=== PATIENT | male | born 1955 | race Caucasian/White ===

== ENCOUNTER 2016-02-25 14:46 | Emergency (ER) | payer OTHER ==
[~2016-02-25] VITALS: Ht 185.4 cm; Wt 138.6 kg
[~2016-02-25 14:46] MED LIST: ALLERGY RELIEF10 M1 PO; ALLOPURINOL300 MG PO; AMLACTIN TP; ARTIFICIAL TEAR15 M7 OP; ASPART; ASPI325T6 PO; ASPIRIN 81M81 MG/TA2 PO; ASPIRIN E.C. 8181 MG PO; BACTROBAN15 GM TOP; BENADRYL25 M2 PO; BENADRYL50 MG; BENADRYL50 MG PO; BENTYL 10MG10 MG/CAP PO; BISACODYL5 MG PO; BUDEPRION SR100 MG PO; CARAFATE 1GM1 G PO; CARDENE 30MG CA30 M1 PO; CARDIZEM120 MG; CINNAMON500 MG PO; CLARITIN 1010 MG/TAB PO; CLARITIN LIQUI-10 MG; COLACE-T100 MG PO; CROMOLYN; CYCLOBENZAPRINE10 MG PO; DETEMIR SQ; DIPHENHYDRAMINE25 MG PO; DUO-KAPS1 CAP PO; FERROUS SU325 MG/TAB PO; FIBRO-XL1 CAP PO; FLOMAX 0.40.4 MG/CAP PO; FLONASE NASAL S16 GM NS; GLUCOPHAGE500 MG/TAB PO; HCTZ12.5TAB PO; HEMORRHOIDAL RC; HYDROCHLOR50 MG PO; HYDRODIURIL50 MG PO; INSULIN N (N100 U/ML SC; K-DUR 2020 MEQ PO; KLOR-CON M2020 MEQ PO; LAMISIL AT1% TOP; LASIX 20MG TABL20 MG PO; LEVEMIR100 U/ML SQ; LEVITRA20 MG PO; LIORESAL20 MG PO; LIPITOR 10MG10 MG PO; LIPITOR20 MG PO; LISINOPRIL40 MG PO; LOPRESSOR 550 MG/TAB PO; LOTRIMIN15 GM TOP; MORPHINE 1515 MG/TAB PO; MORPHINE SULFAT30 M5 PO; MOTRIN800 MG PO; MS CONTIN 115 MG/TAB PO; MS CONTIN 330 MG/TAB PO; MULTI VITAMINS1 TAB PO; MULTI-VITAMIN W1 TA1 PO; NATURAL C500 MG PO; NEURONTIN600 MG/TAB PO; NOVOLIN N100 U/ML SC; NOVOLOG FLEX100 U/ML SC; NOVOLOG FLEX100 U/ML SQ; OMEPRAZOLE20 MG PO; ONGLYZA5 MG PO; ORAMORPH SR15 MG PO; PERCOCET 325 MG1 TA2 PO; PERIDEX (CHLOR480 ML MM; PHENERGAN 25 TA25 MG PO; PHENTERMINE15 MG; POTASSIUM CHLO10 ME2 PO; PRILOSEC 20MG20 MG; PRILOSEC 20MG20 MG PO; PROAIR HFA0.09 MG/AC IH; SEN-O-TABS8.6 MG PO; SENNO8.6 MG PO; SIMVASTATIN80 MG PO; STOOL SOFTENER100 M2 PO; TIAZAC240 MG PO; TOPROL XL 25MG25 MG PO; TRIAMCINOLONE0.025% TOP; TRIAMCINOLONE0.1% TP; ULTRAM 50MG TAB50 MG; VIAGRA100 MG PO; VITAMIN D 1001000 IU PO; VITAMIN D31000 I1; VITAMIN D31000 IU PO; XIFAXAN200 MG PO; ZESTRIL40 MG PO; ZITHROMAX 250M250 MG PO; ZOCOR 40MG40 MG PO; ZOFRAN 4MG T4 MG/TAB PO; ZYLOPRIM 300MG300 MG PO; [UNRECOGNIZED DRUG - CODE] PO; [UNRECOGNIZED DRUG - OTHER]; [UNRECOGNIZED DRUG - OTHER] TP
[2016-02-25 14:48] VITALS: BP 164/93; TEMP 96.8
[2016-02-25 15:24] LABS: BASO # 0.1 (0.0-0.2); BASO % 0.5 % (0.0-2.0); EOS # 0.4 (0.0-0.7); EOS % 3.7 % (0-4.0); GRAN # 6.4 (1.4-6.5); GRAN % 68.2 % (42.2-75.2); HEMOGLOBIN 12.2 g/dl (13.5-18.0); LYMPH # 1.8 (1.2-3.4); LYMPH % 18.5 % (20.0-51.0); MEAN CELL VOLUME 86 fl (80.0-100.0); MEAN CORPUSCULAR HEMOGLOBIN 27 pg (27.0-31.0); MEAN CORPUSCULAR HGB CONC 31 g/dl (33.0-37.0); MEAN PLATELET VOLUME 10.2 fl (7.4-10.4); MONO # 0.8 (0.1-0.6); MONO % 8.5 % (1.7-9.3); PLATELET COUNT 315 K/mm3 (130-400); RED BLOOD COUNT 4.53 M/mm3 (4.20-5.60); WHITE BLOOD COUNT 9.4 K/mm3 (4.8-10.8)
[2016-02-25 15:34] LABS: ADJUSTED CALCIUM 9.3 mg/dL (8.4-10.2); ALANINE AMINOTRANSFERASE 36 U/L (21-72); ALBUMIN 4.2 gm/dL (3.5-5.0); ALKALINE PHOSPHATASE 110 U/L (50-136); ANION GAP 13 mmol/L (7-16); BILIRUBIN,TOTAL 0.6 mg/dL (0.0-1.0); BLOOD UREA NITROGEN 19 mg/dL (9-20); CALCIUM 9.5 mg/dL (8.4-10.2); CARBON DIOXIDE 22 mmol/L (22-30); CHLORIDE 104 mmol/L (98-107); CREATININE, serum 0.82 mg/dL (0.66-1.25); GLUCOSE 120 mg/dL (74-106); LIPASE 187 U/L (23-300); SODIUM 139 mmol/L (137-145); TOTAL PROTEIN 7.7 gm/dL (6.4-8.2)
[2016-02-25 15:39] LABS: PROTHROMBIN TIME 11.1 SECONDS (9.7-12.8)
[2016-02-25 15:45] LABS: B-TYPE NATRIURETIC PEPTIDE <11 pg/mL (0-125)
[2016-02-25 15:49] LABS: TROPONIN-I < 0.012 ng/mL (0.000-0.034)
[2016-02-25 18:02] VITALS: PULSE 84
== END 2016-02-25 18:05 | disposition home or self-care (01) ==
LOC: COL.ER 14:46
PROVIDERS: Emergency Medicine
DX: R07.9 Chest pain, unspecified (principal); I10 Essential (primary) hypertension; E11.9 Type 2 diabetes mellitus without complications
CPT/HCPCS: J2270; J2405

== ENCOUNTER 2016-04-17 00:32 | Emergency (ER) | payer OTHER ==
[~2016-04-17] VITALS: Ht 185.4 cm; Wt 135.5 kg
[2016-04-17 00:34] VITALS: TEMP 97.7
[2016-04-17 02:10] LABS: BASO # 0.1 (0.0-0.2); BASO % 0.3 % (0.0-2.0); EOS # 0.2 (0.0-0.7); EOS % 1.2 % (0-4.0); GRAN # 12.8 (1.4-6.5); GRAN % 87.9 % (42.2-75.2); HEMATOCRIT 45.3 % (42.0-52.0); HEMOGLOBIN 14.3 g/dl (13.5-18.0); LYMPH % 6.5 % (20.0-51.0); MEAN CELL VOLUME 86 fl (80.0-100.0); MEAN CORPUSCULAR HEMOGLOBIN 27 pg (27.0-31.0); MEAN CORPUSCULAR HGB CONC 32 g/dl (33.0-37.0); MEAN PLATELET VOLUME 10.1 fl (7.4-10.4); MONO # 0.6 (0.1-0.6); MONO % 3.8 % (1.7-9.3); PLATELET COUNT 340 K/mm3 (130-400); RED BLOOD COUNT 5.29 M/mm3 (4.20-5.60); REDCELL DISTRIBUTION WIDTH-CV 15.9 % (11.5-14.5); WHITE BLOOD COUNT 14.6 K/mm3 (4.8-10.8)
[2016-04-17 02:20] LABS: ADJUSTED CALCIUM 9.4 mg/dL (8.4-10.2); ALBUMIN 4.6 gm/dL (3.5-5.0); BILIRUBIN,TOTAL 0.9 mg/dL (0.0-1.0); CALCIUM 9.9 mg/dL (8.4-10.2); CREATININE, serum 0.86 mg/dL (0.66-1.25); POTASSIUM 3.8 mmol/L (3.4-5.0); TOTAL PROTEIN 8.5 gm/dL (6.4-8.2)
[2016-04-17] MEDS ORDERED: ZOFRAN8 MG PO (04:27)
[2016-04-17] MEDS ORDERED: ULTRAM 50MG TAB50 MG PO (04:27)
[2016-04-17 04:39] LABS: PH 5 (5-8); SQUAMOUS EPITHELIAL None Seen /hpf; URINE APPEARANCE Clear; URINE BACTERIA None Seen /hpf; URINE BILIRUBIN Negative (NEGATIVE); URINE BLOOD Negative (NEGATIVE); URINE COLOR Yellow; URINE GLUCOSE 3+ (NEGATIVE); URINE KETONE Negative (NEGATIVE); URINE UROBILINOGEN Negative (NEGATIVE); URINE WBC 0-2 /hpf
[2016-04-17 05:13] VITALS: BP 155/97; PULSE 98
[2016-04-18] MEDS ORDERED: PHENERGAN 25 TA25 MG PO (22:42)
== END 2016-04-17 05:18 | disposition home or self-care (01) ==
LOC: COL.ER 00:32
PROVIDERS: Physician Assistant
DX: R10.84 Generalized abdominal pain (principal); R19.7 Diarrhea, unspecified; R11.2 Nausea with vomiting, unspecified; E11.9 Type 2 diabetes mellitus without complications; Z79.4 Long term (current) use of insulin
CPT/HCPCS: J2270; J2405; J2550; J7030; Q9967

== ENCOUNTER 2016-04-18 19:26 | Emergency (ER) | payer OTHER ==
[~2016-04-18] VITALS: Ht 185.4 cm; Wt 133.6 kg
[~2016-04-18 19:26] MED LIST changes: +ULTRAM 50MG TAB50 MG PO; +ZOFRAN8 MG PO
[2016-04-18 19:34] VITALS: TEMP 98.3
[2016-04-18 20:49] LABS: BASO % 0.5 % (0.0-2.0); EOS # 0.1 (0.0-0.7); EOS % 0.6 % (0-4.0); GRAN # 6.5 (1.4-6.5); GRAN % 84.8 % (42.2-75.2); HEMATOCRIT 42.4 % (42.0-52.0); HEMOGLOBIN 13.5 g/dl (13.5-18.0); LYMPH # 0.5 (1.2-3.4); LYMPH % 5.8 % (20.0-51.0); MEAN CELL VOLUME 85 fl (80.0-100.0); MEAN CORPUSCULAR HEMOGLOBIN 27 pg (27.0-31.0); MEAN CORPUSCULAR HGB CONC 32 g/dl (33.0-37.0); MONO # 0.6 (0.1-0.6); MONO % 7.9 % (1.7-9.3); PLATELET COUNT 253 K/mm3 (130-400); RED BLOOD COUNT 4.98 M/mm3 (4.20-5.60); REDCELL DISTRIBUTION WIDTH-CV 15.9 % (11.5-14.5); WHITE BLOOD COUNT 7.7 K/mm3 (4.8-10.8)
[2016-04-18 21:00] LABS: ADJUSTED CALCIUM 8.5 mg/dL (8.4-10.2); ALBUMIN 3.7 gm/dL (3.5-5.0); BILIRUBIN,TOTAL 0.8 mg/dL (0.0-1.0); CALCIUM 8.3 mg/dL (8.4-10.2); CREATININE, serum 0.89 mg/dL (0.66-1.25); POTASSIUM 3.3 mmol/L (3.4-5.0); TOTAL PROTEIN 7.2 gm/dL (6.4-8.2)
[2016-04-18 21:57] LABS: VENOUS BLOOD GAS BE -2.8 (-4-4); VENOUS BLOOD GAS SAO2 84.4 % (60-80); VENOUS BLOOD GAS SITE VENIPUNCTURE
[2016-04-18] MEDS ORDERED: PHENERGAN 25 TA25 MG PO (22:42)
[2016-04-18 23:01] VITALS: BP 119/71; PULSE 84
== END 2016-04-18 23:09 | disposition home or self-care (01) ==
LOC: COL.ER 19:26
PROVIDERS: Emergency Medicine
DX: E86.9 Volume depletion, unspecified (principal); R11.10 Vomiting, unspecified; R19.7 Diarrhea, unspecified; I10 Essential (primary) hypertension
CPT/HCPCS: J2270; J2550; J7030; J7040

== ENCOUNTER 2016-05-01 12:17 | Emergency (ER) | payer OTHER ==
[~2016-05-01] VITALS: Ht 185.4 cm; Wt 134.5 kg
[2016-05-01 12:19] VITALS: BP 145/93; TEMP 98.4
[2016-05-01] MEDS ORDERED: ZYLOPRIM 300MG300 MG PO (12:42)
[2016-05-01] MEDS ORDERED: CHLOR-TABS4 MG PO (12:44)
[2016-05-01] MEDS ORDERED: B-12 100 MCG (12:45)
[2016-05-01] MEDS ORDERED: BENTYL 10MG10 MG/CAP PO (12:46)
[2016-05-01] MEDS ORDERED: CARDIZEM CD 24240 MG PO (12:46)
[2016-05-01] MEDS ORDERED: JARDIANCE10 (12:47)
[2016-05-01] MEDS ORDERED: NOVLOG SQ (12:48)
[2016-05-01] MEDS ORDERED: LEVEMIR100 U/ML SQ (12:49)
[2016-05-01] MEDS ORDERED: IMDUR 30MG30 MG/TAB PO (12:50)
[2016-05-01] MEDS ORDERED: VICTOZA6 MG/ML SQ (12:51)
[2016-05-01] MEDS ORDERED: PREDNISONE 5MG5 MG PO (12:52)
[2016-05-01 13:38] LABS: BASO % 0.3 % (0.0-2.0); GRAN # 12.9 (1.4-6.5); GRAN % 91.5 % (42.2-75.2); HEMATOCRIT 43.3 % (42.0-52.0); HEMOGLOBIN 13.8 g/dl (13.5-18.0); LYMPH # 0.8 (1.2-3.4); LYMPH % 5.5 % (20.0-51.0); MEAN CELL VOLUME 84 fl (80.0-100.0); MEAN CORPUSCULAR HEMOGLOBIN 27 pg (27.0-31.0); MEAN CORPUSCULAR HGB CONC 32 g/dl (33.0-37.0); MEAN PLATELET VOLUME 10.6 fl (7.4-10.4); MONO # 0.3 (0.1-0.6); MONO % 2.3 % (1.7-9.3); PLATELET COUNT 348 K/mm3 (130-400); RED BLOOD COUNT 5.16 M/mm3 (4.20-5.60); REDCELL DISTRIBUTION WIDTH-CV 15.9 % (11.5-14.5); WHITE BLOOD COUNT 14.1 K/mm3 (4.8-10.8)
[2016-05-01 13:52] LABS: ADJUSTED CALCIUM 9.5 mg/dL (8.4-10.2); ALBUMIN 4.5 gm/dL (3.5-5.0); CALCIUM 9.9 mg/dL (8.4-10.2); CREATININE, serum 0.88 mg/dL (0.66-1.25); TOTAL PROTEIN 8.1 gm/dL (6.4-8.2)
[2016-05-01 14:22] VITALS: PULSE 86
== END 2016-05-01 14:25 | disposition home or self-care (01) ==
LOC: COL.ER 12:17
PROVIDERS: Emergency Medicine
DX: L27.0 Generalized skin eruption due to drugs and medicaments taken internally (principal); T36.8X5A Adverse effect of other systemic antibiotics, initial encounter; E11.9 Type 2 diabetes mellitus without complications; Z79.84 Long term (current) use of oral hypoglycemic drugs
CPT/HCPCS: J1200; J2930; J7030

== ENCOUNTER 2016-05-16 03:24 | Emergency (ER) | payer OTHER ==
[~2016-05-16] VITALS: Ht 185.4 cm; Wt 136.4 kg
[~2016-05-16 03:24] MED LIST changes: +B-12 100 MCG; +CARDIZEM CD 24240 MG PO; +CHLOR-TABS4 MG PO; +IMDUR 30MG30 MG/TAB PO; +JARDIANCE10; +NOVLOG SQ; +PREDNISONE 5MG5 MG PO; +VICTOZA6 MG/ML SQ
[2016-05-16 03:27] VITALS: TEMP 97.9
[2016-05-16 04:28] LABS: BASO # 0.1 (0.0-0.2); BASO % 0.6 % (0.0-2.0); EOS # 0.4 (0.0-0.7); EOS % 4.6 % (0-4.0); GRAN # 6.2 (1.4-6.5); GRAN % 68.1 % (42.2-75.2); HEMOGLOBIN 12.7 g/dl (13.5-18.0); LYMPH # 1.7 (1.2-3.4); LYMPH % 18.7 % (20.0-51.0); MEAN CELL VOLUME 86 fl (80.0-100.0); MEAN CORPUSCULAR HEMOGLOBIN 27 pg (27.0-31.0); MEAN CORPUSCULAR HGB CONC 32 g/dl (33.0-37.0); MEAN PLATELET VOLUME 10.4 fl (7.4-10.4); MONO # 0.7 (0.1-0.6); MONO % 7.6 % (1.7-9.3); PLATELET COUNT 287 K/mm3 (130-400); RED BLOOD COUNT 4.65 M/mm3 (4.20-5.60); REDCELL DISTRIBUTION WIDTH-CV 16.8 % (11.5-14.5); WHITE BLOOD COUNT 9.1 K/mm3 (4.8-10.8)
[2016-05-16 04:41] LABS: ADJUSTED CALCIUM 9.3 mg/dL (8.4-10.2); BILIRUBIN,TOTAL 0.8 mg/dL (0.0-1.0); CALCIUM 9.3 mg/dL (8.4-10.2); CREATININE, serum 0.85 mg/dL (0.66-1.25); POTASSIUM 3.7 mmol/L (3.4-5.0); TOTAL PROTEIN 7.5 gm/dL (6.4-8.2)
[2016-05-16] MEDS ORDERED: PREDNISONE20 MG PO (05:09)
[2016-05-16 05:24] VITALS: BP 140/84; PULSE 90
== END 2016-05-16 05:26 | disposition home or self-care (01) ==
LOC: COL.ER 03:24
PROVIDERS: Emergency Medicine
DX: L26 Exfoliative dermatitis (principal); E11.9 Type 2 diabetes mellitus without complications
CPT/HCPCS: J1200; J2930; J3010

== ENCOUNTER 2016-06-28 20:55 | Emergency (ER) | payer OTHER ==
[~2016-06-28] VITALS: Ht 185.4 cm; Wt 130.0 kg
[~2016-06-28 20:55] MED LIST changes: +PREDNISONE20 MG PO
[2016-06-28 20:56] VITALS: TEMP 98.7
[2016-06-28 22:18] LABS: BASO # 0.1 (0.0-0.2); BASO % 0.6 % (0.0-2.0); EOS # 0.3 (0.0-0.7); EOS % 2.7 % (0-4.0); GRAN # 6.8 (1.4-6.5); GRAN % 70.4 % (42.2-75.2); HEMATOCRIT 43.7 % (42.0-52.0); LYMPH # 1.7 (1.2-3.4); LYMPH % 17.9 % (20.0-51.0); MEAN CELL VOLUME 86 fl (80.0-100.0); MEAN CORPUSCULAR HEMOGLOBIN 27 pg (27.0-31.0); MEAN CORPUSCULAR HGB CONC 32 g/dl (33.0-37.0); MEAN PLATELET VOLUME 10.4 fl (7.4-10.4); MONO # 0.8 (0.1-0.6); MONO % 8.1 % (1.7-9.3); PLATELET COUNT 300 K/mm3 (130-400); RED BLOOD COUNT 5.11 M/mm3 (4.20-5.60); REDCELL DISTRIBUTION WIDTH-CV 17.6 % (11.5-14.5); WHITE BLOOD COUNT 9.7 K/mm3 (4.8-10.8)
[2016-06-28 22:22] LABS: PH 5 (5-8); SQUAMOUS EPITHELIAL 0-2 /hpf; URINE APPEARANCE Clear; URINE BACTERIA None Seen /hpf; URINE BILIRUBIN Negative (NEGATIVE); URINE BLOOD Negative (NEGATIVE); URINE COLOR Yellow; URINE GLUCOSE 3+ (NEGATIVE); URINE KETONE Negative (NEGATIVE); URINE RBC 0-2 /hpf; URINE UROBILINOGEN Negative (NEGATIVE)
[2016-06-28 22:26] LABS: ADJUSTED CALCIUM 9.1 mg/dL (8.4-10.2); BILIRUBIN,TOTAL 0.8 mg/dL (0.0-1.0); CALCIUM 9.1 mg/dL (8.4-10.2); CREATININE, serum 0.92 mg/dL (0.66-1.25); POTASSIUM 3.8 mmol/L (3.4-5.0); TOTAL PROTEIN 7.7 gm/dL (6.4-8.2)
[2016-06-28 22:43] VITALS: BP 148/71; PULSE 90
== END 2016-06-28 23:09 | disposition home or self-care (01) ==
LOC: COL.ER 20:55
PROVIDERS: Emergency Medicine
DX: M54.5 Low back pain (principal); G89.29 Other chronic pain; E11.9 Type 2 diabetes mellitus without complications; I10 Essential (primary) hypertension; K27.9 Peptic ulcer, site unspecified, unspecified as acute or chronic, without hemorrhage or perforation
CPT/HCPCS: J2765; J3010; J7030

== ENCOUNTER 2016-08-02 16:49 | Emergency (ER) | payer OTHER ==
[~2016-08-02] VITALS: Ht 185.4 cm; Wt 129.1 kg
[2016-08-02 16:51] VITALS: TEMP 98
[2016-08-02 18:07] LABS: PH 5 (5-8); SQUAMOUS EPITHELIAL None Seen /hpf; URINE APPEARANCE Clear; URINE BACTERIA None Seen /hpf; URINE BILIRUBIN Negative (NEGATIVE); URINE BLOOD Negative (NEGATIVE); URINE COLOR Yellow; URINE GLUCOSE 3+ (NEGATIVE); URINE KETONE Negative (NEGATIVE); URINE RBC 0-2 /hpf; URINE UROBILINOGEN Negative (NEGATIVE); URINE WBC 0-2 /hpf
[2016-08-02 19:21] VITALS: BP 124/74; PULSE 89
[2016-08-02] MEDS ORDERED: MS CONTIN 115 MG/TAB PO (19:46)
== END 2016-08-02 20:00 | disposition home or self-care (01) ==
LOC: COL.ER 16:49
PROVIDERS: Emergency Medicine
DX: S20.211A Contusion of right front wall of thorax, initial encounter (principal); S80.01XA Contusion of right knee, initial encounter; S80.211A Abrasion, right knee, initial encounter; M25.511 Pain in right shoulder; M54.6 Pain in thoracic spine; G89.29 Other chronic pain; W01.198A Fall on same level from slipping, tripping and stumbling with subsequent striking against other object, initial encounter; Y92.828 Other wilderness area as the place of occurrence of the external cause; E11.9 Type 2 diabetes mellitus without complications; Z79.84 Long term (current) use of oral hypoglycemic drugs
CPT/HCPCS: A9284; J2270; J2405

== ENCOUNTER 2016-09-29 18:39 | Observation (INO) | payer OTHER ==
[2016-09-29] VITALS (94 sets, daily range): BP systolic 142; BP diastolic 77; PULSE 83; TEMP 97.1; O2SAT 91–98
[~2016-09-29] VITALS: Ht 185.4 cm; Wt 126.0 kg
[2016-09-29 19:40] LABS: BASO # 0.1 (0.0-0.2); BASO % 0.4 % (0.0-2.0); EOS # 0.2 (0.0-0.7); EOS % 1.4 % (0-4.0); GRAN # 9.4 (1.4-6.5); GRAN % 81.4 % (42.2-75.2); HEMATOCRIT 45.7 % (42.0-52.0); HEMOGLOBIN 15.1 g/dl (13.5-18.0); LYMPH # 1.2 (1.2-3.4); LYMPH % 10.4 % (20.0-51.0); MEAN CELL VOLUME 89 fl (80.0-100.0); MEAN CORPUSCULAR HEMOGLOBIN 29 pg (27.0-31.0); MEAN CORPUSCULAR HGB CONC 33 g/dl (33.0-37.0); MEAN PLATELET VOLUME 12.1 fl (7.4-10.4); MONO # 0.7 (0.1-0.6); MONO % 6.1 % (1.7-9.3); PLATELET COUNT 186 K/mm3 (130-400); RED BLOOD COUNT 5.13 M/mm3 (4.20-5.60); REDCELL DISTRIBUTION WIDTH-CV 15.3 % (11.5-14.5); WHITE BLOOD COUNT 11.5 K/mm3 (4.8-10.8)
[2016-09-29 19:59] LABS: ADJUSTED CALCIUM 8.8 mg/dL (8.4-10.2); ALANINE AMINOTRANSFERASE 21 U/L (21-72); ALBUMIN 4.3 gm/dL (3.5-5.0); ALKALINE PHOSPHATASE 91 U/L (50-136); ANION GAP 12 mmol/L (7-16); BILIRUBIN,TOTAL 0.7 mg/dL (0.0-1.0); BLOOD UREA NITROGEN 16 mg/dL (9-20); CARBON DIOXIDE 22 mmol/L (22-30); CHLORIDE 104 mmol/L (98-107); CREATININE, serum 0.85 mg/dL (0.66-1.25); GLUCOSE 127 mg/dL (74-106); LIPASE 155 U/L (23-300); POTASSIUM 3.8 mmol/L (3.4-5.0); SODIUM 139 mmol/L (137-145); TOTAL PROTEIN 7.6 gm/dL (6.4-8.2)
[2016-09-29 20:02] LABS: C-REACTIVE PROTEIN 0.5 mg/dL (0.0-0.9)
[2016-09-29 20:05] LABS: B-TYPE NATRIURETIC PEPTIDE 12 pg/mL (0-125)
[2016-09-29 20:11] LABS: TROPONIN-I < 0.012 ng/mL (0.000-0.034)
[2016-09-29 22:39] LABS: MAGNESIUM 1.8 mg/dL (1.6-2.3); PROTHROMBIN TIME 10.7 SECONDS (9.7-12.8)
[2016-09-29 22:42] LABS: PARTIAL THROMBOPLASTIN TIME 31.1 SECONDS (26.0-37.0)
[2016-09-29] MEDS ORDERED: VITAMIN C500 MG PO (22:43)
[2016-09-30] VITALS (453 sets, daily range): BP systolic 101–122; BP diastolic 55–79; PULSE 60–98; TEMP 96.8–98.1; O2SAT 82–99
[2016-09-30 00:44] LABS: PH 5 (5-8); SQUAMOUS EPITHELIAL None Seen /hpf; URINE APPEARANCE Clear; URINE BACTERIA None Seen /hpf; URINE BILIRUBIN Negative (NEGATIVE); URINE BLOOD Negative (NEGATIVE); URINE COLOR Yellow; URINE GLUCOSE 3+ (NEGATIVE); URINE KETONE Negative (NEGATIVE); URINE RBC 0-2 /hpf; URINE UROBILINOGEN Negative (NEGATIVE); URINE WBC 0-2 /hpf
[2016-09-30 06:05] LABS: BASO % 0.5 % (0.0-2.0); EOS # 0.2 (0.0-0.7); EOS % 1.9 % (0-4.0); GRAN % 71.7 % (42.2-75.2); HEMATOCRIT 43.2 % (42.0-52.0); LYMPH # 1.7 (1.2-3.4); LYMPH % 19.7 % (20.0-51.0); MEAN CELL VOLUME 92 fl (80.0-100.0); MEAN CORPUSCULAR HEMOGLOBIN 30 pg (27.0-31.0); MEAN CORPUSCULAR HGB CONC 32 g/dl (33.0-37.0); MEAN PLATELET VOLUME 10.2 fl (7.4-10.4); MONO # 0.5 (0.1-0.6); PLATELET COUNT 250 K/mm3 (130-400); REDCELL DISTRIBUTION WIDTH-CV 15.7 % (11.5-14.5); WHITE BLOOD COUNT 8.4 K/mm3 (4.8-10.8)
[2016-09-30 06:19] LABS: ADJUSTED CALCIUM 8.9 mg/dL (8.4-10.2); ALANINE AMINOTRANSFERASE 22 U/L (21-72); ALBUMIN 3.9 gm/dL (3.5-5.0); ALKALINE PHOSPHATASE 85 U/L (50-136); ANION GAP 11 mmol/L (7-16); BILIRUBIN,TOTAL 1.1 mg/dL (0.0-1.0); BLOOD UREA NITROGEN 17 mg/dL (9-20); CALCIUM 8.8 mg/dL (8.4-10.2); CARBON DIOXIDE 25 mmol/L (22-30); CHLORIDE 103 mmol/L (98-107); CHOLESTEROL 122 mg/dL (120-200); CREATININE, serum 0.76 mg/dL (0.66-1.25); GLUCOSE 108 mg/dL (74-106); HDL CHOLESTEROL 28 mg/dL; LDL CHOLESTEROL 68 mg/dL; POTASSIUM 3.8 mmol/L (3.4-5.0); SODIUM 139 mmol/L (137-145); TRIGLYCERIDE 129 mg/dL
[2016-09-30 06:30] LABS: TROPONIN-I < 0.012 ng/mL (0.000-0.034)
== END 2016-09-30 13:15 | disposition home or self-care (01) ==
LOC: COL.ER 18:39 → ICU 21:10
PROVIDERS: Emergency Medicine; Internal Medicine; Nurse Practitioner Family
DX: I20.9 Angina pectoris, unspecified (principal); I10 Essential (primary) hypertension; Z87.891 Personal history of nicotine dependence; E66.01 Morbid (severe) obesity due to excess calories; Z82.49 Family history of ischemic heart disease and other diseases of the circulatory system; G89.29 Other chronic pain; M54.2 Cervicalgia; M54.9 Dorsalgia, unspecified; E11.9 Type 2 diabetes mellitus without complications; Z79.4 Long term (current) use of insulin; G47.33 Obstructive sleep apnea (adult) (pediatric); E78.5 Hyperlipidemia, unspecified; M10.9 Gout, unspecified; N40.0 Benign prostatic hyperplasia without lower urinary tract symptoms
CPT/HCPCS: A9502; G0378; J1650; J1815; J2270; J2405; J2785; J7030

== ENCOUNTER 2016-12-13 17:52 | Emergency (ER) | payer OTHER ==
[~2016-12-13] VITALS: Ht 185.4 cm; Wt 125.0 kg
[~2016-12-13 17:52] MED LIST changes: -B-12 100 MCG; +B-121000 MCG PO; +ERYTHROMYCIN 2%60 ML TP; +JARDIANCE10 PO; +LIDODERM 5% PATC1 EA TP; +NORFLEX 10100 MG/TAB PO; -PHENTERMINE15 MG; +PROTONIX 40MG T40 MG PO; +QSYMIA 7.5 MG-41 CER PO; +VITAMIN C500 MG PO; +ZYRTEC 10MG10 MG PO
[2016-12-13 17:59] VITALS: TEMP 97.5
[2016-12-13 18:14] LABS: BASO # 0.1 (0.0-0.2); BASO % 0.5 % (0.0-2.0); EOS # 0.4 (0.0-0.7); EOS % 3.5 % (0-4.0); GRAN # 6.7 (1.4-6.5); GRAN % 68.2 % (42.2-75.2); HEMATOCRIT 44.4 % (42.0-52.0); HEMOGLOBIN 14.8 g/dl (13.5-18.0); LYMPH % 20.6 % (20.0-51.0); MEAN CELL VOLUME 94 fl (80.0-100.0); MEAN CORPUSCULAR HEMOGLOBIN 31 pg (27.0-31.0); MEAN CORPUSCULAR HGB CONC 33 g/dl (33.0-37.0); MEAN PLATELET VOLUME 10.7 fl (7.4-10.4); MONO # 0.7 (0.1-0.6); MONO % 6.7 % (1.7-9.3); PLATELET COUNT 222 K/mm3 (130-400); RED BLOOD COUNT 4.73 M/mm3 (4.20-5.60); WHITE BLOOD COUNT 9.9 K/mm3 (4.8-10.8)
[2016-12-13 18:25] LABS: ADJUSTED CALCIUM 9.1 mg/dL (8.4-10.2); ALANINE AMINOTRANSFERASE 20 U/L (21-72); ALBUMIN 4.4 gm/dL (3.5-5.0); ALKALINE PHOSPHATASE 86 U/L (50-136); ANION GAP 15 mmol/L (7-16); BILIRUBIN,TOTAL 0.8 mg/dL (0.0-1.0); BLOOD UREA NITROGEN 17 mg/dL (9-20); CALCIUM 9.4 mg/dL (8.4-10.2); CARBON DIOXIDE 22 mmol/L (22-30); CHLORIDE 104 mmol/L (98-107); CREATININE, serum 1.03 mg/dL (0.66-1.25); GLUCOSE 101 mg/dL (74-106); SODIUM 141 mmol/L (137-145); TOTAL PROTEIN 7.7 gm/dL (6.4-8.2)
[2016-12-13 18:26] LABS: PROTHROMBIN TIME 10.8 SECONDS (9.7-12.8)
[2016-12-13] MEDS ORDERED: NAPROXEN 3375 MG/TAB PO (18:35)
[2016-12-13 18:39] LABS: B-TYPE NATRIURETIC PEPTIDE < 11 pg/mL (0-125); TROPONIN-I < 0.012 ng/mL (0.000-0.034)
[2016-12-13 18:46] LABS: LIPASE 191 U/L (23-300)
[2016-12-13 20:50] VITALS: BP 120/73; PULSE 81
== END 2016-12-13 20:56 | disposition home or self-care (01) ==
LOC: COL.ER 17:52
PROVIDERS: Emergency Medicine
DX: R07.89 Other chest pain (principal); I10 Essential (primary) hypertension; E78.5 Hyperlipidemia, unspecified; E10.9 Type 1 diabetes mellitus without complications; Z98.890 Other specified postprocedural states; Z79.82 Long term (current) use of aspirin; Z79.4 Long term (current) use of insulin
CPT/HCPCS: J1885; J2270; J2405; J7030

== ENCOUNTER → 2017-01-19 | Outpatient (CLI) | payer OTHER ==
[~2017-01-19] MED LIST changes: +NAPROXEN 3375 MG/TAB PO
== END ==
LOC: MHCPAIN 11:44
DX: G89.29 Other chronic pain (principal); M47.24 Other spondylosis with radiculopathy, thoracic region
CPT/HCPCS: G0463

== ENCOUNTER 2017-02-18 22:17 | Emergency (ER) | payer OTHER ==
[~2017-02-18] VITALS: Ht 185.4 cm; Wt 123.2 kg
[~2017-02-18 22:17] MED LIST changes: -QSYMIA PO
[2017-02-18 22:50] LABS: COLLECTION METHOD CLEAN CATCH
[2017-02-18 22:55] LABS: PH 7 (5-8); SQUAMOUS EPITHELIAL None Seen /hpf; URINE APPEARANCE Clear; URINE BACTERIA None Seen /hpf; URINE BILIRUBIN Negative (NEGATIVE); URINE BLOOD Negative (NEGATIVE); URINE COLOR Straw; URINE GLUCOSE 3+ (NEGATIVE); URINE KETONE 1+ (NEGATIVE); URINE LEUKOCYTE ESTERASE Negative (NEGATIVE); URINE NITRATE Negative (NEGATIVE); URINE PROTEIN(semi-quant) Negative (NEGATIVE); URINE RBC 0-2 /hpf; URINE UROBILINOGEN Negative (NEGATIVE)
[2017-02-18 23:09] LABS: HEMATOCRIT 48.4 % (42.0-52.0); HEMOGLOBIN 16.5 g/dl (13.5-18.0); MEAN CELL VOLUME 92 fl (80.0-100.0); MEAN CORPUSCULAR HEMOGLOBIN 32 pg (27.0-31.0); MEAN CORPUSCULAR HGB CONC 34 g/dl (33.0-37.0); MEAN PLATELET VOLUME 11.1 fl (7.4-10.4); PLATELET COUNT 317 K/mm3 (130-400); RED BLOOD COUNT 5.24 M/mm3 (4.20-5.60); REDCELL DISTRIBUTION WIDTH-CV 13.3 % (11.5-14.5)
[2017-02-18 23:23] LABS: ALANINE AMINOTRANSFERASE 26 U/L (21-72); ALBUMIN 5.2 gm/dL (3.5-5.0); ALKALINE PHOSPHATASE 105 U/L (50-136); ANION GAP 20 mmol/L (7-16); AST,SGOT 25 U/L (15-37); BAND 1 % (0-10); BILIRUBIN,TOTAL 0.6 mg/dL (0.0-1.0); BLOOD UREA NITROGEN 20 mg/dL (9-20); C-REACTIVE PROTEIN 0.6 mg/dL (0.0-0.9); CALCIUM 10.3 mg/dL (8.4-10.2); CARBON DIOXIDE 18 mmol/L (22-30); CHLORIDE 102 mmol/L (98-107); CREATININE, serum 0.88 mg/dL (0.66-1.25); GLUCOSE 237 mg/dL (74-106); LYMPHOCYTE 5 % (20.0-51.0); NEUTROPHILS 94 % (42.0-75.2); POTASSIUM 4.2 mmol/L (3.4-5.0); SODIUM 141 mmol/L (137-145); TOTAL PROTEIN 8.5 gm/dL (6.4-8.2)
[2017-02-18 23:24] LABS: PLATELET ESTIMATE NORMAL (NORMAL)
[2017-02-18 23:35] LABS: TROPONIN-I < 0.012 ng/mL (0.000-0.034)
[2017-02-19] MEDS ORDERED: LEVEMIR100 U/ML SQ (02:01)
[2017-02-19] MEDS ORDERED: QSYMIA PO (02:07)
[2017-02-19] MEDS ORDERED: MORPHINE 1515 MG/TAB PO (03:30)
[2017-02-19] MEDS ORDERED: PHENERGAN 25 TA25 MG PO (03:30)
[2017-02-19 08:17] VITALS: BP 149/74; PULSE 84; TEMP 97.2
== END 2017-02-19 08:17 | disposition home or self-care (01) ==
LOC: COL.ER 22:17
PROVIDERS: Emergency Medicine
DX: M54.6 Pain in thoracic spine (principal); E87.2 Acidosis; R33.9 Retention of urine, unspecified; I10 Essential (primary) hypertension; E78.5 Hyperlipidemia, unspecified; E11.9 Type 2 diabetes mellitus without complications; E66.9 Obesity, unspecified; Z79.82 Long term (current) use of aspirin; Z79.4 Long term (current) use of insulin
CPT/HCPCS: A9585; J1885; J2270; J2405; J2550; J7030

== ENCOUNTER → 2017-02-18 | Outpatient (CLI) | payer OTHER ==
[~2017-02-18] MED LIST changes: +QSYMIA PO
== END ==
LOC: MHCPAIN 10:24
DX: M47.24 Other spondylosis with radiculopathy, thoracic region (principal); M51.14 Intervertebral disc disorders with radiculopathy, thoracic region; M48.04 Spinal stenosis, thoracic region
CPT/HCPCS: J1100; J2250; J3010; Q9967

== ENCOUNTER → 2017-03-05 | Outpatient (CLI) | payer OTHER ==
[~2017-03-05] MED LIST changes: +QSYMIA PO
== END ==
LOC: MHCPAIN 11:05
DX: G89.29 Other chronic pain (principal); M47.27 Other spondylosis with radiculopathy, lumbosacral region; M53.3 Sacrococcygeal disorders, not elsewhere classified; M96.1 Postlaminectomy syndrome, not elsewhere classified; M47.814 Spondylosis without myelopathy or radiculopathy, thoracic region
CPT/HCPCS: G0463

== ENCOUNTER 2017-03-13 21:55 | Emergency (ER) | payer OTHER ==
[~2017-03-13] VITALS: Ht 185.4 cm; Wt 127.3 kg
[2017-03-13 21:59] VITALS: TEMP 98.3
[2017-03-13 22:32] LABS: INFLUENZA A POSITIVE; INFLUENZA B NEGATIVE
[2017-03-13] MEDS ORDERED: TAMIFLU 75MG75 MG PO (22:57)
[2017-03-13 23:53] VITALS: BP 132/74; PULSE 87
== END 2017-03-13 23:50 | disposition home or self-care (01) ==
LOC: COL.ER 21:55
PROVIDERS: Emergency Medicine
DX: J10.1 Influenza due to other identified influenza virus with other respiratory manifestations (principal); I10 Essential (primary) hypertension; E11.9 Type 2 diabetes mellitus without complications; E78.5 Hyperlipidemia, unspecified; E66.9 Obesity, unspecified; Z79.82 Long term (current) use of aspirin; Z79.4 Long term (current) use of insulin; Z98.890 Other specified postprocedural states

== ENCOUNTER 2017-03-21 03:17 | Emergency (ER) | payer OTHER ==
[~2017-03-21] VITALS: Ht 185.4 cm; Wt 125.0 kg
[~2017-03-21 03:17] MED LIST changes: +TAMIFLU 75MG75 MG PO
[2017-03-21 03:22] VITALS: TEMP 97.5
[2017-03-21 03:54] LABS: BASO # 0.1 (0.0-0.2); BASO % 0.4 % (0.0-2.0); EOS # 0.3 (0.0-0.7); EOS % 2.3 % (0-4.0); GRAN # 10.6 (1.4-6.5); GRAN % 75.9 % (42.2-75.2); HEMATOCRIT 45.9 % (42.0-52.0); HEMOGLOBIN 15.4 g/dl (13.5-18.0); LYMPH % 14.4 % (20.0-51.0); MEAN CELL VOLUME 93 fl (80.0-100.0); MEAN CORPUSCULAR HEMOGLOBIN 31 pg (27.0-31.0); MEAN CORPUSCULAR HGB CONC 34 g/dl (33.0-37.0); MEAN PLATELET VOLUME 9.7 fl (7.4-10.4); MONO # 0.9 (0.1-0.6); MONO % 6.3 % (1.7-9.3); PLATELET COUNT 258 K/mm3 (130-400); RED BLOOD COUNT 4.94 M/mm3 (4.20-5.60); REDCELL DISTRIBUTION WIDTH-CV 13.3 % (11.5-14.5)
[2017-03-21 04:08] LABS: ALBUMIN 4.5 gm/dL (3.5-5.0); BILIRUBIN,TOTAL 0.9 mg/dL (0.0-1.0); C-REACTIVE PROTEIN 0.6 mg/dL (0.0-0.9); CALCIUM 9.3 mg/dL (8.4-10.2); CREATININE, serum 0.87 mg/dL (0.66-1.25); TOTAL PROTEIN 7.7 gm/dL (6.4-8.2)
[2017-03-21] MEDS ORDERED: DOXYCYCLINE 10100 MG PO (05:56)
[2017-03-21 06:22] VITALS: BP 157/68; PULSE 68
== END 2017-03-21 06:25 | disposition home or self-care (01) ==
LOC: COL.ER 03:17
PROVIDERS: Emergency Medicine
DX: J20.9 Acute bronchitis, unspecified (principal); J11.1 Influenza due to unidentified influenza virus with other respiratory manifestations; E11.9 Type 2 diabetes mellitus without complications; Z87.891 Personal history of nicotine dependence; Z98.890 Other specified postprocedural states; Z79.4 Long term (current) use of insulin; Z79.82 Long term (current) use of aspirin
CPT/HCPCS: J2270; J2405; J7030

== ENCOUNTER → 2017-04-13 | Outpatient (CLI) | payer OTHER ==
[~2017-04-13] MED LIST changes: +DOXYCYCLINE 10100 MG PO
== END ==
LOC: MHCPAIN 11:08
DX: G89.29 Other chronic pain (principal); M47.817 Spondylosis without myelopathy or radiculopathy, lumbosacral region; M53.3 Sacrococcygeal disorders, not elsewhere classified; M47.814 Spondylosis without myelopathy or radiculopathy, thoracic region; M96.1 Postlaminectomy syndrome, not elsewhere classified
CPT/HCPCS: G0463

== ENCOUNTER → 2017-04-15 | Outpatient (CLI) | payer OTHER | LOC: MHCPAIN 12:30 | DX: M47.817 Spondylosis without myelopathy or radiculopathy, lumbosacral region (principal) ==

== ENCOUNTER 2017-04-19 14:27 | Emergency (ER) | payer OTHER ==
[~2017-04-19] VITALS: Ht 185.4 cm; Wt 124.1 kg
[2017-04-19 14:31] VITALS: TEMP 97.9
[2017-04-19 14:51] LABS: BASO # 0.1 (0.0-0.2); BASO % 0.6 % (0.0-2.0); EOS # 0.3 (0.0-0.7); EOS % 3.4 % (0-4.0); GRAN # 6.8 (1.4-6.5); GRAN % 69.7 % (42.2-75.2); HEMATOCRIT 46.1 % (42.0-52.0); HEMOGLOBIN 15.4 g/dl (13.5-18.0); LYMPH # 1.9 (1.2-3.4); LYMPH % 19.3 % (20.0-51.0); MEAN CELL VOLUME 94 fl (80.0-100.0); MEAN CORPUSCULAR HEMOGLOBIN 31 pg (27.0-31.0); MEAN CORPUSCULAR HGB CONC 33 g/dl (33.0-37.0); MONO # 0.7 (0.1-0.6); MONO % 6.7 % (1.7-9.3); PLATELET COUNT 255 K/mm3 (130-400); RED BLOOD COUNT 4.91 M/mm3 (4.20-5.60); REDCELL DISTRIBUTION WIDTH-CV 13.9 % (11.5-14.5)
[2017-04-19 15:08] LABS: ALANINE AMINOTRANSFERASE 21 U/L (21-72); ALBUMIN 4.4 gm/dL (3.5-5.0); ALKALINE PHOSPHATASE 92 U/L (50-136); ANION GAP 14 mmol/L (7-16); AST,SGOT 27 U/L (15-37); BILIRUBIN,TOTAL 0.9 mg/dL (0.0-1.0); BLOOD UREA NITROGEN 18 mg/dL (9-20); CALCIUM 8.9 mg/dL (8.4-10.2); CARBON DIOXIDE 20 mmol/L (22-30); CHLORIDE 104 mmol/L (98-107); CREATININE, serum 0.85 mg/dL (0.66-1.25); GLUCOSE 137 mg/dL (74-106); POTASSIUM 3.8 mmol/L (3.4-5.0); SODIUM 139 mmol/L (137-145); TOTAL PROTEIN 7.6 gm/dL (6.4-8.2)
[2017-04-19 15:19] LABS: TROPONIN-I < 0.012 ng/mL (0.000-0.034)
[2017-04-19 17:26] VITALS: BP 122/66; PULSE 96
== END 2017-04-19 17:27 | disposition home or self-care (01) ==
LOC: COL.ER 14:27
PROVIDERS: Emergency Medicine
DX: R07.9 Chest pain, unspecified (principal); I10 Essential (primary) hypertension; E11.9 Type 2 diabetes mellitus without complications; E78.5 Hyperlipidemia, unspecified; J44.9 Chronic obstructive pulmonary disease, unspecified; E66.01 Morbid (severe) obesity due to excess calories; Z79.4 Long term (current) use of insulin; Z79.82 Long term (current) use of aspirin
CPT/HCPCS: J1885; J2405; J7030

== ENCOUNTER → 2017-04-19 | Outpatient (CLI) | payer OTHER | LOC: MHCPAIN 14:01 | DX: G89.29 Other chronic pain (principal); M47.817 Spondylosis without myelopathy or radiculopathy, lumbosacral region; M54.16 Radiculopathy, lumbar region; M53.3 Sacrococcygeal disorders, not elsewhere classified; M96.1 Postlaminectomy syndrome, not elsewhere classified; M47.814 Spondylosis without myelopathy or radiculopathy, thoracic region | CPT/HCPCS: G0463 ==

== ENCOUNTER → 2017-04-23 | Outpatient (CLI) | payer OTHER | LOC: MHCPAIN 08:10 | DX: G89.29 Other chronic pain (principal); M47.27 Other spondylosis with radiculopathy, lumbosacral region; M47.814 Spondylosis without myelopathy or radiculopathy, thoracic region; M53.3 Sacrococcygeal disorders, not elsewhere classified; M96.1 Postlaminectomy syndrome, not elsewhere classified | CPT/HCPCS: G0463 ==

== ENCOUNTER 2017-04-27 20:16 | Emergency (ER) | payer OTHER ==
[~2017-04-27] VITALS: Ht 185.4 cm; Wt 124.5 kg
[2017-04-27 20:21] VITALS: TEMP 97.8
[2017-04-27 20:29] LABS: BASO # 0.1 (0.0-0.2); BASO % 0.6 % (0.0-2.0); EOS # 0.4 (0.0-0.7); EOS % 4.2 % (0-4.0); GRAN # 6.7 (1.4-6.5); GRAN % 67.9 % (42.2-75.2); HEMATOCRIT 46.4 % (42.0-52.0); HEMOGLOBIN 15.6 g/dl (13.5-18.0); LYMPH % 20.6 % (20.0-51.0); MEAN CELL VOLUME 93 fl (80.0-100.0); MEAN CORPUSCULAR HEMOGLOBIN 31 pg (27.0-31.0); MEAN CORPUSCULAR HGB CONC 34 g/dl (33.0-37.0); MEAN PLATELET VOLUME 10.2 fl (7.4-10.4); MONO # 0.6 (0.1-0.6); MONO % 6.2 % (1.7-9.3); PLATELET COUNT 241 K/mm3 (130-400); RED BLOOD COUNT 4.99 M/mm3 (4.20-5.60)
[2017-04-27 21:12] LABS: ALANINE AMINOTRANSFERASE 30 U/L (21-72); ALBUMIN 4.3 gm/dL (3.5-5.0); ALKALINE PHOSPHATASE 96 U/L (50-136); ANION GAP 13 mmol/L (7-16); AST,SGOT 17 U/L (15-37); BILIRUBIN,TOTAL 0.6 mg/dL (0.0-1.0); BLOOD UREA NITROGEN 19 mg/dL (9-20); CALCIUM 8.9 mg/dL (8.4-10.2); CARBON DIOXIDE 22 mmol/L (22-30); CHLORIDE 105 mmol/L (98-107); CREATININE, serum 0.92 mg/dL (0.66-1.25); GLUCOSE 116 mg/dL (74-106); LIPASE 268 U/L (23-300); POTASSIUM 4.1 mmol/L (3.4-5.0); SODIUM 140 mmol/L (137-145); TOTAL PROTEIN 7.3 gm/dL (6.4-8.2)
[2017-04-27 21:24] LABS: TROPONIN-I < 0.012 ng/mL (0.000-0.034)
[2017-04-27 22:15] VITALS: BP 138/78; PULSE 72
== END 2017-04-27 22:15 | disposition home or self-care (01) ==
LOC: COL.ER 20:16
PROVIDERS: Emergency Medicine
DX: R07.89 Other chest pain (principal); E11.9 Type 2 diabetes mellitus without complications; I10 Essential (primary) hypertension; E78.5 Hyperlipidemia, unspecified; N40.0 Benign prostatic hyperplasia without lower urinary tract symptoms; M10.9 Gout, unspecified; G89.29 Other chronic pain; Z87.09 Personal history of other diseases of the respiratory system; Z82.49 Family history of ischemic heart disease and other diseases of the circulatory system; Z90.89 Acquired absence of other organs; Z98.890 Other specified postprocedural states; Z79.4 Long term (current) use of insulin; Z79.82 Long term (current) use of aspirin
CPT/HCPCS: J3010

== ENCOUNTER 2017-06-08 21:01 | Emergency (ER) | payer OTHER ==
[~2017-06-08] VITALS: Ht 185.4 cm; Wt 123.2 kg
[~2017-06-08 21:01] MED LIST changes: -ACIDOPHILIS PO; -BEE-ZEE1 TAB PO; -BENTYL 20MG20 MG/TAB PO; -CIPRO 500MG TA500 MG PO; -FIBERCON PO; -FLAGYL500 MG PO; -K-TAB20 PO; -KERODEX 711 CRE TOP; -LOMOTIL 0.025 M1 TAB PO; -LYRICA 100MG C100 M1 PO; -MAALOX ADVANCE148 ML PO; -NAPROSYN 2250 MG/TAB PO; -NIZORAL SHAMPO120 M1 TP; -TESSALON P100 MG/CAP PO; -VALTREX 50500 MG/TAB PO; -[UNRECOGNIZED DRUG - OTHER]
[2017-06-08 21:07] VITALS: TEMP 98.2
[2017-06-08 21:30] LABS: BASO # 0.1 (0.0-0.2); BASO % 0.6 % (0.0-2.0); EOS # 0.3 (0.0-0.7); EOS % 3.4 % (0-4.0); GRAN % 66.8 % (42.2-75.2); HEMATOCRIT 45.1 % (42.0-52.0); HEMOGLOBIN 15.3 g/dl (13.5-18.0); LYMPH # 1.9 (1.2-3.4); LYMPH % 20.9 % (20.0-51.0); MEAN CELL VOLUME 93 fl (80.0-100.0); MEAN CORPUSCULAR HEMOGLOBIN 32 pg (27.0-31.0); MEAN CORPUSCULAR HGB CONC 34 g/dl (33.0-37.0); MEAN PLATELET VOLUME 10.6 fl (7.4-10.4); MONO # 0.7 (0.1-0.6); MONO % 7.9 % (1.7-9.3); PLATELET COUNT 236 K/mm3 (130-400); RED BLOOD COUNT 4.85 M/mm3 (4.20-5.60); REDCELL DISTRIBUTION WIDTH-CV 14.3 % (11.5-14.5)
[2017-06-08 21:42] LABS: ALANINE AMINOTRANSFERASE 19 U/L (21-72); ALBUMIN 4.1 gm/dL (3.5-5.0); ALKALINE PHOSPHATASE 85 U/L (50-136); ANION GAP 15 mmol/L (7-16); AST,SGOT 23 U/L (15-37); BILIRUBIN,TOTAL 0.5 mg/dL (0.0-1.0); BLOOD UREA NITROGEN 23 mg/dL (9-20); CALCIUM 9.1 mg/dL (8.4-10.2); CARBON DIOXIDE 23 mmol/L (22-30); CHLORIDE 105 mmol/L (98-107); GLUCOSE 141 mg/dL (74-106); LIPASE 246 U/L (23-300); SODIUM 143 mmol/L (137-145); TOTAL PROTEIN 7.8 gm/dL (6.4-8.2)
[2017-06-08 22:16] LABS: TROPONIN-I < 0.012 ng/mL (0.000-0.034)
[2017-06-08] MEDS ORDERED: MAALOX ADVANCE148 ML PO (23:02)
[2017-06-08] MEDS ORDERED: LIPITOR20 MG PO (23:03)
[2017-06-08] MEDS ORDERED: LOMOTIL 0.025 M1 TAB PO (23:05)
[2017-06-08] MEDS ORDERED: TESSALON P100 MG/CAP PO (23:06)
[2017-06-08] MEDS ORDERED: LIORESAL20 MG PO (23:06)
[2017-06-08] MEDS ORDERED: FIBERCON PO (23:07)
[2017-06-08] MEDS ORDERED: ZYRTEC 10MG10 MG PO (23:07)
[2017-06-08] MEDS ORDERED: VITAMIN D 1001000 IU PO (23:08)
[2017-06-08] MEDS ORDERED: BENTYL 20MG20 MG/TAB PO (23:09)
[2017-06-08] MEDS ORDERED: CIPRO 500MG TA500 MG PO (23:09)
[2017-06-08] MEDS ORDERED: JARDIANCE10 PO (23:22)
[2017-06-08] MEDS ORDERED: KERODEX 711 CRE TOP (23:23)
[2017-06-08] MEDS ORDERED: NIZORAL SHAMPO120 M1 TP (23:27)
[2017-06-08] MEDS ORDERED: ACIDOPHILIS PO (23:30)
[2017-06-08] MEDS ORDERED: FLAGYL500 MG PO ×2 (23:31)
[2017-06-08] MEDS ORDERED: BEE-ZEE1 TAB PO (23:35)
[2017-06-08] MEDS ORDERED: NAPROSYN 2250 MG/TAB PO (23:36)
[2017-06-08] MEDS ORDERED: K-TAB20 PO (23:38)
[2017-06-08] MEDS ORDERED: [UNRECOGNIZED DRUG - OTHER] (23:38)
[2017-06-08] MEDS ORDERED: LYRICA 100MG C100 M1 PO (23:39)
[2017-06-08] MEDS ORDERED: VALTREX 50500 MG/TAB PO (23:40)
[2017-06-08] MEDS ORDERED: BENADRYL50 MG PO (23:41)
[2017-06-09 01:00] VITALS: BP 119/92; PULSE 84
== END 2017-06-09 01:19 | disposition home or self-care (01) ==
LOC: COL.ER 21:01
PROVIDERS: Emergency Medicine
DX: R07.89 Other chest pain (principal); I10 Essential (primary) hypertension; E11.9 Type 2 diabetes mellitus without complications; E78.5 Hyperlipidemia, unspecified; E78.00 Pure hypercholesterolemia, unspecified; E66.01 Morbid (severe) obesity due to excess calories; Z98.890 Other specified postprocedural states; Z87.891 Personal history of nicotine dependence; Z79.82 Long term (current) use of aspirin; Z79.4 Long term (current) use of insulin
CPT/HCPCS: J2270; J2405

== ENCOUNTER → 2017-06-08 | Outpatient (CLI) | payer OTHER ==
[~2017-06-08] MED LIST changes: +ACIDOPHILIS PO; +BEE-ZEE1 TAB PO; +BENTYL 20MG20 MG/TAB PO; +CIPRO 500MG TA500 MG PO; +FIBERCON PO; +FLAGYL500 MG PO; +K-TAB20 PO; +KERODEX 711 CRE TOP; +LOMOTIL 0.025 M1 TAB PO; +LYRICA 100MG C100 M1 PO; +MAALOX ADVANCE148 ML PO; +NAPROSYN 2250 MG/TAB PO; +NIZORAL SHAMPO120 M1 TP; +QSYMIA 11.25 MG1 CER PO; -QSYMIA PO; +TESSALON P100 MG/CAP PO; +VALTREX 50500 MG/TAB PO; +[UNRECOGNIZED DRUG - OTHER]
== END ==
LOC: MHCPAIN 11:10
DX: G89.29 Other chronic pain (principal); M47.817 Spondylosis without myelopathy or radiculopathy, lumbosacral region; M54.16 Radiculopathy, lumbar region; M53.3 Sacrococcygeal disorders, not elsewhere classified; M96.1 Postlaminectomy syndrome, not elsewhere classified; M47.814 Spondylosis without myelopathy or radiculopathy, thoracic region
CPT/HCPCS: G0463

== ENCOUNTER → 2017-06-10 | Outpatient (CLI) | payer OTHER ==
[~2017-06-10] MED LIST changes: +ACIDOPHILIS PO; +BEE-ZEE1 TAB PO; +BENTYL 20MG20 MG/TAB PO; +CIPRO 500MG TA500 MG PO; +FIBERCON PO; +FLAGYL500 MG PO; +K-TAB20 PO; +KERODEX 711 CRE TOP; +LOMOTIL 0.025 M1 TAB PO; +LYRICA 100MG C100 M1 PO; +MAALOX ADVANCE148 ML PO; +NAPROSYN 2250 MG/TAB PO; +NIZORAL SHAMPO120 M1 TP; +TESSALON P100 MG/CAP PO; +VALTREX 50500 MG/TAB PO; +[UNRECOGNIZED DRUG - OTHER]
== END ==
LOC: MHCPAIN 10:28
DX: M47.817 Spondylosis without myelopathy or radiculopathy, lumbosacral region (principal)
CPT/HCPCS: J1040; J2250; J3010; Q9967

== ENCOUNTER 2017-06-22 07:00 | Observation (INO) | payer MEDICARE ==
[~2017-06-22] VITALS: Ht 185.4 cm; Wt 120.5 kg
[2017-06-22 08:07] LABS: BASO # 0.1 (0.0-0.2); BASO % 0.5 % (0.0-2.0); EOS # 0.3 (0.0-0.7); EOS % 2.6 % (0-4.0); GRAN # 9.1 (1.4-6.5); GRAN % 79.3 % (42.2-75.2); HEMATOCRIT 44.2 % (42.0-52.0); HEMOGLOBIN 14.9 g/dl (13.5-18.0); LYMPH # 1.5 (1.2-3.4); LYMPH % 12.6 % (20.0-51.0); MEAN CELL VOLUME 93 fl (80.0-100.0); MEAN CORPUSCULAR HEMOGLOBIN 31 pg (27.0-31.0); MEAN CORPUSCULAR HGB CONC 34 g/dl (33.0-37.0); MEAN PLATELET VOLUME 10.2 fl (7.4-10.4); MONO # 0.5 (0.1-0.6); MONO % 4.7 % (1.7-9.3); PLATELET COUNT 232 K/mm3 (130-400); RED BLOOD COUNT 4.77 M/mm3 (4.20-5.60); REDCELL DISTRIBUTION WIDTH-CV 13.8 % (11.5-14.5)
[2017-06-22 08:20] LABS: ALANINE AMINOTRANSFERASE 26 U/L (21-72); ALBUMIN 3.7 gm/dL (3.5-5.0); ALKALINE PHOSPHATASE 84 U/L (50-136); ANION GAP 15 mmol/L (7-16); AST,SGOT 19 U/L (15-37); BILIRUBIN,TOTAL 0.6 mg/dL (0.0-1.0); BLOOD UREA NITROGEN 18 mg/dL (9-20); C-REACTIVE PROTEIN < 0.5 mg/dL (0.0-0.9); CALCIUM 8.9 mg/dL (8.4-10.2); CARBON DIOXIDE 23 mmol/L (22-30); CHLORIDE 105 mmol/L (98-107); CREATININE, serum 0.77 mg/dL (0.66-1.25); GLUCOSE 145 mg/dL (74-106); LIPASE 282 U/L (23-300); POTASSIUM 3.7 mmol/L (3.4-5.0); SODIUM 143 mmol/L (137-145); TOTAL PROTEIN 7.1 gm/dL (6.4-8.2)
[2017-06-22 16:20] VITALS: BP 133/79; PULSE 72; TEMP 98.6
[2017-06-22 19:25] VITALS: BP 133/68; PULSE 65; TEMP 97.4
[2017-06-23 00:44] VITALS: BP 126/61; PULSE 64; TEMP 97.2
[2017-06-23 04:31] VITALS: BP 147/75; PULSE 63; TEMP 97.7
[2017-06-23 06:41] LABS: BASO % 0.5 % (0.0-2.0); EOS # 0.3 (0.0-0.7); EOS % 3.1 % (0-4.0); GRAN # 6.1 (1.4-6.5); HEMOGLOBIN 13.8 g/dl (13.5-18.0); LYMPH # 1.5 (1.2-3.4); LYMPH % 17.8 % (20.0-51.0); MEAN CELL VOLUME 96 fl (80.0-100.0); MEAN CORPUSCULAR HEMOGLOBIN 31 pg (27.0-31.0); MEAN CORPUSCULAR HGB CONC 33 g/dl (33.0-37.0); MEAN PLATELET VOLUME 10.4 fl (7.4-10.4); MONO # 0.5 (0.1-0.6); MONO % 6.4 % (1.7-9.3); PLATELET COUNT 203 K/mm3 (130-400); REDCELL DISTRIBUTION WIDTH-CV 14.1 % (11.5-14.5)
[2017-06-23 06:53] LABS: CREATININE, serum 0.69 mg/dL (0.66-1.25); POTASSIUM 3.9 mmol/L (3.4-5.0)
[2017-06-23 08:00] VITALS: BP 126/60; PULSE 65; TEMP 98.4
[2017-06-23] MEDS ORDERED: LEVAQUIN 750MG750 M1 PO (09:06)
[2017-06-23] MEDS ORDERED: FLAGYL500 MG PO (09:07)
[2017-06-23 11:57] VITALS: BP 112/50; PULSE 135; TEMP 98.4
== END 2017-06-23 15:47 | disposition home or self-care (01) ==
LOC: COL.ER 07:00 → MEDICAL 12:17
PROVIDERS: Emergency Medicine; Family Medicine
DX: R10.9 Unspecified abdominal pain (principal); K92.1 Melena; K65.4 Sclerosing mesenteritis; E11.9 Type 2 diabetes mellitus without complications; E78.5 Hyperlipidemia, unspecified; G89.29 Other chronic pain; M54.5 Low back pain; I10 Essential (primary) hypertension; N40.0 Benign prostatic hyperplasia without lower urinary tract symptoms; M10.9 Gout, unspecified; G47.33 Obstructive sleep apnea (adult) (pediatric); Z79.82 Long term (current) use of aspirin; Z79.4 Long term (current) use of insulin; Z96.653 Presence of artificial knee joint, bilateral; Z88.5 Allergy status to narcotic agent; Z88.0 Allergy status to penicillin; Z88.1 Allergy status to other antibiotic agents; Z88.8 Allergy status to other drugs, medicaments and biological substances; Z88.6 Allergy status to analgesic agent; Z87.891 Personal history of nicotine dependence; Z82.49 Family history of ischemic heart disease and other diseases of the circulatory system
CPT/HCPCS: G0378; J1630; J1650; J1815; J1956; J2270; J2405; J7030; Q9967

== ENCOUNTER → 2017-07-07 | Outpatient (CLI) | payer OTHER ==
[~2017-07-07] MED LIST changes: +LEVAQUIN 750MG750 M1 PO
== END ==
LOC: MHCPAIN 10:59
DX: G89.29 Other chronic pain (principal); M47.817 Spondylosis without myelopathy or radiculopathy, lumbosacral region; M54.16 Radiculopathy, lumbar region; M53.3 Sacrococcygeal disorders, not elsewhere classified; M96.1 Postlaminectomy syndrome, not elsewhere classified; M47.814 Spondylosis without myelopathy or radiculopathy, thoracic region
CPT/HCPCS: G0463

== ENCOUNTER 2017-08-29 11:14 | Emergency (ER) | payer OTHER ==
[~2017-08-29] VITALS: Ht 185.4 cm; Wt 120.5 kg
[2017-08-29 11:17] VITALS: TEMP 97.4
[2017-08-29 12:00] LABS: BASO # 0.1 (0.0-0.2); BASO % 0.7 % (0.0-2.0); EOS # 0.4 (0.0-0.7); EOS % 5.1 % (0-4.0); GRAN # 5.1 (1.4-6.5); GRAN % 69.2 % (42.2-75.2); HEMATOCRIT 42.3 % (42.0-52.0); HEMOGLOBIN 14.2 g/dl (13.5-18.0); LYMPH # 1.4 (1.2-3.4); LYMPH % 18.6 % (20.0-51.0); MEAN CELL VOLUME 93 fl (80.0-100.0); MEAN CORPUSCULAR HEMOGLOBIN 31 pg (27.0-31.0); MEAN CORPUSCULAR HGB CONC 34 g/dl (33.0-37.0); MEAN PLATELET VOLUME 10.3 fl (7.4-10.4); MONO # 0.5 (0.1-0.6); MONO % 6.1 % (1.7-9.3); PLATELET COUNT 250 K/mm3 (130-400); RED BLOOD COUNT 4.53 M/mm3 (4.20-5.60); REDCELL DISTRIBUTION WIDTH-CV 13.9 % (11.5-14.5)
[2017-08-29 12:06] LABS: ALANINE AMINOTRANSFERASE 21 U/L (21-72); ALBUMIN 3.9 gm/dL (3.5-5.0); ALKALINE PHOSPHATASE 97 U/L (50-136); ANION GAP 13 mmol/L (7-16); AST,SGOT 16 U/L (15-37); BILIRUBIN,TOTAL 0.8 mg/dL (0.0-1.0); BLOOD UREA NITROGEN 15 mg/dL (9-20); CALCIUM 8.8 mg/dL (8.4-10.2); CARBON DIOXIDE 22 mmol/L (22-30); CHLORIDE 105 mmol/L (98-107); CREATININE, serum 0.84 mg/dL (0.66-1.25); GLUCOSE 95 mg/dL (74-106); LIPASE 92 U/L (23-300); POTASSIUM 3.9 mmol/L (3.4-5.0); SODIUM 140 mmol/L (137-145); TOTAL PROTEIN 6.9 gm/dL (6.4-8.2)
[2017-08-29 12:18] LABS: TROPONIN-I < 0.012 ng/mL (0.000-0.034)
[2017-08-29 15:01] VITALS: BP 111/77; PULSE 73
== END 2017-08-29 15:01 | disposition home or self-care (01) ==
LOC: COL.ER 11:14
PROVIDERS: Emergency Medicine
DX: G89.29 Other chronic pain (principal); R07.89 Other chest pain; E11.9 Type 2 diabetes mellitus without complications; I10 Essential (primary) hypertension; K21.9 Gastro-esophageal reflux disease without esophagitis; Z98.890 Other specified postprocedural states; Z79.82 Long term (current) use of aspirin; Z79.84 Long term (current) use of oral hypoglycemic drugs
CPT/HCPCS: J2270; J2405

== ENCOUNTER 2017-09-23 16:34 | Emergency (ER) | payer OTHER ==
[~2017-09-23] VITALS: Ht 185.4 cm; Wt 113.6 kg
[2017-09-23 16:41] VITALS: TEMP 98.4
[2017-09-23 17:01] LABS: BASO % 0.4 % (0.0-2.0); EOS # 0.2 (0.0-0.7); EOS % 1.6 % (0-4.0); GRAN # 7.7 (1.4-6.5); GRAN % 74.1 % (42.2-75.2); HEMATOCRIT 46.9 % (42.0-52.0); HEMOGLOBIN 15.7 g/dl (13.5-18.0); LYMPH # 1.7 (1.2-3.4); LYMPH % 16.6 % (20.0-51.0); MEAN CELL VOLUME 94 fl (80.0-100.0); MEAN CORPUSCULAR HEMOGLOBIN 32 pg (27.0-31.0); MEAN CORPUSCULAR HGB CONC 34 g/dl (33.0-37.0); MEAN PLATELET VOLUME 10.6 fl (7.4-10.4); MONO # 0.7 (0.1-0.6); PLATELET COUNT 245 K/mm3 (130-400); RED BLOOD COUNT 4.98 M/mm3 (4.20-5.60); REDCELL DISTRIBUTION WIDTH-CV 14.1 % (11.5-14.5)
[2017-09-23 17:07] LABS: PROTHROMBIN TIME 11.7 SECONDS (9.7-12.8)
[2017-09-23 17:10] LABS: ALANINE AMINOTRANSFERASE 23 U/L (21-72); ALBUMIN 4.4 gm/dL (3.5-5.0); ALKALINE PHOSPHATASE 95 U/L (50-136); ANION GAP 15 mmol/L (7-16); AST,SGOT 19 U/L (15-37); BILIRUBIN,TOTAL 1.2 mg/dL (0.0-1.0); BLOOD UREA NITROGEN 18 mg/dL (9-20); CALCIUM 9.2 mg/dL (8.4-10.2); CARBON DIOXIDE 21 mmol/L (22-30); CHLORIDE 104 mmol/L (98-107); CREATININE, serum 0.91 mg/dL (0.66-1.25); GLUCOSE 126 mg/dL (74-106); POTASSIUM 3.7 mmol/L (3.4-5.0); SODIUM 141 mmol/L (137-145); TOTAL PROTEIN 7.9 gm/dL (6.4-8.2)
[2017-09-23 17:12] LABS: D-DIMER < 200.00 ng/mLDDu (200-230)
[2017-09-23] MEDS ORDERED: JARDIANCE25 PO (17:16)
[2017-09-23 17:22] LABS: TROPONIN-I < 0.012 ng/mL (0.000-0.034)
[2017-09-23 20:05] VITALS: BP 131/89; PULSE 81
== END 2017-09-23 20:05 | disposition home or self-care (01) ==
LOC: COL.ER 16:34
PROVIDERS: Emergency Medicine
DX: R07.89 Other chest pain (principal); E11.9 Type 2 diabetes mellitus without complications; I10 Essential (primary) hypertension; E78.5 Hyperlipidemia, unspecified; G89.29 Other chronic pain; M54.9 Dorsalgia, unspecified; Z82.49 Family history of ischemic heart disease and other diseases of the circulatory system; Z96.653 Presence of artificial knee joint, bilateral; Z90.89 Acquired absence of other organs; Z98.890 Other specified postprocedural states; Z79.82 Long term (current) use of aspirin; Z79.84 Long term (current) use of oral hypoglycemic drugs; X58.XXXA Exposure to other specified factors, initial encounter; Y92.096 Garden or yard of other non-institutional residence as the place of occurrence of the external cause
CPT/HCPCS: J2270

== ENCOUNTER → 2017-10-12 | Outpatient (CLI) | payer OTHER ==
[~2017-10-12] MED LIST changes: +JARDIANCE25 PO
== END ==
LOC: MHCPAIN 10:53
DX: G89.29 Other chronic pain (principal); M47.817 Spondylosis without myelopathy or radiculopathy, lumbosacral region; M54.16 Radiculopathy, lumbar region; M53.3 Sacrococcygeal disorders, not elsewhere classified; M47.814 Spondylosis without myelopathy or radiculopathy, thoracic region
CPT/HCPCS: G0463

== ENCOUNTER 2017-10-19 19:00 | Emergency (ER) | payer OTHER ==
[~2017-10-19] VITALS: Ht 185.4 cm; Wt 113.6 kg
[2017-10-19 19:04] VITALS: TEMP 97.6
[2017-10-19 19:29] LABS: BASO # 0.1 (0.0-0.2); BASO % 0.6 % (0.0-2.0); EOS # 0.2 (0.0-0.7); EOS % 2.4 % (0-4.0); GRAN # 5.8 (1.4-6.5); GRAN % 68.6 % (42.2-75.2); HEMATOCRIT 47.7 % (42.0-52.0); HEMOGLOBIN 15.7 g/dl (13.5-18.0); LYMPH # 1.8 (1.2-3.4); LYMPH % 20.8 % (20.0-51.0); MEAN CELL VOLUME 97 fl (80.0-100.0); MEAN CORPUSCULAR HEMOGLOBIN 32 pg (27.0-31.0); MEAN CORPUSCULAR HGB CONC 33 g/dl (33.0-37.0); MEAN PLATELET VOLUME 11.4 fl (7.4-10.4); MONO # 0.6 (0.1-0.6); MONO % 7.2 % (1.7-9.3); PLATELET COUNT 230 K/mm3 (130-400); RED BLOOD COUNT 4.92 M/mm3 (4.20-5.60); REDCELL DISTRIBUTION WIDTH-CV 14.2 % (11.5-14.5)
[2017-10-19 19:45] LABS: ALANINE AMINOTRANSFERASE 22 U/L (21-72); ALBUMIN 4.3 gm/dL (3.5-5.0); ALKALINE PHOSPHATASE 85 U/L (50-136); ANION GAP 15 mmol/L (7-16); AST,SGOT 17 U/L (15-37); BLOOD UREA NITROGEN 15 mg/dL (9-20); CARBON DIOXIDE 21 mmol/L (22-30); CHLORIDE 104 mmol/L (98-107); CREATINE KINASE 35 U/L (55-170); CREATININE, serum 0.72 mg/dL (0.66-1.25); GLUCOSE 84 mg/dL (74-106); LIPASE 189 U/L (23-300); POTASSIUM 3.8 mmol/L (3.4-5.0); SODIUM 140 mmol/L (137-145); TOTAL PROTEIN 7.7 gm/dL (6.4-8.2)
[2017-10-19 20:04] LABS: TROPONIN-I < 0.012 ng/mL (0.000-0.034)
[2017-10-19 20:30] VITALS: BP 122/77; PULSE 77
== END 2017-10-19 20:30 | disposition home or self-care (01) ==
LOC: COL.ER 19:00
PROVIDERS: Emergency Medicine
DX: R07.9 Chest pain, unspecified (principal); M54.9 Dorsalgia, unspecified; G89.29 Other chronic pain; I10 Essential (primary) hypertension; E11.9 Type 2 diabetes mellitus without complications; E78.5 Hyperlipidemia, unspecified; I25.10 Atherosclerotic heart disease of native coronary artery without angina pectoris; Z95.9 Presence of cardiac and vascular implant and graft, unspecified; Z90.49 Acquired absence of other specified parts of digestive tract; Z90.89 Acquired absence of other organs; Z79.82 Long term (current) use of aspirin; Z87.891 Personal history of nicotine dependence; Z79.84 Long term (current) use of oral hypoglycemic drugs
CPT/HCPCS: J2270; J2405

== ENCOUNTER → 2017-11-04 | Outpatient (CLI) | payer OTHER | LOC: MHCPAIN 08:42 | DX: M47.817 Spondylosis without myelopathy or radiculopathy, lumbosacral region (principal); M54.16 Radiculopathy, lumbar region | CPT/HCPCS: J1040; J2250; J3010; Q9967 ==

== ENCOUNTER 2017-12-19 20:35 | Emergency (ER) | payer OTHER ==
[~2017-12-19] VITALS: Ht 185.4 cm; Wt 105.5 kg
[2017-12-19 20:38] VITALS: TEMP 97.9
[2017-12-19 21:17] LABS: BASO % 0.4 % (0.0-2.0); EOS # 0.3 (0.0-0.7); EOS % 3.1 % (0-4.0); GRAN # 6.8 (1.4-6.5); GRAN % 72.9 % (42.2-75.2); HEMATOCRIT 45.1 % (42.0-52.0); HEMOGLOBIN 15.3 g/dl (13.5-18.0); LYMPH # 1.6 (1.2-3.4); LYMPH % 17.3 % (20.0-51.0); MEAN CELL VOLUME 93 fl (80.0-100.0); MEAN CORPUSCULAR HEMOGLOBIN 32 pg (27.0-31.0); MEAN CORPUSCULAR HGB CONC 34 g/dl (33.0-37.0); MEAN PLATELET VOLUME 10.1 fl (7.4-10.4); MONO # 0.6 (0.1-0.6); MONO % 6.1 % (1.7-9.3); PLATELET COUNT 238 K/mm3 (130-400); RED BLOOD COUNT 4.83 M/mm3 (4.20-5.60); REDCELL DISTRIBUTION WIDTH-CV 13.8 % (11.5-14.5)
[2017-12-19 21:35] LABS: ALBUMIN 4.1 gm/dL (3.5-5.0); CALCIUM 8.8 mg/dL (8.4-10.2); CREATININE, serum 0.72 mg/dL (0.66-1.25); POTASSIUM 3.5 mmol/L (3.4-5.0)
[2017-12-19 22:48] VITALS: BP 147/75; PULSE 92
== END 2017-12-19 22:48 | disposition home or self-care (01) ==
LOC: COL.ER 20:35
PROVIDERS: Emergency Medicine
DX: R07.89 Other chest pain (principal); I10 Essential (primary) hypertension; Z79.82 Long term (current) use of aspirin; Z79.84 Long term (current) use of oral hypoglycemic drugs
CPT/HCPCS: J0780; J3010

== ENCOUNTER → 2018-01-03 | Outpatient (CLI) | payer OTHER | LOC: MHCPAIN 10:15 | DX: G89.29 Other chronic pain (principal); M47.817 Spondylosis without myelopathy or radiculopathy, lumbosacral region; M54.16 Radiculopathy, lumbar region; M53.3 Sacrococcygeal disorders, not elsewhere classified | CPT/HCPCS: G0463 ==

== ENCOUNTER → 2018-01-13 | Outpatient (CLI) | payer OTHER | LOC: MHCPAIN 07:32 | DX: M47.817 Spondylosis without myelopathy or radiculopathy, lumbosacral region (principal); M54.16 Radiculopathy, lumbar region | CPT/HCPCS: J1040; J2250; J3010; Q9967 ==

== ENCOUNTER → 2018-02-01 | Outpatient (CLI) | payer OTHER ==
[2018-02-01 11:47] LABS: HEMOGLOBIN 15.4 g/dl (13.5-18.0); MEAN CELL VOLUME 96 fl (80.0-100.0); MEAN CORPUSCULAR HEMOGLOBIN 32 pg (27.0-31.0); MEAN CORPUSCULAR HGB CONC 34 g/dl (33.0-37.0); MEAN PLATELET VOLUME 11.2 fl (7.4-10.4); PLATELET COUNT 200 K/mm3 (130-400); RED BLOOD COUNT 4.81 M/mm3 (4.20-5.60); REDCELL DISTRIBUTION WIDTH-CV 13.7 % (11.5-14.5)
[2018-02-01 12:22] LABS: ERYTHROCYTE SEDIMENTATION RATE 4 mm/hr (0-30)
== END ==
LOC: COL.LAB 10:50
PROVIDERS: Orthopaedic Surgery
DX: M25.562 Pain in left knee (principal); M25.561 Pain in right knee; Z96.653 Presence of artificial knee joint, bilateral

== ENCOUNTER 2018-03-02 21:41 | Emergency (ER) | payer OTHER ==
[~2018-03-02] VITALS: Ht 185.4 cm; Wt 102.7 kg
[2018-03-02] MEDS ORDERED: JARDIANCE25 (22:04)
[2018-03-02] MEDS ORDERED: TRULICITY1.5 MG/0.5 SQ (22:10)
[2018-03-02 23:00] VITALS: BP 130/72; PULSE 83; TEMP 97.3
== END 2018-03-02 23:05 | disposition home or self-care (01) ==
LOC: COL.ER 21:41
DX: M54.5 Low back pain (principal); Z79.82 Long term (current) use of aspirin; Z98.890 Other specified postprocedural states; Z79.84 Long term (current) use of oral hypoglycemic drugs
CPT/HCPCS: J2300

== ENCOUNTER 2018-03-19 19:54 | Emergency (ER) | payer OTHER ==
[~2018-03-19] VITALS: Ht 185.4 cm; Wt 100.9 kg
[~2018-03-19 19:54] MED LIST changes: +JARDIANCE25; +TRULICITY1.5 MG/0.5 SQ
[2018-03-19 19:57] VITALS: TEMP 97.1
[2018-03-19] MEDS ORDERED: BENADRYL50 MG PO (20:10)
[2018-03-19] MEDS ORDERED: GLUCOPHAGE1000 MG PO (20:13)
[2018-03-19 20:49] LABS: BASO # 0.1 (0.0-0.2); BASO % 0.8 % (0.0-2.0); EOS # 0.2 (0.0-0.7); GRAN # 5.1 (1.4-6.5); GRAN % 67.5 % (42.2-75.2); HEMATOCRIT 44.9 % (42.0-52.0); LYMPH # 1.6 (1.2-3.4); LYMPH % 21.3 % (20.0-51.0); MEAN CELL VOLUME 96 fl (80.0-100.0); MEAN CORPUSCULAR HEMOGLOBIN 32 pg (27.0-31.0); MEAN CORPUSCULAR HGB CONC 33 g/dl (33.0-37.0); MEAN PLATELET VOLUME 10.5 fl (7.4-10.4); MONO # 0.6 (0.1-0.6); MONO % 8.1 % (1.7-9.3); PLATELET COUNT 245 K/mm3 (130-400); REDCELL DISTRIBUTION WIDTH-CV 13.1 % (11.5-14.5)
[2018-03-19 21:06] LABS: ALANINE AMINOTRANSFERASE < 6 U/L (21-72); ALBUMIN 3.9 gm/dL (3.5-5.0); ALKALINE PHOSPHATASE 96 U/L (50-136); ANION GAP 9 mmol/L (7-16); AST,SGOT 35 U/L (15-37); BILIRUBIN,TOTAL 1.4 mg/dL (0.0-1.0); BLOOD UREA NITROGEN 18 mg/dL (9-20); CALCIUM 9.1 mg/dL (8.4-10.2); CARBON DIOXIDE 23 mmol/L (22-30); CHLORIDE 107 mmol/L (98-107); CREATININE, serum 0.81 mg/dL (0.66-1.25); GLUCOSE 89 mg/dL (74-106); LIPASE 89 U/L (23-300); POTASSIUM 3.9 mmol/L (3.4-5.0); SODIUM 139 mmol/L (137-145); TOTAL PROTEIN 7.1 gm/dL (6.4-8.2)
[2018-03-19 21:07] LABS: C-REACTIVE PROTEIN < 0.5 mg/dL (0.0-0.9)
[2018-03-19 21:15] LABS: TROPONIN-I < 0.012 ng/mL (0.000-0.035)
[2018-03-19 22:10] LABS: COLLECTION METHOD CLEAN CATCH
[2018-03-19 22:16] LABS: MUCOUS Present /lpf; PH 5 (5-8); SQUAMOUS EPITHELIAL None Seen /hpf; URINE APPEARANCE Clear; URINE BACTERIA Rare /hpf; URINE BILIRUBIN Negative (NEGATIVE); URINE BLOOD 1+ (NEGATIVE); URINE COLOR Yellow; URINE GLUCOSE 3+ (NEGATIVE); URINE KETONE Negative (NEGATIVE); URINE LEUKOCYTE ESTERASE Negative (NEGATIVE); URINE NITRATE Negative (NEGATIVE); URINE PROTEIN(semi-quant) Negative (NEGATIVE); URINE RBC 0-2 /hpf; URINE UROBILINOGEN Negative (NEGATIVE)
[2018-03-19 23:01] VITALS: BP 112/80; PULSE 74
== END 2018-03-19 23:22 | disposition home or self-care (01) ==
LOC: COL.ER 19:54
PROVIDERS: Emergency Medicine
DX: M54.5 Low back pain (principal); I10 Essential (primary) hypertension; E11.9 Type 2 diabetes mellitus without complications; Z87.442 Personal history of urinary calculi; E78.00 Pure hypercholesterolemia, unspecified; Z79.82 Long term (current) use of aspirin; Z79.84 Long term (current) use of oral hypoglycemic drugs
CPT/HCPCS: J2270; J2405; J7030; Q9967

== ENCOUNTER 2018-04-26 01:32 | Emergency (ER) | payer OTHER ==
[~2018-04-26] VITALS: Ht 185.4 cm; Wt 100.5 kg
[~2018-04-26 01:32] MED LIST changes: +GLUCOPHAGE1000 MG PO
[2018-04-26 01:42] VITALS: TEMP 98.4
[2018-04-26 02:15] LABS: COLLECTION METHOD CLEAN CATCH
[2018-04-26 02:20] LABS: MUCOUS Present /lpf; PH 6 (5-8); SQUAMOUS EPITHELIAL None Seen /hpf; URINE APPEARANCE Clear; URINE BACTERIA Rare /hpf; URINE BILIRUBIN Negative (NEGATIVE); URINE BLOOD Negative (NEGATIVE); URINE COLOR Yellow; URINE GLUCOSE 3+ (NEGATIVE); URINE KETONE Negative (NEGATIVE); URINE LEUKOCYTE ESTERASE Negative (NEGATIVE); URINE NITRATE Negative (NEGATIVE); URINE PROTEIN(semi-quant) Negative (NEGATIVE); URINE RBC 0-2 /hpf; URINE UROBILINOGEN Negative (NEGATIVE)
[2018-04-26 02:40] LABS: BASO # 0.1 (0.0-0.2); BASO % 0.6 % (0.0-2.0); EOS # 0.2 (0.0-0.7); EOS % 2.5 % (0-4.0); GRAN # 5.4 (1.4-6.5); GRAN % 66.5 % (42.2-75.2); HEMATOCRIT 42.8 % (42.0-52.0); HEMOGLOBIN 14.4 g/dl (13.5-18.0); LYMPH # 1.8 (1.2-3.4); LYMPH % 22.2 % (20.0-51.0); MEAN CELL VOLUME 95 fl (80.0-100.0); MEAN CORPUSCULAR HEMOGLOBIN 32 pg (27.0-31.0); MEAN CORPUSCULAR HGB CONC 34 g/dl (33.0-37.0); MEAN PLATELET VOLUME 10.4 fl (7.4-10.4); MONO # 0.6 (0.1-0.6); MONO % 7.8 % (1.7-9.3); PLATELET COUNT 234 K/mm3 (130-400); RED BLOOD COUNT 4.53 M/mm3 (4.20-5.60); REDCELL DISTRIBUTION WIDTH-CV 13.4 % (11.5-14.5)
[2018-04-26 02:50] LABS: ALBUMIN 3.7 gm/dL (3.5-5.0); BILIRUBIN,TOTAL 0.8 mg/dL (0.0-1.0); CALCIUM 8.8 mg/dL (8.4-10.2); CREATININE, serum 1.04 mg/dL (0.66-1.25); POTASSIUM 3.3 mmol/L (3.4-5.0); TOTAL PROTEIN 6.6 gm/dL (6.4-8.2)
[2018-04-26] MEDS ORDERED: OMNICEF 300MG300 MG PO (05:19)
[2018-04-26 05:31] VITALS: BP 129/69; PULSE 76
== END 2018-04-26 05:40 | disposition home or self-care (01) ==
LOC: COL.ER 01:32
PROVIDERS: Emergency Medicine
DX: N50.82 Scrotal pain (principal); I10 Essential (primary) hypertension; E11.9 Type 2 diabetes mellitus without complications; Z79.82 Long term (current) use of aspirin
CPT/HCPCS: J2270

== ENCOUNTER 2018-05-08 15:11 | Observation (INO) | payer OTHER ==
[~2018-05-08] VITALS: Ht 185.4 cm; Wt 100.0 kg
[~2018-05-08 15:11] MED LIST changes: +OMNICEF 300MG300 MG PO
[2018-05-08 15:52] LABS: BASO # 0.1 (0.0-0.2); BASO % 0.6 % (0.0-2.0); EOS # 0.2 (0.0-0.7); GRAN # 5.7 (1.4-6.5); GRAN % 70.2 % (42.2-75.2); HEMATOCRIT 47.7 % (42.0-52.0); HEMOGLOBIN 16.1 g/dl (13.5-18.0); LYMPH # 1.6 (1.2-3.4); MEAN CELL VOLUME 95 fl (80.0-100.0); MEAN CORPUSCULAR HEMOGLOBIN 32 pg (27.0-31.0); MEAN CORPUSCULAR HGB CONC 34 g/dl (33.0-37.0); MEAN PLATELET VOLUME 10.4 fl (7.4-10.4); MONO # 0.7 (0.1-0.6); PLATELET COUNT 245 K/mm3 (130-400); RED BLOOD COUNT 5.02 M/mm3 (4.20-5.60); REDCELL DISTRIBUTION WIDTH-CV 13.4 % (11.5-14.5)
[2018-05-08 15:58] VITALS: BP 91/68; PULSE 92
[2018-05-08 16:07] LABS: ALANINE AMINOTRANSFERASE 8 U/L (21-72); ALBUMIN 4.1 gm/dL (3.5-5.0); ALKALINE PHOSPHATASE 109 U/L (50-136); ANION GAP 10 mmol/L (7-16); AST,SGOT 22 U/L (15-37); BLOOD UREA NITROGEN 18 mg/dL (9-20); CARBON DIOXIDE 22 mmol/L (22-30); CHLORIDE 107 mmol/L (98-107); CREATININE, serum 0.86 mg/dL (0.66-1.25); GLUCOSE 136 mg/dL (74-106); POTASSIUM 4.1 mmol/L (3.4-5.0); SODIUM 139 mmol/L (137-145); TOTAL PROTEIN 7.5 gm/dL (6.4-8.2)
[2018-05-08 16:13] LABS: C-REACTIVE PROTEIN < 0.5 mg/dL (0.0-0.9)
[2018-05-08 16:17] LABS: ERYTHROCYTE SEDIMENTATION RATE 4 mm/hr (0-30); TROPONIN-I < 0.012 ng/mL (0.000-0.035)
[2018-05-08] MEDS ORDERED: VITAMIN C500 MG PO (17:29)
[2018-05-08] MEDS ORDERED: BENADRYL50 MG PO (17:30)
[2018-05-08] MEDS ORDERED: ZYRTEC 10MG10 MG PO (17:30)
[2018-05-08] MEDS ORDERED: JARDIANCE25 PO (17:31)
[2018-05-08] MEDS ORDERED: FERRO-TIME325 MG PO ×2 (17:31→23:16)
[2018-05-08] MEDS ORDERED: FOLIC ACID0.4 MG PO (17:32)
[2018-05-08] MEDS ORDERED: IMDUR 30MG30 MG/TAB PO (17:32)
[2018-05-08] MEDS ORDERED: GLUCOPHAGE500 MG/TAB PO (17:33)
[2018-05-08] MEDS ORDERED: NAPROSYN 2250 MG/TAB PO (17:34)
[2018-05-08] MEDS ORDERED: LYRICA 150MG C150 MG PO (17:35)
[2018-05-08] MEDS ORDERED: OZEMPIC1 MG/0.75 SQ (17:36)
[2018-05-08] MEDS ORDERED: PROBIOTIC GOLD1 EACH PO (17:37)
[2018-05-08] MEDS ORDERED: VALTREX 50500 MG/TAB PO (17:38)
[2018-05-08] MEDS ORDERED: LIPITOR 10MG10 MG PO (17:39)
[2018-05-08 18:43] VITALS: BP 105/64; PULSE 66; TEMP 97.5
[2018-05-08 19:55] VITALS: BP 99/53; PULSE 73; TEMP 97.4
--- NOTE | 2018-05-08 22:02 | NUR ---
Pt resting in bed watching TV, some C/O pain, shift assessment complete, left Pt call light in reach, bed in lowest position.
[2018-05-09 00:06] VITALS: BP 103/57; PULSE 75; TEMP 97.5
--- NOTE | 2018-05-09 04:25 | NUR ---
Luz Maria has C/O pain in his back that the current medication regimen is not providing adequate pain relief, recommended that Pt try a heating pad (K-Pad) Placed a K-Pad behind his back and will follow up to check if relief provided.
[2018-05-09 04:57] VITALS: BP 109/54; PULSE 64; TEMP 97.7
--- NOTE | 2018-05-09 05:23 | NUR ---
Pt resting in bed, he did not sleep during the night, he does have C/O pain in his back and has been receiving PRN pain medications on a regular basis Q4H, Pt states that the dosage is inadequate for pain relief, added a heating pad to his back to help relieve the pain located there.
[2018-05-09 07:09] VITALS: BP 120/62; PULSE 70; TEMP 97.6
[2018-05-09 07:19] VITALS: BP 122/68; PULSE 63
[2018-05-09 07:20] VITALS: BP 123/67; PULSE 74
--- NOTE | 2018-05-09 08:06 | NUR ---
Assessment completed, alert/oriented, vital signs stable, patient denies any further dizziness or feeling lightheaded, nausea is resolved and patient is taking PO intake well and without and problems, orthostatic VS check and are negative for changes, he is requesting pain meds for his chronic back pain/ I have given his scheduled Lyrica and explained we can discuss other options with the physician today, I have recommended position change as he reports our bed are very uncomfortable, heart RRR/ distal pulses are palapble, lungs CTA/ no resp.difficulty noted, IVF infusing at 125/hr, fsbs WNL, he has ordered his breakfast, denies other needs at this time
[2018-05-09] MEDS ORDERED: NITROSTAT0.4 MG/TAB SL (10:48)
[2018-05-09 11:09] VITALS: BP 128/68; PULSE 73; TEMP 97.3
--- NOTE | 2018-05-09 12:00 | NUR ---
SW met with patient after clinical rounds to discuss discharge plans. Patient will discharge home today. Patient lives independently at home with his son. Patient receives primary care though the [facility] and he obtains prescriptions from [facility]. Patient does not use any home health services and does not currently use DME but has a walker if needed. Patient does have a DPOA in EMR. SW does not anticipate any discharge needs.
--- NOTE | 2018-05-09 12:03 | NUR ---
Discharge orders reviewed with the patient, [facility] as he already has scheduled for tommorow 05/10/18, instructed to stop Imdur for now and we provided script fro [facility] to use PRN untill he is able to follow up with his primary physicians, IV and tele removed, he is ambulatory and leaving with a friend, i escorted them out the door
== END 2018-05-09 12:07 | disposition home or self-care (01) ==
LOC: COL.ER 15:11 → MEDICAL 17:23
PROVIDERS: Emergency Medicine; ADMIT Family Medicine
DX: R55 Syncope and collapse (principal); N40.1 Benign prostatic hyperplasia with lower urinary tract symptoms; M10.9 Gout, unspecified; Z86.73 Personal history of transient ischemic attack (TIA), and cerebral infarction without residual deficits; E66.9 Obesity, unspecified; E78.5 Hyperlipidemia, unspecified; E11.42 Type 2 diabetes mellitus with diabetic polyneuropathy; G89.29 Other chronic pain; M54.9 Dorsalgia, unspecified; I95.9 Hypotension, unspecified; Z79.82 Long term (current) use of aspirin; I10 Essential (primary) hypertension; K21.9 Gastro-esophageal reflux disease without esophagitis; K58.9 Irritable bowel syndrome, unspecified; Z96.653 Presence of artificial knee joint, bilateral; Z87.891 Personal history of nicotine dependence; Z83.3 Family history of diabetes mellitus; Z88.5 Allergy status to narcotic agent; Z88.0 Allergy status to penicillin; Z88.1 Allergy status to other antibiotic agents; Z88.6 Allergy status to analgesic agent; Z88.2 Allergy status to sulfonamides
CPT/HCPCS: G0378; J1650; J2060; J2270; J2405; J3010; J7030

== ENCOUNTER 2018-06-05 12:16 | Emergency (ER) | payer OTHER ==
[~2018-06-05] VITALS: Ht 185.4 cm; Wt 101.4 kg
[~2018-06-05 12:16] MED LIST changes: +FERRO-TIME325 MG PO; +FOLIC ACID0.4 MG PO; +LYRICA 150MG C150 MG PO; +NITROSTAT0.4 MG/TAB SL; +OZEMPIC1 MG/0.75 SQ; +PROBIOTIC GOLD1 EACH PO
[2018-06-05 12:22] VITALS: TEMP 98.9
[2018-06-05 12:56] LABS: BASO # 0.1 (0.0-0.2); BASO % 0.6 % (0.0-2.0); EOS # 0.2 (0.0-0.7); EOS % 1.9 % (0-4.0); GRAN # 5.8 (1.4-6.5); GRAN % 72.2 % (42.2-75.2); HEMATOCRIT 47.7 % (42.0-52.0); LYMPH # 1.5 (1.2-3.4); LYMPH % 18.1 % (20.0-51.0); MEAN CELL VOLUME 95 fl (80.0-100.0); MEAN CORPUSCULAR HEMOGLOBIN 32 pg (27.0-31.0); MEAN CORPUSCULAR HGB CONC 34 g/dl (33.0-37.0); MEAN PLATELET VOLUME 10.3 fl (7.4-10.4); MONO # 0.6 (0.1-0.6); MONO % 6.8 % (1.7-9.3); PLATELET COUNT 234 K/mm3 (130-400); RED BLOOD COUNT 5.03 M/mm3 (4.20-5.60); REDCELL DISTRIBUTION WIDTH-CV 13.1 % (11.5-14.5)
[2018-06-05 13:10] LABS: ALANINE AMINOTRANSFERASE 7 U/L (21-72); ALBUMIN 4.3 gm/dL (3.5-5.0); ALKALINE PHOSPHATASE 108 U/L (50-136); ANION GAP 10 mmol/L (7-16); AST,SGOT 16 U/L (15-37); BILIRUBIN,TOTAL 1.2 mg/dL (0.0-1.0); BLOOD UREA NITROGEN 21 mg/dL (9-20); CALCIUM 9.3 mg/dL (8.4-10.2); CARBON DIOXIDE 21 mmol/L (22-30); CHLORIDE 108 mmol/L (98-107); CREATININE, serum 0.89 (0.66-1.25); GLUCOSE 104 mg/dL (74-106); LIPASE 171 U/L (23-300); POTASSIUM 3.7 mmol/L (3.4-5.0); SODIUM 139 mmol/L (137-145); TOTAL PROTEIN 7.6 gm/dL (6.4-8.2)
[2018-06-05 13:15] LABS: C-REACTIVE PROTEIN < 0.5 mg/dL (0.0-0.9)
[2018-06-05 15:18] LABS: COLLECTION METHOD CLEAN CATCH
[2018-06-05 15:32] LABS: MUCOUS Present /lpf; PH 6 (5-8); SQUAMOUS EPITHELIAL 0-2 /hpf; URINE APPEARANCE Clear; URINE BACTERIA None Seen /hpf; URINE BILIRUBIN Negative (NEGATIVE); URINE BLOOD Negative (NEGATIVE); URINE COLOR Yellow; URINE GLUCOSE 3+ (NEGATIVE); URINE KETONE Negative (NEGATIVE); URINE LEUKOCYTE ESTERASE Negative (NEGATIVE); URINE NITRATE Negative (NEGATIVE); URINE PROTEIN(semi-quant) Negative (NEGATIVE); URINE RBC 0-2 /hpf; URINE UROBILINOGEN Negative (NEGATIVE)
[2018-06-05] MEDS ORDERED: FIRVANQ25 MG/1 ML PO ×3 (15:48→16:04)
[2018-06-05 16:00] VITALS: BP 127/68; PULSE 71
== END 2018-06-05 16:38 | disposition home or self-care (01) ==
LOC: COL.ER 12:16
PROVIDERS: Family Medicine
DX: A04.72 Enterocolitis due to Clostridium difficile, not specified as recurrent (principal); E11.9 Type 2 diabetes mellitus without complications; I10 Essential (primary) hypertension; Z79.82 Long term (current) use of aspirin
CPT/HCPCS: J2270; J2405; J7030; J7120

== ENCOUNTER 2018-06-18 20:17 | Emergency (ER) | payer OTHER ==
[~2018-06-18] VITALS: Ht 185.4 cm; Wt 102.3 kg
[~2018-06-18 20:17] MED LIST changes: +FIRVANQ25 MG/1 ML PO
[2018-06-18 20:27] VITALS: BP 133/69; TEMP 96.9
[2018-06-18] MEDS ORDERED: OMNICEF 300MG300 MG PO (21:12)
[2018-06-18 21:58] VITALS: PULSE 94
== END 2018-06-18 21:35 | disposition home or self-care (01) ==
LOC: COL.ER 20:17
DX: L03.031 Cellulitis of right toe (principal); E11.9 Type 2 diabetes mellitus without complications; Z79.82 Long term (current) use of aspirin

== ENCOUNTER 2018-06-19 22:37 | Emergency (ER) | payer OTHER ==
[~2018-06-19] VITALS: Ht 185.4 cm; Wt 102.3 kg
[2018-06-19 23:21] VITALS: TEMP 99.7
[2018-06-20] MEDS ORDERED: MOBIC 7.5MG7.5 MG PO (05:29)
[2018-06-20] MEDS ORDERED: FLEXERIL 1010 MG/TAB PO (05:29)
[2018-06-20] MEDS ORDERED: MS CONTIN 115 MG/TAB PO (05:29)
[2018-06-20 06:01] VITALS: BP 114/69; PULSE 64
== END 2018-06-20 06:01 | disposition home or self-care (01) ==
LOC: COL.ER 22:37
DX: M54.42 Lumbago with sciatica, left side (principal); E78.5 Hyperlipidemia, unspecified; E66.9 Obesity, unspecified; M10.9 Gout, unspecified; Z68.29 Body mass index [BMI] 29.0-29.9, adult; Z86.73 Personal history of transient ischemic attack (TIA), and cerebral infarction without residual deficits
CPT/HCPCS: J2270

== ENCOUNTER 2018-06-24 09:40 | Emergency (ER) | payer OTHER ==
[~2018-06-24] VITALS: Ht 185.4 cm; Wt 102.3 kg
[~2018-06-24 09:40] MED LIST changes: +FLEXERIL 1010 MG/TAB PO; +MOBIC 7.5MG7.5 MG PO
[2018-06-24 09:43] VITALS: TEMP 97
[2018-06-24 10:04] LABS: PROTHROMBIN TIME 11.4 SECONDS (9.7-12.8)
[2018-06-24 10:18] LABS: ALANINE AMINOTRANSFERASE 29 U/L (21-72); ALBUMIN 3.6 gm/dL (3.5-5.0); ALKALINE PHOSPHATASE 88 U/L (50-136); ANION GAP 9 mmol/L (7-16); AST,SGOT 29 U/L (15-37); BILIRUBIN,TOTAL 0.7 mg/dL (0.0-1.0); BLOOD UREA NITROGEN 14 mg/dL (9-20); CALCIUM 8.5 mg/dL (8.4-10.2); CARBON DIOXIDE 24 mmol/L (22-30); CHLORIDE 108 mmol/L (98-107); CREATININE, serum 0.86 (0.66-1.25); GLUCOSE 167 mg/dL (74-106); LIPASE 155 U/L (23-300); SODIUM 141 mmol/L (137-145); TOTAL PROTEIN 6.6 gm/dL (6.4-8.2)
[2018-06-24 10:25] LABS: BASO # 0.1 (0.0-0.2); BASO % 0.8 % (0.0-2.0); EOS # 0.3 (0.0-0.7); EOS % 3.4 % (0-4.0); GRAN # 5.7 (1.4-6.5); GRAN % 76.2 % (42.2-75.2); HEMATOCRIT 44.4 % (42.0-52.0); HEMOGLOBIN 14.6 g/dl (13.5-18.0); LYMPH % 13.1 % (20.0-51.0); MEAN CELL VOLUME 97 fl (80.0-100.0); MEAN CORPUSCULAR HEMOGLOBIN 32 pg (27.0-31.0); MEAN CORPUSCULAR HGB CONC 33 g/dl (33.0-37.0); MEAN PLATELET VOLUME 10.8 fl (7.4-10.4); MONO # 0.5 (0.1-0.6); MONO % 6.2 % (1.7-9.3); PLATELET COUNT 199 K/mm3 (130-400); REDCELL DISTRIBUTION WIDTH-CV 13.2 % (11.5-14.5)
[2018-06-24 10:30] LABS: TROPONIN-I < 0.012 ng/mL (0.000-0.035)
[2018-06-24 11:13] VITALS: BP 118/67; PULSE 84
== END 2018-06-24 11:15 | disposition home or self-care (01) ==
LOC: COL.ER 09:40
PROVIDERS: Emergency Medicine
DX: R07.9 Chest pain, unspecified (principal); M54.5 Low back pain; G89.29 Other chronic pain; Z79.82 Long term (current) use of aspirin
CPT/HCPCS: J0780; J1885; J3010; J7030

== ENCOUNTER 2018-07-06 21:31 | Emergency (ER) | payer OTHER ==
[~2018-07-06] VITALS: Ht 185.4 cm; Wt 104.3 kg
[2018-07-06 23:09] VITALS: BP 114/69; PULSE 75; TEMP 98.7
== END 2018-07-06 23:10 | disposition home or self-care (01) ==
LOC: COL.ER 21:31
DX: S83.92XA Sprain of unspecified site of left knee, initial encounter (principal); W18.42XA Slipping, tripping and stumbling without falling due to stepping into hole or opening, initial encounter; Y92.009 Unspecified place in unspecified non-institutional (private) residence as the place of occurrence of the external cause; Z79.82 Long term (current) use of aspirin

== ENCOUNTER 2018-07-15 10:33 | Emergency (ER) | payer OTHER ==
[~2018-07-15] VITALS: Ht 182.9 cm; Wt 104.5 kg
[2018-07-15 10:42] VITALS: BP 105/61
[2018-07-15 12:20] LABS: COLLECTION METHOD CLEAN CATCH
[2018-07-15 12:24] LABS: BASO # 0.1 (0.0-0.2); BASO % 0.7 % (0.0-2.0); EOS # 0.1 (0.0-0.7); EOS % 1.3 % (0-4.0); GRAN % 83.8 % (42.2-75.2); HEMATOCRIT 46.1 % (42.0-52.0); HEMOGLOBIN 15.4 g/dl (13.5-18.0); LYMPH # 0.9 (1.2-3.4); LYMPH % 8.7 % (20.0-51.0); MEAN CELL VOLUME 95 fl (80.0-100.0); MEAN CORPUSCULAR HEMOGLOBIN 32 pg (27.0-31.0); MEAN CORPUSCULAR HGB CONC 33 g/dl (33.0-37.0); MEAN PLATELET VOLUME 10.3 fl (7.4-10.4); MONO # 0.6 (0.1-0.6); MONO % 5.3 % (1.7-9.3); PLATELET COUNT 240 K/mm3 (130-400); RED BLOOD COUNT 4.87 M/mm3 (4.20-5.60); REDCELL DISTRIBUTION WIDTH-CV 13.6 % (11.5-14.5)
[2018-07-15 12:33] LABS: MUCOUS Present /lpf; PH 5 (5-8); SQUAMOUS EPITHELIAL 0-2 /hpf; URINE APPEARANCE Clear; URINE BACTERIA Rare /hpf; URINE BILIRUBIN Negative (NEGATIVE); URINE BLOOD Negative (NEGATIVE); URINE COLOR Amber; URINE GLUCOSE Negative (NEGATIVE); URINE KETONE Negative (NEGATIVE); URINE LEUKOCYTE ESTERASE Negative (NEGATIVE); URINE NITRATE Negative (NEGATIVE); URINE PROTEIN(semi-quant) Negative (NEGATIVE); URINE RBC 0-2 /hpf; URINE UROBILINOGEN Negative (NEGATIVE)
[2018-07-15 12:37] LABS: ALANINE AMINOTRANSFERASE 19 U/L (21-72); ALBUMIN 4.1 gm/dL (3.5-5.0); ALKALINE PHOSPHATASE 109 U/L (50-136); ANION GAP 11 mmol/L (7-16); AST,SGOT 20 U/L (15-37); BILIRUBIN,TOTAL 1.5 mg/dL (0.0-1.0); BLOOD UREA NITROGEN 16 mg/dL (9-20); CALCIUM 9.3 mg/dL (8.4-10.2); CARBON DIOXIDE 25 mmol/L (22-30); CHLORIDE 106 mmol/L (98-107); CREATININE, serum 0.99 (0.66-1.25); GLUCOSE 107 mg/dL (74-106); POTASSIUM 3.8 mmol/L (3.4-5.0); SODIUM 142 mmol/L (137-145); TOTAL PROTEIN 7.4 gm/dL (6.4-8.2)
[2018-07-15 12:40] LABS: C-REACTIVE PROTEIN < 0.5 mg/dL (0.0-0.9)
[2018-07-15 13:25] VITALS: PULSE 70; TEMP 97.5
== END 2018-07-15 13:25 | disposition home or self-care (01) ==
LOC: COL.ER 10:33
PROVIDERS: Physician Assistant
DX: R55 Syncope and collapse (principal); E11.40 Type 2 diabetes mellitus with diabetic neuropathy, unspecified; K27.9 Peptic ulcer, site unspecified, unspecified as acute or chronic, without hemorrhage or perforation; G47.33 Obstructive sleep apnea (adult) (pediatric); F41.9 Anxiety disorder, unspecified; M54.9 Dorsalgia, unspecified; M10.9 Gout, unspecified; N40.0 Benign prostatic hyperplasia without lower urinary tract symptoms; Z90.49 Acquired absence of other specified parts of digestive tract; Z96.653 Presence of artificial knee joint, bilateral; Z98.890 Other specified postprocedural states; Z87.891 Personal history of nicotine dependence; Z79.82 Long term (current) use of aspirin

== ENCOUNTER 2018-07-19 19:47 | Emergency (ER) | payer OTHER ==
[~2018-07-19] VITALS: Ht 185.4 cm; Wt 100.5 kg
[2018-07-19 19:50] VITALS: BP 135/73; TEMP 98.2
[2018-07-19] MEDS ORDERED: CEPHALEXIN500 M1 PO (20:14)
[2018-07-19 20:26] VITALS: PULSE 92
== END 2018-07-19 20:31 | disposition home or self-care (01) ==
LOC: COL.ER 19:47
DX: L60.0 Ingrowing nail (principal); L03.031 Cellulitis of right toe; E11.9 Type 2 diabetes mellitus without complications; Z79.82 Long term (current) use of aspirin

== ENCOUNTER 2018-07-21 21:45 | Emergency (ER) | payer OTHER ==
[~2018-07-21] VITALS: Ht 185.4 cm; Wt 102.3 kg
[~2018-07-21 21:45] MED LIST changes: +CEPHALEXIN500 M1 PO
[2018-07-21 21:52] VITALS: TEMP 97
[2018-07-21 22:41] VITALS: BP 129/76; PULSE 73
== END 2018-07-21 22:37 | disposition home or self-care (01) ==
LOC: COL.ER 21:45
DX: L60.0 Ingrowing nail (principal); I10 Essential (primary) hypertension; E78.5 Hyperlipidemia, unspecified; E11.9 Type 2 diabetes mellitus without complications; Z79.82 Long term (current) use of aspirin; Z79.84 Long term (current) use of oral hypoglycemic drugs

== ENCOUNTER 2018-08-22 11:28 | Emergency (ER) | payer OTHER ==
[~2018-08-22] VITALS: Ht 185.4 cm; Wt 100.9 kg
[2018-08-22 11:51] VITALS: BP 163/83; TEMP 97.1
[2018-08-22 12:50] LABS: COLLECTION METHOD CATHETER
[2018-08-22 13:02] LABS: PH 7 (5-8); SQUAMOUS EPITHELIAL None Seen /hpf; URINE APPEARANCE Clear; URINE BACTERIA None Seen /hpf; URINE BILIRUBIN Negative (NEGATIVE); URINE BLOOD Negative (NEGATIVE); URINE COLOR Yellow; URINE GLUCOSE 3+ (NEGATIVE); URINE KETONE Negative (NEGATIVE); URINE LEUKOCYTE ESTERASE Negative (NEGATIVE); URINE NITRATE Negative (NEGATIVE); URINE PROTEIN(semi-quant) Negative (NEGATIVE); URINE RBC 0-2 /hpf; URINE UROBILINOGEN Negative (NEGATIVE)
[2018-08-22 14:30] VITALS: PULSE 79
== END 2018-08-22 14:31 | disposition home or self-care (01) ==
LOC: COL.ER 11:28
PROVIDERS: Physician Assistant
DX: R33.9 Retention of urine, unspecified (principal); K21.9 Gastro-esophageal reflux disease without esophagitis; I73.9 Peripheral vascular disease, unspecified; F41.9 Anxiety disorder, unspecified; G47.30 Sleep apnea, unspecified; Z90.49 Acquired absence of other specified parts of digestive tract; Z90.89 Acquired absence of other organs; Z96.653 Presence of artificial knee joint, bilateral; Z87.891 Personal history of nicotine dependence; Z99.89 Dependence on other enabling machines and devices

== ENCOUNTER 2018-08-22 18:48 | Emergency (ER) | payer OTHER ==
[~2018-08-22] VITALS: Ht 182.9 cm; Wt 100.9 kg
[2018-08-22 23:11] VITALS: BP 121/81; PULSE 79; TEMP 97.2
== END 2018-08-22 23:25 | disposition home or self-care (01) ==
LOC: COL.ER 18:48
DX: T83.098A Other mechanical complication of other urinary catheter, initial encounter (principal); Z90.49 Acquired absence of other specified parts of digestive tract; Z79.82 Long term (current) use of aspirin

== ENCOUNTER 2018-08-26 18:52 | Emergency (ER) | payer OTHER ==
[~2018-08-26] VITALS: Ht 185.4 cm; Wt 100.9 kg
[2018-08-26 19:06] VITALS: TEMP 97
[2018-08-26 22:06] VITALS: BP 136/64; PULSE 87
== END 2018-08-26 22:06 | disposition home or self-care (01) ==
LOC: COL.ER 18:52
DX: T83.098A Other mechanical complication of other urinary catheter, initial encounter (principal); R33.9 Retention of urine, unspecified; I10 Essential (primary) hypertension; Z87.891 Personal history of nicotine dependence; Z90.49 Acquired absence of other specified parts of digestive tract; Z95.5 Presence of coronary angioplasty implant and graft; Z98.890 Other specified postprocedural states; Z79.82 Long term (current) use of aspirin

== ENCOUNTER 2018-08-29 21:50 | Emergency (ER) | payer OTHER ==
[~2018-08-29] VITALS: Ht 185.4 cm; Wt 100.0 kg
[2018-08-29 22:05] VITALS: BP 132/80; TEMP 98.7
[2018-08-29] MEDS ORDERED: CIPRO 500MG TA500 MG PO (23:30)
[2018-08-29] MEDS ORDERED: DITROPAN 5MG TAB5 MG PO (23:31)
[2018-08-29 23:34] VITALS: PULSE 111
== END 2018-08-29 23:34 | disposition home or self-care (01) ==
LOC: COL.ER 21:50
DX: T83.098A Other mechanical complication of other urinary catheter, initial encounter (principal); N40.0 Benign prostatic hyperplasia without lower urinary tract symptoms; E11.9 Type 2 diabetes mellitus without complications; I10 Essential (primary) hypertension; Z87.891 Personal history of nicotine dependence; Z95.9 Presence of cardiac and vascular implant and graft, unspecified; Z79.84 Long term (current) use of oral hypoglycemic drugs; Z98.890 Other specified postprocedural states

== ENCOUNTER 2018-10-02 11:07 | Emergency (ER) | payer OTHER ==
[~2018-10-02] VITALS: Ht 182.9 cm; Wt 102.3 kg
[~2018-10-02 11:07] MED LIST changes: +DITROPAN 5MG TAB5 MG PO
[2018-10-02 11:10] VITALS: TEMP 97.8
[2018-10-02 11:33] LABS: BASO # 0.1 (0.0-0.2); BASO % 0.8 % (0.0-2.0); EOS # 0.2 (0.0-0.7); EOS % 2.8 % (0-4.0); GRAN # 6.8 (1.4-6.5); GRAN % 77.3 % (42.2-75.2); HEMOGLOBIN 14.8 g/dl (13.5-18.0); LYMPH # 1.1 (1.2-3.4); LYMPH % 12.3 % (20.0-51.0); MEAN CELL VOLUME 96 fl (80.0-100.0); MEAN CORPUSCULAR HEMOGLOBIN 32 pg (27.0-31.0); MEAN CORPUSCULAR HGB CONC 34 g/dl (33.0-37.0); MEAN PLATELET VOLUME 10.3 fl (7.4-10.4); MONO # 0.6 (0.1-0.6); MONO % 6.3 % (1.7-9.3); PLATELET COUNT 208 K/mm3 (130-400); RED BLOOD COUNT 4.59 M/mm3 (4.20-5.60); REDCELL DISTRIBUTION WIDTH-CV 13.5 % (11.5-14.5)
[2018-10-02 11:41] LABS: PROTHROMBIN TIME 11.9 SECONDS (9.7-12.8)
[2018-10-02 11:43] LABS: ALANINE AMINOTRANSFERASE 9 U/L (21-72); ALBUMIN 4.2 gm/dL (3.5-5.0); ALKALINE PHOSPHATASE 107 U/L (50-136); ANION GAP 11 mmol/L (7-16); AST,SGOT 18 U/L (15-37); BILIRUBIN,TOTAL 1.6 mg/dL (0.0-1.0); BLOOD UREA NITROGEN 20 mg/dL (9-20); CALCIUM 9.2 mg/dL (8.4-10.2); CARBON DIOXIDE 23 mmol/L (22-30); CHLORIDE 108 mmol/L (98-107); CREATININE, serum 0.79 (0.66-1.25); GLUCOSE 115 mg/dL (74-106); LIPASE 117 U/L (23-300); POTASSIUM 3.9 mmol/L (3.4-5.0); SODIUM 141 mmol/L (137-145); TOTAL PROTEIN 7.4 gm/dL (6.4-8.2)
[2018-10-02 11:54] LABS: TROPONIN-I < 0.012 ng/mL (0.000-0.035)
[2018-10-02 15:15] VITALS: BP 131/80; PULSE 71
== END 2018-10-02 15:15 | disposition home or self-care (01) ==
LOC: COL.ER 11:07
PROVIDERS: Emergency Medicine
DX: R07.89 Other chest pain (principal); Z95.9 Presence of cardiac and vascular implant and graft, unspecified; Z79.82 Long term (current) use of aspirin
CPT/HCPCS: J0780; J3010; J7030

== ENCOUNTER 2018-10-20 04:25 | Inpatient (IN) | payer OTHER ==
[~2018-10-20] VITALS: Ht 185.4 cm; Wt 91.2 kg
[2018-10-20 04:54] LABS: BASO # 0.1 (0.0-0.2); BASO % 0.8 % (0.0-2.0); EOS # 0.4 (0.0-0.7); GRAN % 60.6 % (42.2-75.2); HEMATOCRIT 41.3 % (42.0-52.0); HEMOGLOBIN 13.8 g/dl (13.5-18.0); LYMPH # 1.6 (1.2-3.4); LYMPH % 23.9 % (20.0-51.0); MEAN CELL VOLUME 97 fl (80.0-100.0); MEAN CORPUSCULAR HEMOGLOBIN 32 pg (27.0-31.0); MEAN CORPUSCULAR HGB CONC 33 g/dl (33.0-37.0); MEAN PLATELET VOLUME 10.4 fl (7.4-10.4); MONO # 0.6 (0.1-0.6); MONO % 8.4 % (1.7-9.3); PLATELET COUNT 219 K/mm3 (130-400); RED BLOOD COUNT 4.27 M/mm3 (4.20-5.60); REDCELL DISTRIBUTION WIDTH-CV 13.2 % (11.5-14.5)
[2018-10-20 05:05] LABS: ALANINE AMINOTRANSFERASE 9 U/L (21-72); ALBUMIN 3.7 gm/dL (3.5-5.0); ALKALINE PHOSPHATASE 80 U/L (50-136); ANION GAP 9 mmol/L (7-16); AST,SGOT 20 U/L (15-37); BILIRUBIN,TOTAL 0.8 mg/dL (0.0-1.0); BLOOD UREA NITROGEN 20 mg/dL (9-20); CALCIUM 8.4 mg/dL (8.4-10.2); CARBON DIOXIDE 24 mmol/L (22-30); CHLORIDE 109 mmol/L (98-107); CREATININE, serum 0.73 (0.66-1.25); GLUCOSE 108 mg/dL (74-106); POTASSIUM 3.9 mmol/L (3.4-5.0); PROTHROMBIN TIME 12.1 SECONDS (9.7-12.8); SODIUM 141 mmol/L (137-145); TOTAL PROTEIN 6.6 gm/dL (6.4-8.2)
[2018-10-20 05:08] LABS: PARTIAL THROMBOPLASTIN TIME 33.6 SECONDS (26.0-37.0)
[2018-10-20 05:18] LABS: TROPONIN-I < 0.012 ng/mL (0.000-0.035)
[2018-10-20 08:36] VITALS: BP 122/70; PULSE 68; TEMP 97.4
--- NOTE | 2018-10-20 11:35 | NUR ---
SW attended clinical rounds to discuss discharge planning. Patient lives independently at home. Patient's PCP is throught the [facility] and medications are obtained through the [facility] or [facility]. Patient is independent with ADLs. Patient's DPOA is his son, Romeo, and a copy is in the EMR. Hospitalist reports patient will likely discharge tomorrow. ROBYN does not anticipate any discharge needs at this time.
[2018-10-20 11:47] VITALS: BP 120/71; PULSE 59; TEMP 97.5
[2018-10-20 15:55] VITALS: BP 122/60; PULSE 64; TEMP 97.6
--- NOTE | 2018-10-20 18:03 | NUR ---
Pt resting since transferring to the floor, has had C/O pain and medications given for relief, Vs have remained stable during the day.
--- NOTE | 2018-10-20 19:13 | NUR ---
Report given DOUGLAS Hung.
[2018-10-20 19:40] VITALS: BP 126/70; PULSE 66; TEMP 97.9
--- NOTE | 2018-10-20 19:55 | NUR ---
Patient assessed at this time. Alert and oriented, and able to make needs known. Complained of level 8 pain, and given Morphine per orders. Peripheral IV to left forearm flushed. Site is without redness, warmth, swelling, and pain. Denies having SOB except with exertion. LS CTA. Respirations even and unlabored. HRR. Telemetry in place. Capillary refill less than 3 seconds. Non-tenting skin turgor. BSAx4. Abdomen soft and non-tender. 1+ edema BLE. Voices no questions, needs, or concerns at this time. Call light is within reach.
[2018-10-20 23:36] VITALS: BP 120/62; PULSE 72; TEMP 97.9
--- NOTE | 2018-10-21 01:12 | NUR ---
Reported pain to back/legs/chest/feet rated as a 9. Given PRN Morphine 2 mg IV as requested for pain. Voices no other questions, needs, or concerns at this time. Call light within reach.
[2018-10-21 03:23] VITALS: BP 126/62; PULSE 78; TEMP 97.8
--- NOTE | 2018-10-21 07:17 | NUR ---
Patient has received PRN Morphine as requested for pain. Denied having any other questions, needs, or concerns. Denies having SOB and dyspnea. Resting in bed with call light within reach.
[2018-10-21 07:23] VITALS: BP 130/66; PULSE 74; TEMP 97.9
--- NOTE | 2018-10-21 07:29 | NUR ---
Report received from DOUGLAS Hung.
--- NOTE | 2018-10-21 10:06 | NUR ---
Pt awake and alert upon entry, some C/O pain in chest 08/24, medications given for relief, shift assessments complete, left Pt call light in reach, bed in lowest position.
--- NOTE | 2018-10-21 10:21 | NUR ---
SW met with the patient to discuss a discharge plan. The patient lives alone in [place]. The patient has a cane and walker in case he needs them and reports independence with ADLs. The patient's PCP is Gabriel Nunn from [facility] and patient also receives medications from there. The patient has advanced directives in the EMR. The patient will return home upon discharge and may need a taxi voucher. The patient may need medication voucher assistance. banking services clerk will continue to follow to ensure a safe discharge.
[2018-10-21] MEDS ORDERED: ELIQUIS 5MG PO ×4 (11:10→14:03)
[2018-10-21 11:36] VITALS: BP 139/62; PULSE 79; TEMP 97.9
--- NOTE | 2018-10-21 15:52 | NUR ---
Pt discharged to home, escorted to entrance to wait for taxi service.
== END 2018-10-21 15:54 | disposition home or self-care (01) | DRG 299 ==
LOC: COL.ER 04:25 → MEDICAL 06:46 → COL.ER 06:46 → MEDICAL 06:47
PROVIDERS: Emergency Medicine; ADMIT Student in an Organized Health Care Education/Training Program
DX: I82.433 Acute embolism and thrombosis of popliteal vein, bilateral (principal); I26.99 Other pulmonary embolism without acute cor pulmonale; I10 Essential (primary) hypertension; E11.9 Type 2 diabetes mellitus without complications; E78.5 Hyperlipidemia, unspecified; G89.29 Other chronic pain; M54.9 Dorsalgia, unspecified; K21.9 Gastro-esophageal reflux disease without esophagitis; E66.9 Obesity, unspecified; K58.9 Irritable bowel syndrome, unspecified; M10.9 Gout, unspecified
CPT/HCPCS: 99222-AI; 99239; J1650; J2270; J2405; J3010; J7030; Q9967

== ENCOUNTER 2018-10-24 22:13 | Emergency (ER) | payer OTHER ==
[~2018-10-24] VITALS: Ht 185.4 cm; Wt 102.3 kg
[~2018-10-24 22:13] MED LIST changes: +ELIQUIS 5MG PO
[2018-10-24 22:17] VITALS: TEMP 98.2
[2018-10-24 23:12] LABS: COLLECTION METHOD CATHETER
[2018-10-24 23:20] LABS: PH 6 (5-8); SQUAMOUS EPITHELIAL None Seen /hpf; URINE APPEARANCE Cloudy; URINE BACTERIA None Seen /hpf; URINE BILIRUBIN Negative (NEGATIVE); URINE BLOOD 3+ (NEGATIVE); URINE COLOR Yellow; URINE GLUCOSE 3+ (NEGATIVE); URINE KETONE Negative (NEGATIVE); URINE LEUKOCYTE ESTERASE Negative (NEGATIVE); URINE NITRATE Negative (NEGATIVE); URINE PROTEIN(semi-quant) 2+ (NEGATIVE); URINE RBC >50 /hpf; URINE UROBILINOGEN Negative (NEGATIVE)
[2018-10-24 23:26] LABS: BASO # 0.1 (0.0-0.2); BASO % 0.9 % (0.0-2.0); EOS # 0.5 (0.0-0.7); EOS % 6.2 % (0-4.0); GRAN # 5.3 (1.4-6.5); GRAN % 65.5 % (42.2-75.2); HEMATOCRIT 44.7 % (42.0-52.0); HEMOGLOBIN 14.9 g/dl (13.5-18.0); LYMPH # 1.6 (1.2-3.4); LYMPH % 19.9 % (20.0-51.0); MEAN CELL VOLUME 95 fl (80.0-100.0); MEAN CORPUSCULAR HEMOGLOBIN 32 pg (27.0-31.0); MEAN CORPUSCULAR HGB CONC 33 g/dl (33.0-37.0); MEAN PLATELET VOLUME 10.4 fl (7.4-10.4); MONO # 0.6 (0.1-0.6); MONO % 7.4 % (1.7-9.3); PLATELET COUNT 261 K/mm3 (130-400); RED BLOOD COUNT 4.69 M/mm3 (4.20-5.60); REDCELL DISTRIBUTION WIDTH-CV 13.1 % (11.5-14.5)
[2018-10-24 23:36] LABS: ALANINE AMINOTRANSFERASE 15 U/L (21-72); ALBUMIN 4.2 gm/dL (3.5-5.0); ALKALINE PHOSPHATASE 98 U/L (50-136); ANION GAP 11 mmol/L (7-16); AST,SGOT 19 U/L (15-37); BILIRUBIN,TOTAL 0.7 mg/dL (0.0-1.0); BLOOD UREA NITROGEN 22 mg/dL (9-20); C-REACTIVE PROTEIN < 0.5 mg/dL (0.0-0.9); CALCIUM 8.8 mg/dL (8.4-10.2); CARBON DIOXIDE 23 mmol/L (22-30); CHLORIDE 107 mmol/L (98-107); GLUCOSE 105 mg/dL (74-106); POTASSIUM 3.3 mmol/L (3.4-5.0); SODIUM 141 mmol/L (137-145); TOTAL PROTEIN 7.4 gm/dL (6.4-8.2)
[2018-10-25] MEDS ORDERED: LEVAQUIN 5500 MG/TA1 PO ×3 (00:09→00:39)
[2018-10-25 00:26] VITALS: BP 116/65; PULSE 74
== END 2018-10-25 00:34 | disposition home or self-care (01) ==
LOC: COL.ER 22:13
PROVIDERS: Emergency Medicine
DX: N50.811 Right testicular pain (principal); R31.9 Hematuria, unspecified; E11.9 Type 2 diabetes mellitus without complications; I10 Essential (primary) hypertension; E78.5 Hyperlipidemia, unspecified; K21.9 Gastro-esophageal reflux disease without esophagitis; M10.9 Gout, unspecified; Z90.79 Acquired absence of other genital organ(s); Z86.718 Personal history of other venous thrombosis and embolism; Z86.711 Personal history of pulmonary embolism; Z79.01 Long term (current) use of anticoagulants; Z79.82 Long term (current) use of aspirin

== ENCOUNTER 2018-10-30 12:59 | Emergency (ER) | payer OTHER ==
[~2018-10-30] VITALS: Ht 185.4 cm; Wt 102.3 kg
[~2018-10-30 12:59] MED LIST changes: +LEVAQUIN 5500 MG/TA1 PO
[2018-10-30 13:07] VITALS: TEMP 97.7
[2018-10-30 13:27] LABS: BASO # 0.1 (0.0-0.2); BASO % 0.8 % (0.0-2.0); EOS # 0.2 (0.0-0.7); EOS % 2.2 % (0-4.0); GRAN # 5.7 (1.4-6.5); GRAN % 74.9 % (42.2-75.2); HEMATOCRIT 45.7 % (42.0-52.0); HEMOGLOBIN 15.2 g/dl (13.5-18.0); LYMPH # 1.2 (1.2-3.4); LYMPH % 15.7 % (20.0-51.0); MEAN CELL VOLUME 97 fl (80.0-100.0); MEAN CORPUSCULAR HEMOGLOBIN 32 pg (27.0-31.0); MEAN CORPUSCULAR HGB CONC 33 g/dl (33.0-37.0); MEAN PLATELET VOLUME 10.4 fl (7.4-10.4); MONO # 0.5 (0.1-0.6); MONO % 6.1 % (1.7-9.3); PLATELET COUNT 242 K/mm3 (130-400); RED BLOOD COUNT 4.73 M/mm3 (4.20-5.60); REDCELL DISTRIBUTION WIDTH-CV 12.8 % (11.5-14.5)
[2018-10-30 13:42] LABS: INR 1.2 (0.8-3.0); PROTHROMBIN TIME 13.9 SECONDS (9.7-12.8)
[2018-10-30 13:45] LABS: PARTIAL THROMBOPLASTIN TIME 41.7 SECONDS (26.0-37.0)
[2018-10-30 13:50] LABS: ALANINE AMINOTRANSFERASE 10 U/L (21-72); ALBUMIN 4.1 gm/dL (3.5-5.0); ALKALINE PHOSPHATASE 90 U/L (50-136); ANION GAP 9 mmol/L (7-16); AST,SGOT 22 U/L (15-37); BLOOD UREA NITROGEN 18 mg/dL (9-20); CARBON DIOXIDE 23 mmol/L (22-30); CHLORIDE 108 mmol/L (98-107); CREATININE, serum 0.89 (0.66-1.25); GLUCOSE 141 mg/dL (74-106); SODIUM 140 mmol/L (137-145); TOTAL PROTEIN 7.3 gm/dL (6.4-8.2)
[2018-10-30 14:08] LABS: TROPONIN-I < 0.012 ng/mL (0.000-0.035)
[2018-10-30 16:16] VITALS: BP 132/85; PULSE 87
== END 2018-10-30 16:16 | disposition home or self-care (01) ==
LOC: COL.ER 12:59
PROVIDERS: Family Medicine
DX: R07.89 Other chest pain (principal); Z79.82 Long term (current) use of aspirin; Z79.01 Long term (current) use of anticoagulants
CPT/HCPCS: J3010; Q9967

== ENCOUNTER 2018-11-30 12:42 | Emergency (ER) | payer OTHER ==
[~2018-11-30] VITALS: Ht 185.4 cm; Wt 102.3 kg
[2018-11-30 12:49] VITALS: TEMP 97.2
[2018-11-30 13:07] LABS: BASO % 0.5 % (0.0-2.0); EOS # 0.2 (0.0-0.7); GRAN # 5.3 (1.4-6.5); GRAN % 72.4 % (42.2-75.2); HEMATOCRIT 49.8 % (42.0-52.0); HEMOGLOBIN 16.4 g/dl (13.5-18.0); LYMPH # 1.2 (1.2-3.4); LYMPH % 16.5 % (20.0-51.0); MEAN CELL VOLUME 96 fl (80.0-100.0); MEAN CORPUSCULAR HEMOGLOBIN 32 pg (27.0-31.0); MEAN CORPUSCULAR HGB CONC 33 g/dl (33.0-37.0); MEAN PLATELET VOLUME 10.2 fl (7.4-10.4); MONO # 0.5 (0.1-0.6); MONO % 7.3 % (1.7-9.3); PLATELET COUNT 225 K/mm3 (130-400)
[2018-11-30 13:10] LABS: PROTHROMBIN TIME 11.2 SECONDS (9.7-12.8)
[2018-11-30 13:12] LABS: PARTIAL THROMBOPLASTIN TIME 43.5 SECONDS (26.0-37.0)
[2018-11-30 13:14] LABS: ALANINE AMINOTRANSFERASE 19 U/L (21-72); ALBUMIN 4.4 gm/dL (3.5-5.0); ALKALINE PHOSPHATASE 96 U/L (50-136); ANION GAP 12 mmol/L (7-16); AST,SGOT 24 U/L (15-37); BILIRUBIN,TOTAL 0.5 mg/dL (0.0-1.0); BLOOD UREA NITROGEN 13 mg/dL (9-20); CARBON DIOXIDE 25 mmol/L (22-30); CHLORIDE 107 mmol/L (98-107); GLUCOSE 101 mg/dL (74-106); LIPASE 159 U/L (23-300); POTASSIUM 4.3 mmol/L (3.4-5.0); SODIUM 143 mmol/L (137-145); TOTAL PROTEIN 7.8 gm/dL (6.4-8.2)
[2018-11-30 13:25] LABS: TROPONIN-I < 0.012 ng/mL (0.000-0.035)
[2018-11-30 14:40] LABS: COLLECTION METHOD CLEAN CATCH
[2018-11-30 14:56] LABS: PH 7 (5-8); SQUAMOUS EPITHELIAL None Seen /hpf; URINE APPEARANCE Clear; URINE BACTERIA None Seen /hpf; URINE BILIRUBIN Negative (NEGATIVE); URINE BLOOD 2+ (NEGATIVE); URINE COLOR Yellow; URINE GLUCOSE 3+ (NEGATIVE); URINE KETONE Negative (NEGATIVE); URINE LEUKOCYTE ESTERASE Negative (NEGATIVE); URINE NITRATE Negative (NEGATIVE); URINE PROTEIN(semi-quant) Negative (NEGATIVE); URINE UROBILINOGEN Negative (NEGATIVE)
[2018-11-30] MEDS ORDERED: FOLIC ACID0.4 MG PO (15:01)
[2018-11-30] MEDS ORDERED: FLOMAX 0.40.4 MG/CAP PO (15:04)
[2018-11-30] MEDS ORDERED: VITAMIN D31000 I1 PO (15:05)
[2018-11-30] MEDS ORDERED: ELIQUIS 5MG PO (15:07)
[2018-11-30] MEDS ORDERED: ZOFRAN ODT4 MG PO (17:31)
[2018-11-30 18:00] VITALS: BP 121/66; PULSE 64
[2018-12-01] MEDS ORDERED: PROBIOTIC FORMU1 CAP PO (21:47)
== END 2018-11-30 18:00 | disposition home or self-care (01) ==
LOC: COL.ER 12:42
PROVIDERS: Emergency Medicine; Physician Assistant
DX: R07.89 Other chest pain (principal); B34.9 Viral infection, unspecified; R11.0 Nausea; K21.9 Gastro-esophageal reflux disease without esophagitis; I10 Essential (primary) hypertension; E78.5 Hyperlipidemia, unspecified; M10.9 Gout, unspecified; E11.42 Type 2 diabetes mellitus with diabetic polyneuropathy; Z79.01 Long term (current) use of anticoagulants; Z87.891 Personal history of nicotine dependence; Z98.890 Other specified postprocedural states; Z86.718 Personal history of other venous thrombosis and embolism; Z86.711 Personal history of pulmonary embolism
CPT/HCPCS: J2270; J2405; J2550; J3010; J7030

== ENCOUNTER 2019-02-07 07:18 | Emergency (ER) | payer OTHER ==
[~2019-02-07] VITALS: Ht 185.4 cm; Wt 109.1 kg
[~2019-02-07 07:18] MED LIST changes: +PROBIOTIC FORMU1 CAP PO; +VITAMIN D31000 I1 PO; +ZOFRAN ODT4 MG PO
[2019-02-07 07:24] VITALS: BP 146/68; TEMP 97.7
[2019-02-07 09:50] VITALS: PULSE 74
== END 2019-02-07 09:50 | disposition home or self-care (01) ==
LOC: COL.ER 07:18
DX: S63.502A Unspecified sprain of left wrist, initial encounter (principal); M10.9 Gout, unspecified; Z86.711 Personal history of pulmonary embolism; Z79.01 Long term (current) use of anticoagulants; X50.0XXA Overexertion from strenuous movement or load, initial encounter

== ENCOUNTER 2019-02-22 07:43 | Emergency (ER) | payer OTHER ==
[~2019-02-22] VITALS: Ht 185.4 cm; Wt 109.1 kg
[2019-02-22 07:55] VITALS: TEMP 98
[2019-02-22 08:49] LABS: BASO # 0.1 (0.0-0.2); BASO % 0.5 % (0.0-2.0); EOS # 0.2 (0.0-0.7); EOS % 1.6 % (0-4.0); GRAN # 7.6 (1.4-6.5); GRAN % 81.9 % (42.2-75.2); HEMATOCRIT 48.1 % (42.0-52.0); LYMPH # 0.9 (1.2-3.4); LYMPH % 9.8 % (20.0-51.0); MEAN CELL VOLUME 95 fl (80.0-100.0); MEAN CORPUSCULAR HEMOGLOBIN 32 pg (27.0-31.0); MEAN CORPUSCULAR HGB CONC 33 g/dl (33.0-37.0); MEAN PLATELET VOLUME 10.7 fl (7.4-10.4); MONO # 0.5 (0.1-0.6); MONO % 5.8 % (1.7-9.3); PLATELET COUNT 173 K/mm3 (130-400); RED BLOOD COUNT 5.06 M/mm3 (4.20-5.60); REDCELL DISTRIBUTION WIDTH-CV 13.6 % (11.5-14.5)
[2019-02-22 09:02] LABS: ALANINE AMINOTRANSFERASE 6 U/L (21-72); ALBUMIN 4.3 gm/dL (3.5-5.0); ALKALINE PHOSPHATASE 104 U/L (50-136); ANION GAP 11 mmol/L (7-16); AST,SGOT 26 U/L (15-37); BILIRUBIN,TOTAL 0.7 mg/dL (0.0-1.0); BLOOD UREA NITROGEN 16 mg/dL (9-20); CALCIUM 8.8 mg/dL (8.4-10.2); CARBON DIOXIDE 24 mmol/L (22-30); CHLORIDE 106 mmol/L (98-107); CREATININE, serum 0.88 (0.66-1.25); GLUCOSE 201 mg/dL (74-106); SODIUM 141 mmol/L (137-145); TOTAL PROTEIN 7.6 gm/dL (6.4-8.2)
[2019-02-22 09:14] LABS: TROPONIN-I < 0.012 ng/mL (0.000-0.035)
[2019-02-22 10:10] VITALS: BP 128/73; PULSE 91
== END 2019-02-22 10:10 | disposition home or self-care (01) ==
LOC: COL.ER 07:43
PROVIDERS: Family Medicine
DX: R42 Dizziness and giddiness (principal); E86.0 Dehydration; E11.9 Type 2 diabetes mellitus without complications; Z86.73 Personal history of transient ischemic attack (TIA), and cerebral infarction without residual deficits; Z79.01 Long term (current) use of anticoagulants
CPT/HCPCS: J2405; J3010; J7030

== ENCOUNTER 2019-02-23 13:34 | Inpatient (IN) | payer MEDICARE ==
[~2019-02-23] VITALS: Ht 185.4 cm; Wt 111.0 kg
[2019-02-23 14:48] LABS: BASO # 0.1 (0.0-0.2); BASO % 0.5 % (0.0-2.0); EOS # 0.1 (0.0-0.7); EOS % 1.2 % (0-4.0); GRAN # 7.3 (1.4-6.5); GRAN % 77.7 % (42.2-75.2); HEMATOCRIT 44.1 % (42.0-52.0); HEMOGLOBIN 14.7 g/dl (13.5-18.0); LYMPH # 1.3 (1.2-3.4); LYMPH % 13.9 % (20.0-51.0); MEAN CELL VOLUME 97 fl (80.0-100.0); MEAN CORPUSCULAR HEMOGLOBIN 32 pg (27.0-31.0); MEAN CORPUSCULAR HGB CONC 33 g/dl (33.0-37.0); MEAN PLATELET VOLUME 10.8 fl (7.4-10.4); MONO # 0.6 (0.1-0.6); MONO % 6.3 % (1.7-9.3); PLATELET COUNT 231 K/mm3 (130-400); RED BLOOD COUNT 4.57 M/mm3 (4.20-5.60); REDCELL DISTRIBUTION WIDTH-CV 13.9 % (11.5-14.5)
[2019-02-23 14:50] LABS: INR 1.1 (0.8-3.0); PROTHROMBIN TIME 12.5 SECONDS (9.7-12.8)
[2019-02-23 15:00] LABS: ALANINE AMINOTRANSFERASE 14 U/L (21-72); ALBUMIN 4.2 gm/dL (3.5-5.0); ALKALINE PHOSPHATASE 88 U/L (50-136); ANION GAP 9 mmol/L (7-16); AST,SGOT 19 U/L (15-37); BILIRUBIN,TOTAL 0.9 mg/dL (0.0-1.0); BLOOD UREA NITROGEN 19 mg/dL (9-20); CALCIUM 8.8 mg/dL (8.4-10.2); CARBON DIOXIDE 23 mmol/L (22-30); CHLORIDE 108 mmol/L (98-107); CREATININE, serum 0.88 (0.66-1.25); GLUCOSE 151 mg/dL (74-106); LIPASE 161 U/L (23-300); POTASSIUM 3.7 mmol/L (3.4-5.0); SODIUM 140 mmol/L (137-145); TOTAL PROTEIN 7.4 gm/dL (6.4-8.2)
[2019-02-23 15:02] LABS: C-REACTIVE PROTEIN < 0.5 mg/dL (0.0-0.9)
--- NOTE | 2019-02-23 17:33 | NUR ---
Patient arrived to floor from ED via wheel chair. Patient is alert and oriented, answers questions appropriately. Patient denies pain or needs at this time, call light within reach.
[2019-02-23 18:01] VITALS: BP 116/65; PULSE 62; TEMP 97.6
[2019-02-23 19:57] LABS: COLLECTION METHOD CLEAN CATCH
[2019-02-23 20:00] VITALS: BP 120/60; PULSE 59; TEMP 97.4
[2019-02-23 20:11] LABS: PH 6 (5-8); SQUAMOUS EPITHELIAL None Seen /hpf; URINE APPEARANCE Clear; URINE BACTERIA None Seen /hpf; URINE BILIRUBIN Negative (NEGATIVE); URINE BLOOD Negative (NEGATIVE); URINE COLOR Yellow; URINE GLUCOSE 3+ (NEGATIVE); URINE KETONE Negative (NEGATIVE); URINE LEUKOCYTE ESTERASE Negative (NEGATIVE); URINE NITRATE Negative (NEGATIVE); URINE PROTEIN(semi-quant) Negative (NEGATIVE); URINE RBC 0-2 /hpf; URINE UROBILINOGEN Negative (NEGATIVE)
[2019-02-23 21:50] LABS: HEMATOCRIT 48.1 % (42.0-52.0); HEMOGLOBIN 15.7 g/dl (13.5-18.0)
[2019-02-23 23:22] VITALS: BP 118/63; PULSE 57; TEMP 97.9
[2019-02-24 03:15] VITALS: BP 116/76; PULSE 59; TEMP 97.8
[2019-02-24 03:37] LABS: BASO # 0.1 (0.0-0.2); EOS # 0.4 (0.0-0.7); EOS % 6.3 % (0-4.0); GRAN # 3.5 (1.4-6.5); GRAN % 55.5 % (42.2-75.2); HEMATOCRIT 40.2 % (42.0-52.0); LYMPH # 1.7 (1.2-3.4); LYMPH % 26.8 % (20.0-51.0); MEAN CELL VOLUME 98 fl (80.0-100.0); MEAN CORPUSCULAR HEMOGLOBIN 32 pg (27.0-31.0); MEAN CORPUSCULAR HGB CONC 33 g/dl (33.0-37.0); MEAN PLATELET VOLUME 10.6 fl (7.4-10.4); MONO # 0.6 (0.1-0.6); MONO % 10.1 % (1.7-9.3); PLATELET COUNT 187 K/mm3 (130-400); RED BLOOD COUNT 4.12 M/mm3 (4.20-5.60); REDCELL DISTRIBUTION WIDTH-CV 13.9 % (11.5-14.5)
[2019-02-24 03:38] LABS: HEMOGLOBIN 13.1 g/dl (13.5-18.0)
[2019-02-24 03:47] LABS: CREATININE, serum 0.77 (0.66-1.25); MAGNESIUM 1.8 mg/dL (1.6-2.3); POTASSIUM 3.9 mmol/L (3.4-5.0)
--- NOTE | 2019-02-24 04:07 | NUR ---
Patient rested well throughout the night. Requests increase in pain medication and frequency of morphine was increased per Karen Moody APRN. Patient has had no further requests in regards to pain medication. Hemoccult negative. On contact precautions until results return from C. diff tests. Patient tolerating clear liquids well with no nausea. Lab notified this nurse with a delta check as patient's hemoglobin dropped from 15.7 to 13.1. Karen Moody APRN, notified. 5 page completed when this nurse came on shift. Will continue to monitor patient.
[2019-02-24 08:20] VITALS: BP 127/69; PULSE 68; TEMP 97.8
[2019-02-24 09:45] LABS: HEMATOCRIT 44.1 % (42.0-52.0); HEMOGLOBIN 14.3 g/dl (13.5-18.0)
--- NOTE | 2019-02-24 11:24 | NUR ---
SW met with the patient to discuss discharge plan. The patient lives alone in [place]. He states that his son, Romeo ([id number]#[phone]), lives in [place] and his daughter, Christi, lives in [place]. He reports independence with ADLs and has a cane, walker, and wheelchair. The patient's PCP is Dr. Bety Parson and he receives his medications from the [facility] or will utilize the [facility]. He states that he tries to get all his medications through the [place], otherwise he has difficulties affording his meds. The patient's advanced directives are in EMR. His DPOA-HC is his son, Romeo. The patient plans to return home upon discharge. No additional needs at this time.
[2019-02-24 12:05] VITALS: BP 118/69; PULSE 66; TEMP 97.9
--- NOTE | 2019-02-24 13:59 | NUR ---
Patient resting in bed. Hospitalist team has rounded. Patient is alert & oriented. He has had pain. Headache from this am is resolved, but abdominal pain & chronic back pain continues. Morphine for pain per orders. K pad applied to his back. He continues to tolerate clears, no nausea. He enjoys sprite & lao ice. Ivf per orders. Scds Ble. [facility] Med rec also updated and reviewed with patient. Will monitor.
[2019-02-24 15:01] LABS: HEMATOCRIT 42.1 % (42.0-52.0); HEMOGLOBIN 13.7 g/dl (13.5-18.0)
[2019-02-24 16:50] VITALS: BP 114/64; PULSE 61; TEMP 98.3
--- NOTE | 2019-02-24 18:26 | NUR ---
Patient tolerated general diet dinner. rounded. New medication orders given. He denies needing pain medication at this time, but his chronic back pain continues.
[2019-02-24 19:37] VITALS: BP 126/59; PULSE 96; TEMP 97.6
[2019-02-25 00:10] VITALS: BP 134/60; PULSE 82; TEMP 97.2
[2019-02-25 03:48] VITALS: BP 146/71; PULSE 75; TEMP 97.9
--- NOTE | 2019-02-25 05:21 | NUR ---
Patient has rested well tonight. Requests PRN pain medication frequently d/t back pain. New order of Benadryl received from Karen Moody APRN for sleep. Patient takes this medication at home. Patient tolerating PO fluids and has good urine output. Denies any further needs. Will continue to monitor.
[2019-02-25 08:24] VITALS: BP 157/67; PULSE 92; TEMP 98
--- NOTE | 2019-02-25 08:40 | NUR ---
Report from DOUGLAS Flood. Pt called for pain med, IV morphine given, protonix given by this nurse per agreement with Aleena as she reports pt did not sleep well last night and he was asleep per Aleena just prior to shift change. Pt used urinal in bed, has gown on, glasses on tray, ate 100% breakfast, no SSI required. Provided gripper socks. Asked pt if his plan is to return home, he states yes. Pt denied any stools, but thinks he may have one after nurse leaves. Provided cup of ice.
--- NOTE | 2019-02-25 09:53 | NUR ---
Provided with toothbrush/paste, comb, towels, washclothes, soap, declined deoderant. Asked pt to call prior to showering and staff with cover his IV site. Verbalized understanding. Pt to chair with gripper socks in place.
[2019-02-25] MEDS ORDERED: BENTYL 10MG10 MG/CAP PO (10:36)
[2019-02-25 11:02] VITALS: BP 136/66; PULSE 73; TEMP 97.8
[2019-02-25 11:58] LABS: BASO % 0.4 % (0.0-2.0); EOS # 0.3 (0.0-0.7); EOS % 4.2 % (0-4.0); GRAN # 4.9 (1.4-6.5); GRAN % 70.7 % (42.2-75.2); HEMATOCRIT 42.7 % (42.0-52.0); HEMOGLOBIN 14.1 g/dl (13.5-18.0); LYMPH % 14.4 % (20.0-51.0); MEAN CELL VOLUME 97 fl (80.0-100.0); MEAN CORPUSCULAR HEMOGLOBIN 32 pg (27.0-31.0); MEAN CORPUSCULAR HGB CONC 33 g/dl (33.0-37.0); MEAN PLATELET VOLUME 10.7 fl (7.4-10.4); MONO # 0.7 (0.1-0.6); MONO % 9.9 % (1.7-9.3); PLATELET COUNT 201 K/mm3 (130-400); RED BLOOD COUNT 4.39 M/mm3 (4.20-5.60); REDCELL DISTRIBUTION WIDTH-CV 13.4 % (11.5-14.5)
[2019-02-25 12:08] LABS: CALCIUM 8.7 mg/dL (8.4-10.2); CREATININE, serum 0.8 (0.66-1.25)
--- NOTE | 2019-02-25 15:17 | NUR ---
Printed pt health summary, discharge summary, and home med list and reviewed with pt. Provided printed prescription for bentyl. Stressed importance of following up with PCP Dr. Parson and GI at [facility]. Belongings gathered by pt including glasses, two smart phones, clothes, shoes, keys. INT removed. Pt escourted by HA Lomas out of hospital. Pt denied questions.
== END 2019-02-25 13:45 | disposition home or self-care (01) | DRG 394 ==
LOC: COL.ER 13:34 → SURG 15:15
PROVIDERS: Family Medicine; Nurse Practitioner Family; Physician Assistant; ADMIT Hospitalist
DX: K64.9 Unspecified hemorrhoids (principal); D68.32 Hemorrhagic disorder due to extrinsic circulating anticoagulants; T45.515A Adverse effect of anticoagulants, initial encounter; E78.5 Hyperlipidemia, unspecified; K58.8 Other irritable bowel syndrome; E11.40 Type 2 diabetes mellitus with diabetic neuropathy, unspecified; G89.29 Other chronic pain; I10 Essential (primary) hypertension; Z96.653 Presence of artificial knee joint, bilateral; N40.1 Benign prostatic hyperplasia with lower urinary tract symptoms; R33.8 Other retention of urine; M10.9 Gout, unspecified; R19.7 Diarrhea, unspecified; K21.9 Gastro-esophageal reflux disease without esophagitis; Z86.73 Personal history of transient ischemic attack (TIA), and cerebral infarction without residual deficits; Z86.718 Personal history of other venous thrombosis and embolism; Z86.711 Personal history of pulmonary embolism; Z68.32 Body mass index [BMI] 32.0-32.9, adult
CPT/HCPCS: 99232-AI; 99239; C9113; J2270; J2405; J3010; J7030; J7120; Q9967

== ENCOUNTER 2019-08-06 22:34 | Emergency (ER) | payer OTHER ==
[~2019-08-06] VITALS: Ht 185.4 cm; Wt 104.5 kg
[2019-08-06 22:35] VITALS: TEMP 97.7
[2019-08-06 22:55] LABS: BASO # 0.1 (0.0-0.2); BASO % 0.7 % (0.0-2.0); EOS # 0.2 (0.0-0.7); EOS % 2.3 % (0-4.0); GRAN # 6.2 (1.4-6.5); GRAN % 73.6 % (42.2-75.2); HEMOGLOBIN 15.5 g/dl (13.5-18.0); LYMPH # 1.3 (1.2-3.4); LYMPH % 15.7 % (20.0-51.0); MEAN CELL VOLUME 95 fl (80.0-100.0); MEAN CORPUSCULAR HEMOGLOBIN 31 pg (27.0-31.0); MEAN CORPUSCULAR HGB CONC 33 g/dl (33.0-37.0); MEAN PLATELET VOLUME 10.5 fl (7.4-10.4); MONO # 0.6 (0.1-0.6); MONO % 7.2 % (1.7-9.3); PLATELET COUNT 238 K/mm3 (130-400); RED BLOOD COUNT 4.93 M/mm3 (4.20-5.60); REDCELL DISTRIBUTION WIDTH-CV 13.8 % (11.5-14.5)
[2019-08-06 23:00] LABS: INR 1.2 (0.8-3.0); PROTHROMBIN TIME 13.8 SECONDS (9.7-12.8)
[2019-08-06 23:06] LABS: ALANINE AMINOTRANSFERASE 12 U/L (4-49); ALBUMIN 4.2 gm/dL (3.5-5.0); ALKALINE PHOSPHATASE 94 U/L (50-136); ANION GAP 9 mmol/L (7-16); AST,SGOT 17 U/L (15-37); BILIRUBIN,TOTAL 0.9 mg/dL (0.0-1.0); BLOOD UREA NITROGEN 16 mg/dL (9-20); CALCIUM 9.3 mg/dL (8.4-10.2); CARBON DIOXIDE 25 mmol/L (22-30); CHLORIDE 104 mmol/L (98-107); CREATININE, serum 1.05 (0.66-1.25); GLUCOSE 107 mg/dL (74-106); LIPASE 217 U/L (23-300); POTASSIUM 3.7 mmol/L (3.4-5.0); SODIUM 138 mmol/L (137-145); TOTAL PROTEIN 7.7 gm/dL (6.4-8.2)
[2019-08-06] MEDS ORDERED: TYLENOL 500MG500 MG PO (23:08)
[2019-08-06] MEDS ORDERED: FERRO-TIME325 MG PO (23:11)
[2019-08-06] MEDS ORDERED: LEXAPRO 10MG10 MG PO (23:13)
[2019-08-06] MEDS ORDERED: ZILRETTA32 MG (23:17)
[2019-08-06] MEDS ORDERED: ZYRTEC 10MG10 MG PO (23:17)
[2019-08-06] MEDS ORDERED: DIFICID200 MG PO (23:18)
[2019-08-06] MEDS ORDERED: PROSCAR 5MG5 MG PO (23:19)
[2019-08-06 23:20] LABS: TROPONIN-I < 0.012 ng/mL (0.000-0.035)
[2019-08-07] MEDS ORDERED: MORPHINE 1515 MG/TAB PO (02:42)
[2019-08-07 02:45] VITALS: BP 128/62; PULSE 78
== END 2019-08-07 02:45 | disposition home or self-care (01) ==
LOC: COL.ER 22:34
PROVIDERS: Emergency Medicine
DX: R07.9 Chest pain, unspecified (principal); E11.9 Type 2 diabetes mellitus without complications; R51 Headache; I26.99 Other pulmonary embolism without acute cor pulmonale; Z79.84 Long term (current) use of oral hypoglycemic drugs; Z98.890 Other specified postprocedural states; Z79.899 Other long term (current) drug therapy
CPT/HCPCS: J0780; J2270; J7030; Q9967

== ENCOUNTER 2019-11-08 12:45 | Outpatient (RCR) | payer OTHER ==
[~2019-11-08 12:45] MED LIST changes: +DIFICID200 MG PO; +LEXAPRO 10MG10 MG PO; +PROSCAR 5MG5 MG PO; +TYLENOL 500MG500 MG PO; +ZILRETTA32 MG
[2019-11-29] MEDS ORDERED: MORPHINE 1515 MG/TAB PO (08:41)
== END 2019-11-09 09:05 | disposition home or self-care (01) ==
LOC: MKS.ESL.PT 12:45
DX: M76.61 Achilles tendinitis, right leg (principal)

== ENCOUNTER 2020-01-14 12:49 | Emergency (ER) | payer OTHER ==
[~2020-01-14] VITALS: Ht 185.4 cm; Wt 109.1 kg
[2020-01-14 12:53] VITALS: BP 191/77
[2020-01-14 13:38] LABS: BASO # 0.1 (0.0-0.2); BASO % 0.8 % (0.0-2.0); EOS # 0.2 (0.0-0.7); GRAN # 5.7 (1.4-6.5); GRAN % 72.8 % (42.2-75.2); HEMATOCRIT 46.3 % (42.0-52.0); HEMOGLOBIN 15.3 g/dl (13.5-18.0); LYMPH # 1.3 (1.2-3.4); LYMPH % 16.6 % (20.0-51.0); MEAN CELL VOLUME 95 fl (80.0-100.0); MEAN CORPUSCULAR HEMOGLOBIN 31 pg (27.0-31.0); MEAN CORPUSCULAR HGB CONC 33 g/dl (33.0-37.0); MEAN PLATELET VOLUME 10.2 fl (7.4-10.4); MONO # 0.6 (0.1-0.6); MONO % 7.5 % (1.7-9.3); PLATELET COUNT 265 K/mm3 (130-400); RED BLOOD COUNT 4.88 M/mm3 (4.20-5.60); REDCELL DISTRIBUTION WIDTH-CV 13.4 % (11.5-14.5)
[2020-01-14 13:47] LABS: ALBUMIN 4.4 gm/dL (3.5-5.0); BILIRUBIN,TOTAL 0.7 mg/dL (0.0-1.0); CALCIUM 8.8 mg/dL (8.4-10.2); CREATININE, serum 0.88 (0.66-1.25); POTASSIUM 3.9 mmol/L (3.4-5.0); TOTAL PROTEIN 7.6 gm/dL (6.4-8.2)
[2020-01-14 13:47] LABS: COLLECTION METHOD CLEAN CATCH
[2020-01-14 13:59] LABS: PH 6 (5-8); SQUAMOUS EPITHELIAL None Seen /hpf; URINE APPEARANCE Clear; URINE BACTERIA None Seen /hpf; URINE BILIRUBIN Negative (NEGATIVE); URINE BLOOD 1+ (NEGATIVE); URINE COLOR Yellow; URINE GLUCOSE 3+ (NEGATIVE); URINE KETONE Negative (NEGATIVE); URINE LEUKOCYTE ESTERASE Negative (NEGATIVE); URINE NITRATE Negative (NEGATIVE); URINE PROTEIN(semi-quant) Negative (NEGATIVE); URINE UROBILINOGEN Negative (NEGATIVE)
[2020-01-14] MEDS ORDERED: LEVAQUIN 5500 MG/TA1 PO (15:07)
[2020-01-14 15:24] VITALS: PULSE 70
== END 2020-01-14 15:24 | disposition home or self-care (01) ==
LOC: COL.ER 12:49
PROVIDERS: Nurse Practitioner Primary Care
DX: N41.9 Inflammatory disease of prostate, unspecified (principal); E11.40 Type 2 diabetes mellitus with diabetic neuropathy, unspecified; F41.9 Anxiety disorder, unspecified; M10.9 Gout, unspecified; Z87.442 Personal history of urinary calculi; Z96.653 Presence of artificial knee joint, bilateral; Z90.79 Acquired absence of other genital organ(s); Z98.61 Coronary angioplasty status; Z88.0 Allergy status to penicillin; Z88.1 Allergy status to other antibiotic agents; Z88.6 Allergy status to analgesic agent; Z88.8 Allergy status to other drugs, medicaments and biological substances; Z79.01 Long term (current) use of anticoagulants; Z79.84 Long term (current) use of oral hypoglycemic drugs
CPT/HCPCS: J2270; J7030; Q9967

== ENCOUNTER 2020-02-25 23:49 | Emergency (ER) | payer OTHER ==
[~2020-02-25] VITALS: Ht 185.4 cm; Wt 106.8 kg
[2020-02-26 00:27] LABS: BASO # 0.1 (0.0-0.2); EOS # 0.2 (0.0-0.7); EOS % 2.9 % (0-4.0); GRAN # 5.4 (1.4-6.5); GRAN % 67.9 % (42.2-75.2); HEMATOCRIT 43.8 % (42.0-52.0); HEMOGLOBIN 14.7 g/dl (13.5-18.0); LYMPH # 1.6 (1.2-3.4); LYMPH % 20.6 % (20.0-51.0); MEAN CELL VOLUME 92 fl (80.0-100.0); MEAN CORPUSCULAR HEMOGLOBIN 31 pg (27.0-31.0); MEAN CORPUSCULAR HGB CONC 34 g/dl (33.0-37.0); MEAN PLATELET VOLUME 9.9 fl (7.4-10.4); MONO # 0.6 (0.1-0.6); MONO % 7.2 % (1.7-9.3); PLATELET COUNT 254 K/mm3 (130-400); RED BLOOD COUNT 4.78 M/mm3 (4.20-5.60); REDCELL DISTRIBUTION WIDTH-CV 13.2 % (11.5-14.5)
[2020-02-26 00:31] LABS: COLLECTION METHOD CLEAN CATCH
[2020-02-26 00:36] LABS: MUCOUS Present /lpf; PH 5 (5-8); SQUAMOUS EPITHELIAL None Seen /hpf; URINE APPEARANCE Clear; URINE BACTERIA None Seen /hpf; URINE BILIRUBIN Negative (NEGATIVE); URINE BLOOD Negative (NEGATIVE); URINE COLOR Yellow; URINE GLUCOSE 3+ (NEGATIVE); URINE KETONE Negative (NEGATIVE); URINE LEUKOCYTE ESTERASE Negative (NEGATIVE); URINE NITRATE Negative (NEGATIVE); URINE PROTEIN(semi-quant) Negative (NEGATIVE); URINE RBC None Seen /hpf; URINE UROBILINOGEN Negative (NEGATIVE); URINE WBC 0-2 /hpf
[2020-02-26 00:37] LABS: ALBUMIN 4.2 gm/dL (3.5-5.0); BILIRUBIN,TOTAL 0.7 mg/dL (0.0-1.0); CALCIUM 8.9 mg/dL (8.4-10.2); CREATININE, serum 1.05 (0.66-1.25); POTASSIUM 3.6 mmol/L (3.4-5.0); TOTAL PROTEIN 7.5 gm/dL (6.4-8.2)
[2020-02-26 02:13] VITALS: BP 124/66; PULSE 68; TEMP 97.6
== END 2020-02-26 02:45 | disposition home or self-care (01) ==
LOC: COL.ER 23:49
PROVIDERS: Emergency Medicine
DX: R10.32 Left lower quadrant pain (principal); R11.2 Nausea with vomiting, unspecified; R19.7 Diarrhea, unspecified; R10.13 Epigastric pain; Z87.891 Personal history of nicotine dependence; Z98.61 Coronary angioplasty status; Z88.0 Allergy status to penicillin; Z88.1 Allergy status to other antibiotic agents; Z88.6 Allergy status to analgesic agent; Z88.8 Allergy status to other drugs, medicaments and biological substances; Z79.01 Long term (current) use of anticoagulants
CPT/HCPCS: J2270; J2405; J7030; Q9967

== ENCOUNTER 2020-05-09 13:01 | Emergency (ER) | payer OTHER ==
[~2020-05-09] VITALS: Ht 185.4 cm; Wt 109.1 kg
[2020-05-09 13:13] VITALS: TEMP 97.9
[2020-05-09 14:25] LABS: BASO # 0.1 (0.0-0.2); BASO % 0.7 % (0.0-2.0); EOS # 0.1 (0.0-0.7); EOS % 1.6 % (0-4.0); GRAN # 5.6 (1.4-6.5); GRAN % 74.8 % (42.2-75.2); HEMATOCRIT 47.8 % (42.0-52.0); HEMOGLOBIN 16.1 g/dl (13.5-18.0); LYMPH # 1.1 (1.2-3.4); MEAN CELL VOLUME 94 fl (80.0-100.0); MEAN CORPUSCULAR HEMOGLOBIN 32 pg (27.0-31.0); MEAN CORPUSCULAR HGB CONC 34 g/dl (33.0-37.0); MEAN PLATELET VOLUME 10.2 fl (7.4-10.4); MONO # 0.6 (0.1-0.6); MONO % 7.4 % (1.7-9.3); PLATELET COUNT 277 K/mm3 (130-400); RED BLOOD COUNT 5.07 M/mm3 (4.20-5.60); REDCELL DISTRIBUTION WIDTH-CV 13.6 % (11.5-14.5)
[2020-05-09 14:39] LABS: ALBUMIN 4.5 gm/dL (3.5-5.0); BILIRUBIN,TOTAL 0.9 mg/dL (0.0-1.0); C-REACTIVE PROTEIN 0.5 mg/dL (0.0-0.9); CALCIUM 9.2 mg/dL (8.4-10.2); CREATININE, serum 0.89 (0.66-1.25); POTASSIUM 3.9 mmol/L (3.4-5.0); TOTAL PROTEIN 8.7 gm/dL (6.4-8.2)
[2020-05-09 15:39] LABS: CLOSTRIDIUM DIFF A/B NEG; CLOSTRIDIUM DIFF A/B INTERP No C.diff present
[2020-05-09 17:34] LABS: COLLECTION METHOD CLEAN CATCH
[2020-05-09 17:40] LABS: MUCOUS Present /lpf; PH 5 (5-8); SQUAMOUS EPITHELIAL 0-2 /hpf; URINE APPEARANCE Hazy; URINE BACTERIA None Seen /hpf; URINE BILIRUBIN Negative (NEGATIVE); URINE BLOOD Negative (NEGATIVE); URINE COLOR Yellow; URINE GLUCOSE 3+ (NEGATIVE); URINE KETONE Negative (NEGATIVE); URINE LEUKOCYTE ESTERASE Negative (NEGATIVE); URINE NITRATE Negative (NEGATIVE); URINE PROTEIN(semi-quant) Negative (NEGATIVE); URINE RBC 0-2 /hpf; URINE UROBILINOGEN Negative (NEGATIVE); URINE WBC 0-2 /hpf
[2020-05-09] MEDS ORDERED: BENTYL 20MG20 MG/TAB PO (17:59)
[2020-05-09] MEDS ORDERED: FLAGYL500 MG PO (19:30)
[2020-05-09] MEDS ORDERED: MS CONTIN 115 MG/TAB PO (19:30)
[2020-05-09 20:00] VITALS: BP 130/68; PULSE 70
== END 2020-05-09 20:00 | disposition home or self-care (01) ==
LOC: COL.ER 13:01
PROVIDERS: Emergency Medicine; Nurse Practitioner Primary Care
DX: K52.9 Noninfective gastroenteritis and colitis, unspecified (principal); Z87.891 Personal history of nicotine dependence; E11.69 Type 2 diabetes mellitus with other specified complication; M10.9 Gout, unspecified; Z88.5 Allergy status to narcotic agent; Z88.6 Allergy status to analgesic agent; Z88.8 Allergy status to other drugs, medicaments and biological substances; Z88.1 Allergy status to other antibiotic agents; Z79.84 Long term (current) use of oral hypoglycemic drugs; Z79.01 Long term (current) use of anticoagulants
CPT/HCPCS: J2270; J7030; Q9967

== ENCOUNTER 2020-05-31 02:19 | Emergency (ER) | payer OTHER ==
[~2020-05-31] VITALS: Ht 185.4 cm; Wt 109.1 kg
[2020-05-31 02:31] VITALS: TEMP 97.6
[2020-05-31] MEDS ORDERED: PREDNISONE20 MG PO (03:39)
[2020-05-31 04:11] VITALS: BP 144/78; PULSE 98
== END 2020-05-31 04:11 | disposition home or self-care (01) ==
LOC: COL.ER 02:19
DX: L50.0 Allergic urticaria (principal); E11.40 Type 2 diabetes mellitus with diabetic neuropathy, unspecified; F41.9 Anxiety disorder, unspecified; M10.9 Gout, unspecified; G89.29 Other chronic pain; M54.9 Dorsalgia, unspecified; Z88.5 Allergy status to narcotic agent; Z88.0 Allergy status to penicillin; Z88.1 Allergy status to other antibiotic agents; Z88.8 Allergy status to other drugs, medicaments and biological substances; Z87.891 Personal history of nicotine dependence; Z79.891 Long term (current) use of opiate analgesic; Z79.01 Long term (current) use of anticoagulants; Z79.899 Other long term (current) drug therapy
CPT/HCPCS: J7512

== ENCOUNTER 2020-06-23 16:47 | Emergency (ER) | payer MEDICARE, OTHER ==
[~2020-06-23] VITALS: Ht 185.4 cm; Wt 106.8 kg
[2020-06-23 16:49] VITALS: TEMP 97.4
[2020-06-23] MEDS ORDERED: ZOFRAN 4MG T4 MG/TAB PO (18:37)
[2020-06-23 18:48] VITALS: BP 153/102; PULSE 66
== END 2020-06-23 18:54 | disposition home or self-care (01) ==
LOC: COL.ER 16:47
DX: S09.90XA Unspecified injury of head, initial encounter (principal); S80.211A Abrasion, right knee, initial encounter; M25.512 Pain in left shoulder; M25.561 Pain in right knee; Z79.01 Long term (current) use of anticoagulants; Z88.6 Allergy status to analgesic agent; Z88.0 Allergy status to penicillin; Z88.1 Allergy status to other antibiotic agents; Z79.52 Long term (current) use of systemic steroids; W01.198A Fall on same level from slipping, tripping and stumbling with subsequent striking against other object, initial encounter; Y92.000 Kitchen of unspecified non-institutional (private) residence as the place of occurrence of the external cause
CPT/HCPCS: J3010

== ENCOUNTER 2020-09-02 10:23 | Emergency (ER) | payer OTHER ==
[~2020-09-02] VITALS: Ht 185.4 cm; Wt 106.8 kg
[2020-09-02 11:04] VITALS: TEMP 97.7
[2020-09-02 12:05] VITALS: BP 116/72; PULSE 71
== END 2020-09-02 12:05 | disposition home or self-care (01) ==
LOC: COL.ER 10:23
DX: H10.9 Unspecified conjunctivitis (principal)

== ENCOUNTER 2020-10-16 21:28 | Emergency (ER) | payer OTHER ==
[~2020-10-16] VITALS: Ht 185.4 cm; Wt 109.1 kg
[2020-10-16 22:27] LABS: BASO # 0.1 (0.0-0.2); BASO % 0.7 % (0.0-2.0); EOS # 0.2 (0.0-0.7); EOS % 1.9 % (0-4.0); GRAN # 6.4 (1.4-6.5); GRAN % 70.9 % (42.2-75.2); HEMATOCRIT 46.4 % (42.0-52.0); HEMOGLOBIN 15.8 g/dl (13.5-18.0); LYMPH # 1.7 (1.2-3.4); LYMPH % 18.4 % (20.0-51.0); MEAN CELL VOLUME 93 fl (80.0-100.0); MEAN CORPUSCULAR HEMOGLOBIN 32 pg (27.0-31.0); MEAN CORPUSCULAR HGB CONC 34 g/dl (33.0-37.0); MEAN PLATELET VOLUME 10.5 fl (7.4-10.4); MONO # 0.7 (0.1-0.6); MONO % 7.7 % (1.7-9.3); PLATELET COUNT 244 K/mm3 (130-400); RED BLOOD COUNT 5.01 M/mm3 (4.20-5.60); REDCELL DISTRIBUTION WIDTH-CV 14.1 % (11.5-14.5)
[2020-10-16 22:45] LABS: ALBUMIN 4.6 gm/dL (3.5-5.0); BILIRUBIN,TOTAL 1.3 mg/dL (0.0-1.0); CALCIUM 8.8 mg/dL (8.4-10.2); CREATININE, serum 0.79 (0.66-1.25); POTASSIUM 4.1 mmol/L (3.4-5.0); TOTAL PROTEIN 8.3 gm/dL (6.4-8.2)
[2020-10-16 23:01] LABS: ERYTHROCYTE SEDIMENTATION RATE 13 mm/hr (0-30)
[2020-10-16] MEDS ORDERED: MEDROL 4MG DOSPA4 MG PO (23:05)
[2020-10-16 23:24] VITALS: BP 144/85; PULSE 81; TEMP 97.4
== END 2020-10-16 23:24 | disposition home or self-care (01) ==
LOC: COL.ER 21:28
PROVIDERS: Family Medicine
DX: M54.16 Radiculopathy, lumbar region (principal); G43.909 Migraine, unspecified, not intractable, without status migrainosus; Z86.711 Personal history of pulmonary embolism; Z88.6 Allergy status to analgesic agent; Z79.1 Long term (current) use of non-steroidal anti-inflammatories (NSAID)
CPT/HCPCS: J2930

== ENCOUNTER 2020-10-28 21:05 | Emergency (ER) | payer OTHER ==
[~2020-10-28 21:05] MED LIST changes: +MEDROL 4MG DOSPA4 MG PO
[2020-10-28 21:09] VITALS: TEMP 97.9
[2020-10-28 22:42] LABS: BASO # 0.1 (0.0-0.2); BASO % 0.7 % (0.0-2.0); EOS # 0.2 (0.0-0.7); EOS % 1.6 % (0-4.0); GRAN # 9.5 (1.4-6.5); GRAN % 77.9 % (42.2-75.2); HEMATOCRIT 43.4 % (42.0-52.0); LYMPH # 1.5 (1.2-3.4); LYMPH % 12.5 % (20.0-51.0); MEAN CELL VOLUME 93 fl (80.0-100.0); MEAN CORPUSCULAR HEMOGLOBIN 32 pg (27.0-31.0); MEAN CORPUSCULAR HGB CONC 35 g/dl (33.0-37.0); MONO # 0.8 (0.1-0.6); MONO % 6.6 % (1.7-9.3); PLATELET COUNT 238 K/mm3 (130-400); RED BLOOD COUNT 4.69 M/mm3 (4.20-5.60); REDCELL DISTRIBUTION WIDTH-CV 13.8 % (11.5-14.5)
[2020-10-28 22:52] LABS: ALANINE AMINOTRANSFERASE 20 U/L (4-49); ALKALINE PHOSPHATASE 95 U/L (50-136); ANION GAP 9 mmol/L (7-16); AST,SGOT 21 U/L (15-37); BILIRUBIN,TOTAL 0.5 mg/dL (0.0-1.0); BLOOD UREA NITROGEN 16 mg/dL (9-20); CALCIUM 8.8 mg/dL (8.4-10.2); CARBON DIOXIDE 23 mmol/L (22-30); CHLORIDE 109 mmol/L (98-107); CREATININE, serum 0.83 (0.66-1.25); GLUCOSE 114 mg/dL (74-106); POTASSIUM 3.5 mmol/L (3.4-5.0); SODIUM 141 mmol/L (137-145); TOTAL PROTEIN 7.1 gm/dL (6.4-8.2)
[2020-10-28 23:04] LABS: TROPONIN-I < 0.012 ng/mL (0.000-0.035)
[2020-10-29 01:08] VITALS: BP 114/67; PULSE 72
== END 2020-10-29 01:08 | disposition home or self-care (01) ==
LOC: COL.ER 21:05
PROVIDERS: Personal Emergency Response Attendant
DX: R07.9 Chest pain, unspecified (principal); G43.909 Migraine, unspecified, not intractable, without status migrainosus; E78.5 Hyperlipidemia, unspecified; Z79.01 Long term (current) use of anticoagulants; Z88.6 Allergy status to analgesic agent; Z87.891 Personal history of nicotine dependence; Z79.899 Other long term (current) drug therapy
CPT/HCPCS: J2270; J2405; J7030

== ENCOUNTER 2020-11-08 04:19 | Emergency (ER) | payer OTHER ==
[~2020-11-08] VITALS: Ht 185.4 cm; Wt 113.6 kg
[2020-11-08 04:28] VITALS: TEMP 97.8
[2020-11-08 04:49] LABS: COLLECTION METHOD CLEAN CATCH
[2020-11-08 04:54] LABS: PH 6 (5-8); SQUAMOUS EPITHELIAL None Seen /hpf; URINE APPEARANCE Clear; URINE BACTERIA None Seen /hpf; URINE BILIRUBIN Negative (NEGATIVE); URINE BLOOD Negative (NEGATIVE); URINE COLOR Yellow; URINE GLUCOSE 3+ (NEGATIVE); URINE KETONE Negative (NEGATIVE); URINE LEUKOCYTE ESTERASE Negative (NEGATIVE); URINE NITRATE Negative (NEGATIVE); URINE PROTEIN(semi-quant) Negative (NEGATIVE); URINE RBC 0-2 /hpf
[2020-11-08] MEDS ORDERED: LIDODERM 5% PATC1 EA TP (05:29)
[2020-11-08 05:51] VITALS: BP 145/85; PULSE 95
== END 2020-11-08 05:51 | disposition home or self-care (01) ==
LOC: COL.ER 04:19
PROVIDERS: Emergency Medicine
DX: M54.5 Low back pain (principal); Z88.6 Allergy status to analgesic agent

== ENCOUNTER 2020-11-12 21:10 | Emergency (ER) | payer OTHER ==
[~2020-11-12] VITALS: Ht 185.4 cm; Wt 111.4 kg
[2020-11-12 21:50] VITALS: TEMP 97.5
[2020-11-12 23:15] LABS: BASO % 0.6 % (0.0-2.0); EOS # 0.3 (0.0-0.7); EOS % 3.6 % (0-4.0); GRAN # 4.7 (1.4-6.5); GRAN % 65.7 % (42.2-75.2); HEMATOCRIT 44.1 % (42.0-52.0); LYMPH # 1.5 (1.2-3.4); LYMPH % 20.7 % (20.0-51.0); MEAN CELL VOLUME 94 fl (80.0-100.0); MEAN CORPUSCULAR HEMOGLOBIN 32 pg (27.0-31.0); MEAN CORPUSCULAR HGB CONC 34 g/dl (33.0-37.0); MONO # 0.7 (0.1-0.6); PLATELET COUNT 236 K/mm3 (130-400); RED BLOOD COUNT 4.67 M/mm3 (4.20-5.60); REDCELL DISTRIBUTION WIDTH-CV 13.9 % (11.5-14.5)
[2020-11-12 23:23] LABS: INR 1.1 (0.8-3.0); PROTHROMBIN TIME 12.7 SECONDS (9.7-12.8)
[2020-11-12 23:26] LABS: PARTIAL THROMBOPLASTIN TIME 36.9 SECONDS (26.0-37.0)
[2020-11-12 23:33] LABS: ALANINE AMINOTRANSFERASE 25 U/L (0-55); ALBUMIN 3.6 gm/dL (3.4-4.8); ALKALINE PHOSPHATASE 99 U/L (0-750); ANION GAP 10 mmol/L; AST,SGOT 17 U/L (5-34); BILIRUBIN,TOTAL 0.6 mg/dL (0.2-1.2); BLOOD UREA NITROGEN 20 mg/dL (8-26); CALCIUM 8.9 mg/dL (8.4-10.2); CARBON DIOXIDE 20 mEq/L (23-31); CHLORIDE 110 mmol/L (98-107); CREATININE, serum 0.95 mg/dL (0.72-1.25); GLUCOSE 110 mg/dL (70-99); LIPASE 56 U/L (8-78); POTASSIUM 3.9 mmol/L (3.5-4.5); SODIUM 140 mmol/L (136-145); TOTAL PROTEIN 7.1 gm/dL (6.2-8.1)
[2020-11-12 23:39] LABS: TROPONIN-I < 0.010 ng/mL (0.00-0.033)
[2020-11-13 02:52] VITALS: BP 146/70; PULSE 76
== END 2020-11-13 02:52 | disposition home or self-care (01) ==
LOC: COL.ER 21:10
PROVIDERS: Student in an Organized Health Care Education/Training Program
DX: R07.89 Other chest pain (principal); G43.909 Migraine, unspecified, not intractable, without status migrainosus; E78.5 Hyperlipidemia, unspecified; M10.9 Gout, unspecified; Z86.711 Personal history of pulmonary embolism; Z79.01 Long term (current) use of anticoagulants; Z79.899 Other long term (current) drug therapy; Z79.1 Long term (current) use of non-steroidal anti-inflammatories (NSAID)
CPT/HCPCS: J2270; J2405; J3010; Q9967

== ENCOUNTER 2020-11-14 19:42 | Emergency (ER) | payer OTHER ==
[~2020-11-14] VITALS: Ht 208.3 cm; Wt 111.4 kg
[2020-11-14 20:38] LABS: COLLECTION METHOD CLEAN CATCH
[2020-11-14 20:45] LABS: MUCOUS Present /lpf; PH 6 (5-8); SQUAMOUS EPITHELIAL None Seen /hpf; URINE APPEARANCE Clear; URINE BACTERIA None Seen /hpf; URINE BILIRUBIN Negative (NEGATIVE); URINE BLOOD 2+ (NEGATIVE); URINE COLOR Yellow; URINE GLUCOSE 3+ (NEGATIVE); URINE KETONE Negative (NEGATIVE); URINE LEUKOCYTE ESTERASE Negative (NEGATIVE); URINE NITRATE Negative (NEGATIVE); URINE PROTEIN(semi-quant) Negative (NEGATIVE); URINE RBC >50 /hpf
[2020-11-14 22:12] LABS: BASO # 0.1 (0.0-0.2); BASO % 0.9 % (0.0-2.0); EOS # 0.3 (0.0-0.7); EOS % 4.2 % (0-4.0); GRAN # 4.4 (1.4-6.5); GRAN % 64.2 % (42.2-75.2); HEMATOCRIT 44.3 % (42.0-52.0); HEMOGLOBIN 14.7 g/dl (13.5-18.0); LYMPH # 1.5 (1.2-3.4); MEAN CELL VOLUME 96 fl (80.0-100.0); MEAN CORPUSCULAR HEMOGLOBIN 32 pg (27.0-31.0); MEAN CORPUSCULAR HGB CONC 33 g/dl (33.0-37.0); MEAN PLATELET VOLUME 10.1 fl (7.4-10.4); MONO # 0.6 (0.1-0.6); MONO % 8.3 % (1.7-9.3); PLATELET COUNT 226 K/mm3 (130-400); RED BLOOD COUNT 4.63 M/mm3 (4.20-5.60)
[2020-11-14 22:32] LABS: ALBUMIN 3.7 gm/dL (3.4-4.8); BILIRUBIN,TOTAL 0.6 mg/dL (0.2-1.2); CALCIUM 8.9 mg/dL (8.4-10.2); CREATININE, serum 0.91 mg/dL (0.72-1.25); POTASSIUM 3.7 mmol/L (3.5-4.5); TOTAL PROTEIN 7.1 gm/dL (6.2-8.1)
[2020-11-14 23:48] VITALS: BP 133/81; PULSE 71; TEMP 98.1
== END 2020-11-14 23:30 | disposition home or self-care (01) ==
LOC: COL.ER 19:42
PROVIDERS: Emergency Medicine
DX: R31.9 Hematuria, unspecified (principal); R10.32 Left lower quadrant pain; M10.9 Gout, unspecified; G43.909 Migraine, unspecified, not intractable, without status migrainosus; K58.9 Irritable bowel syndrome, unspecified; E78.5 Hyperlipidemia, unspecified; Z86.711 Personal history of pulmonary embolism; Z88.5 Allergy status to narcotic agent; Z79.01 Long term (current) use of anticoagulants; Z79.899 Other long term (current) drug therapy
CPT/HCPCS: J2270; J7030; Q9967

== ENCOUNTER → 2020-11-28 | Emergency (ER) | payer OTHER ==
[~2020-11-28] VITALS: Ht 185.4 cm; Wt 109.1 kg
[2020-11-28 19:52] VITALS: BP 141/85; PULSE 79; TEMP 97.7
== END ==
LOC: COL.ER 19:48
DX: S01.81XA Laceration without foreign body of other part of head, initial encounter (principal); S60.221A Contusion of right hand, initial encounter; S40.011A Contusion of right shoulder, initial encounter; R31.9 Hematuria, unspecified; E11.40 Type 2 diabetes mellitus with diabetic neuropathy, unspecified; I25.10 Atherosclerotic heart disease of native coronary artery without angina pectoris; K21.9 Gastro-esophageal reflux disease without esophagitis; M10.9 Gout, unspecified; I10 Essential (primary) hypertension; F17.290 Nicotine dependence, other tobacco product, uncomplicated; Z88.5 Allergy status to narcotic agent; Z79.01 Long term (current) use of anticoagulants; Z79.899 Other long term (current) drug therapy; W01.198A Fall on same level from slipping, tripping and stumbling with subsequent striking against other object, initial encounter; Y93.01 Activity, walking, marching and hiking; Y92.480 Sidewalk as the place of occurrence of the external cause

== ENCOUNTER → 2020-12-03 | Outpatient (CLI) | payer OTHER ==
[2020-12-03 13:18] VITALS: BP 133/71; PULSE 79; TEMP 98.7
== END ==
LOC: COL.ER 13:07
DX: Z48.02 Encounter for removal of sutures (principal)

== ENCOUNTER 2021-03-14 04:25 | Emergency (ER) | payer OTHER, MEDICARE ==
[~2021-03-14] VITALS: Ht 185.4 cm; Wt 118.2 kg
[2021-03-14 04:28] VITALS: TEMP 98.7
[2021-03-14 04:49] LABS: BASO # 0.1 K/mm3 (0.0-0.2); BASO % 1.4 % (0.0-2.0); EOS # 0.5 K/mm3 (0.0-0.7); EOS % 6.5 % (0.0-4.0); GRAN % 61.9 % (42.2-75.2); HEMATOCRIT 41.5 % (42.0-52.0); LYMPH # 1.7 K/mm3 (1.2-3.4); MEAN CELL VOLUME 95 fl (80.0-100.0); MEAN CORPUSCULAR HEMOGLOBIN 32 pg (27-31); MEAN CORPUSCULAR HGB CONC 34 g/dl (33.0-37.0); MEAN PLATELET VOLUME 10.3 fl (7.4-10.4); MONO # 0.7 K/mm3 (0.1-0.6); MONO % 8.5 % (1.7-9.3); PLATELET COUNT 222 K/mm3 (130-400); RED BLOOD COUNT 4.39 M/mm3 (4.20-5.60); REDCELL DISTRIBUTION WIDTH-CV 13.9 % (11.5-14.5)
[2021-03-14 05:04] LABS: ALANINE AMINOTRANSFERASE 33 U/L (0-55); ALBUMIN 3.8 gm/dL (3.4-4.8); ALKALINE PHOSPHATASE 120 U/L (40-150); ANION GAP 12 mmol/L (7-16); AST,SGOT 27 U/L (5-34); BILIRUBIN,TOTAL 0.9 mg/dL (0.2-1.2); BLOOD UREA NITROGEN 14 mg/dL (8-26); C-REACTIVE PROTEIN 0.29 mg/dL (0.00-0.50); CALCIUM 9.2 mg/dL (8.4-10.2); CARBON DIOXIDE 19 mmol/L (23-31); CHLORIDE 109 mmol/L (98-107); CREATINE KINASE 44 U/L (30-200); CREATININE, serum 0.83 mg/dL (0.72-1.25); GLUCOSE 117 mg/dL (70-99); POTASSIUM 4.1 mmol/L (3.5-4.5); SODIUM 140 mmol/L (136-145); TOTAL PROTEIN 7.5 gm/dL (6.2-8.1)
[2021-03-14 05:13] LABS: TROPONIN-I < 0.010 ng/mL (0.00-0.033)
[2021-03-14 06:12] LABS: COLLECTION METHOD CLEAN CATCH
[2021-03-14 06:34] LABS: PH 6 (5-8); SQUAMOUS EPITHELIAL None Seen /hpf (0-10); URINE APPEARANCE Hazy (CLEAR/HAZY); URINE BACTERIA None Seen /hpf (NONE SEEN); URINE BILIRUBIN Negative (NEGATIVE); URINE BLOOD 3+ (NEGATIVE); URINE COLOR Yellow (YELLOW); URINE GLUCOSE Negative (NEGATIVE); URINE KETONE Negative (NEGATIVE); URINE LEUKOCYTE ESTERASE Trace (NEGATIVE); URINE NITRATE Negative (NEGATIVE); URINE PROTEIN(semi-quant) 1+ (NEGATIVE); URINE RBC >50 /hpf (0-2); URINE UROBILINOGEN >=4.0 (NEGATIVE)
[2021-03-14] MEDS ORDERED: CIPRO 500MG TA500 MG PO (06:54)
[2021-03-14 08:39] VITALS: BP 133/80; PULSE 61
== END 2021-03-14 08:41 | disposition home or self-care (01) ==
LOC: COL.ER 04:25
PROVIDERS: Emergency Medicine
DX: N39.0 Urinary tract infection, site not specified (principal); R07.81 Pleurodynia; M79.10 Myalgia, unspecified site; E11.40 Type 2 diabetes mellitus with diabetic neuropathy, unspecified; F41.9 Anxiety disorder, unspecified; M10.9 Gout, unspecified; Z85.46 Personal history of malignant neoplasm of prostate; Z87.442 Personal history of urinary calculi; Z20.822 Contact with and (suspected) exposure to COVID-19; Z79.899 Other long term (current) drug therapy
CPT/HCPCS: J2270; J2405; J7030; Q9967

== ENCOUNTER 2021-05-05 15:30 | Emergency (ER) | payer OTHER, MEDICARE ==
[~2021-05-05] VITALS: Ht 185.4 cm; Wt 113.6 kg
[2021-05-05 17:26] VITALS: BP 166/91; PULSE 85; TEMP 97.8
== END 2021-05-05 17:29 | disposition home or self-care (01) ==
LOC: COL.ER 15:30
DX: S90.212A Contusion of left great toe with damage to nail, initial encounter (principal); S30.0XXA Contusion of lower back and pelvis, initial encounter; Z79.1 Long term (current) use of non-steroidal anti-inflammatories (NSAID); W00.9XXA Unspecified fall due to ice and snow, initial encounter
CPT/HCPCS: J2270

== ENCOUNTER 2021-05-26 09:32 | Emergency (ER) | payer OTHER, MEDICARE ==
[~2021-05-26] VITALS: Ht 185.4 cm; Wt 113.6 kg
[2021-05-26 09:46] VITALS: TEMP 96.9
[2021-05-26 11:06] LABS: BASO # 0.1 K/mm3 (0.0-0.2); BASO % 0.9 % (0.0-2.0); EOS # 0.2 K/mm3 (0.0-0.7); EOS % 3.9 % (0.0-4.0); GRAN # 3.6 K/mm3 (1.4-6.5); GRAN % 64.7 % (42.2-75.2); HEMATOCRIT 41.2 % (42.0-52.0); HEMOGLOBIN 14.3 g/dl (13.5-18.0); LYMPH % 18.1 % (20.0-51.0); MEAN CELL VOLUME 93 fl (80.0-100.0); MEAN CORPUSCULAR HEMOGLOBIN 32 pg (27-31); MEAN CORPUSCULAR HGB CONC 35 g/dl (33.0-37.0); MONO # 0.7 K/mm3 (0.1-0.6); PLATELET COUNT 229 K/mm3 (130-400); RED BLOOD COUNT 4.41 M/mm3 (4.20-5.60); REDCELL DISTRIBUTION WIDTH-CV 13.6 % (11.5-14.5)
[2021-05-26 11:21] LABS: ALBUMIN 3.7 gm/dL (3.4-4.8); BILIRUBIN,TOTAL 0.8 mg/dL (0.2-1.2); CALCIUM 8.8 mg/dL (8.4-10.2); CREATININE, serum 0.83 mg/dL (0.72-1.25); POTASSIUM 4.1 mmol/L (3.5-4.5); TOTAL PROTEIN 7.2 gm/dL (6.2-8.1)
[2021-05-26 11:26] LABS: TROPONIN-I 0.01 ng/mL (0.00-0.033)
[2021-05-26] MEDS ORDERED: ZITHROMAX Z PA250 MG PO (12:11)
[2021-05-26 12:19] VITALS: BP 149/86; PULSE 88
== END 2021-05-26 12:31 | disposition home or self-care (01) ==
LOC: COL.ER 09:32
PROVIDERS: Nurse Practitioner
DX: J20.9 Acute bronchitis, unspecified (principal); Z88.0 Allergy status to penicillin; Z88.1 Allergy status to other antibiotic agents; Z20.822 Contact with and (suspected) exposure to COVID-19
CPT/HCPCS: J8540

== ENCOUNTER 2021-06-02 17:21 | Emergency (ER) | payer OTHER, MEDICARE ==
[~2021-06-02] VITALS: Ht 185.4 cm; Wt 113.6 kg
[~2021-06-02 17:21] MED LIST changes: +ZITHROMAX Z PA250 MG PO
[2021-06-02 18:14] VITALS: TEMP 98.1
[2021-06-02 19:33] LABS: BASO # 0.1 K/mm3 (0.0-0.2); BASO % 0.5 % (0.0-2.0); EOS # 0.3 K/mm3 (0.0-0.7); EOS % 3.4 % (0.0-4.0); GRAN # 6.1 K/mm3 (1.4-6.5); HEMATOCRIT 42.4 % (42.0-52.0); HEMOGLOBIN 15.1 g/dl (13.5-18.0); LYMPH % 21.3 % (20.0-51.0); MEAN CELL VOLUME 93 fl (80.0-100.0); MEAN CORPUSCULAR HEMOGLOBIN 33 pg (27-31); MEAN CORPUSCULAR HGB CONC 36 g/dl (33.0-37.0); MONO # 0.6 K/mm3 (0.1-0.6); MONO % 6.8 % (1.7-9.3); PLATELET COUNT 258 K/mm3 (130-400); RED BLOOD COUNT 4.58 M/mm3 (4.20-5.60); REDCELL DISTRIBUTION WIDTH-CV 13.2 % (11.5-14.5)
[2021-06-02 20:02] LABS: TROPONIN-I < 0.010 ng/mL (0.00-0.033)
[2021-06-02 20:04] LABS: ALANINE AMINOTRANSFERASE 14 U/L (0-55); ALBUMIN 4.1 gm/dL (3.4-4.8); ALKALINE PHOSPHATASE 111 U/L (40-150); ANION GAP 9 mmol/L (7-16); AST,SGOT 15 U/L (5-34); BILIRUBIN,TOTAL 0.7 mg/dL (0.2-1.2); BLOOD UREA NITROGEN 15 mg/dL (8-26); CALCIUM 9.1 mg/dL (8.4-10.2); CARBON DIOXIDE 21 mmol/L (23-31); CHLORIDE 108 mmol/L (98-107); CREATININE, serum 0.79 mg/dL (0.72-1.25); GLUCOSE 96 mg/dL (70-99); POTASSIUM 4.3 mmol/L (3.5-4.5); SODIUM 138 mmol/L (136-145); TOTAL PROTEIN 7.5 gm/dL (6.2-8.1)
[2021-06-02] MEDS ORDERED: LEVAQUIN 5500 MG/TA1 PO (21:31)
[2021-06-02] MEDS ORDERED: PREDNISONE10 MG PO (21:31)
[2021-06-02] MEDS ORDERED: PROAIR HFA0.09 MG/AC IH (21:32)
[2021-06-02 21:57] VITALS: BP 122/88; PULSE 101
== END 2021-06-02 22:00 | disposition home or self-care (01) ==
LOC: COL.ER 17:21
PROVIDERS: Personal Emergency Response Attendant
DX: J20.9 Acute bronchitis, unspecified (principal); Z88.0 Allergy status to penicillin; Z88.1 Allergy status to other antibiotic agents
CPT/HCPCS: J1100; Q9967

== ENCOUNTER 2021-06-09 19:30 | Emergency (ER) | payer OTHER, MEDICARE ==
[~2021-06-09] VITALS: Ht 185.4 cm; Wt 113.2 kg
[~2021-06-09 19:30] MED LIST changes: +PREDNISONE10 MG PO
[2021-06-09 19:35] VITALS: BP 143/81; TEMP 98.2
[2021-06-09] MEDS ORDERED: ROBAXIN 75750 MG/TAB PO (19:59)
[2021-06-09] MEDS ORDERED: NORCO 325 MG-51 TAB PO (19:59)
[2021-06-09 20:23] VITALS: PULSE 89
== END 2021-06-09 20:23 | disposition home or self-care (01) ==
LOC: COL.ER 19:30
DX: S39.012A Strain of muscle, fascia and tendon of lower back, initial encounter (principal); Z98.890 Other specified postprocedural states; Z88.6 Allergy status to analgesic agent; X50.1XXA Overexertion from prolonged static or awkward postures, initial encounter; Y93.G1 Activity, food preparation and clean up

== ENCOUNTER 2021-07-01 15:37 | Emergency (ER) | payer OTHER, MEDICARE ==
[~2021-07-01] VITALS: Ht 185.4 cm; Wt 115.9 kg
[~2021-07-01 15:37] MED LIST changes: +NORCO 325 MG-51 TAB PO; +ROBAXIN 75750 MG/TAB PO
[2021-07-01 18:06] VITALS: BP 143/87; PULSE 84; TEMP 98.4
== END 2021-07-01 18:06 | disposition home or self-care (01) ==
LOC: COL.ER 15:37
DX: M79.662 Pain in left lower leg (principal); M54.50 Low back pain, unspecified; G89.29 Other chronic pain; Z86.711 Personal history of pulmonary embolism; Z79.01 Long term (current) use of anticoagulants

== ENCOUNTER → 2021-07-02 | Outpatient (CLI) | payer OTHER, MEDICARE | LOC: COL.VAS 07:24 | DX: M79.652 Pain in left thigh (principal); M79.89 Other specified soft tissue disorders ==

== ENCOUNTER 2021-07-24 05:53 | Emergency (ER) | payer OTHER, MEDICARE ==
[~2021-07-24] VITALS: Ht 185.4 cm; Wt 113.6 kg
[2021-07-24 05:55] VITALS: TEMP 97.4
[2021-07-24 06:34] LABS: BASO # 0.1 K/mm3 (0.0-0.2); EOS # 0.3 K/mm3 (0.0-0.7); EOS % 3.7 % (0.0-4.0); GRAN # 4.3 K/mm3 (1.4-6.5); GRAN % 64.3 % (42.2-75.2); HEMATOCRIT 43.5 % (42.0-52.0); HEMOGLOBIN 14.7 g/dl (13.5-18.0); LYMPH # 1.5 K/mm3 (1.2-3.4); LYMPH % 22.7 % (20.0-51.0); MEAN CELL VOLUME 95 fl (80.0-100.0); MEAN CORPUSCULAR HEMOGLOBIN 32 pg (27-31); MEAN CORPUSCULAR HGB CONC 34 g/dl (33.0-37.0); MEAN PLATELET VOLUME 10.4 fl (7.4-10.4); MONO # 0.5 K/mm3 (0.1-0.6); MONO % 7.9 % (1.7-9.3); PLATELET COUNT 223 K/mm3 (130-400); REDCELL DISTRIBUTION WIDTH-CV 13.5 % (11.5-14.5)
[2021-07-24 06:57] LABS: ALANINE AMINOTRANSFERASE 37 U/L (0-55); ALBUMIN 3.6 gm/dL (3.4-4.8); ALKALINE PHOSPHATASE 105 U/L (40-150); ANION GAP 11 mmol/L (7-16); AST,SGOT 28 U/L (5-34); BLOOD UREA NITROGEN 14 mg/dL (8-26); CARBON DIOXIDE 22 mmol/L (23-31); CHLORIDE 109 mmol/L (98-107); CREATINE KINASE 43 U/L (30-200); CREATININE, serum 0.81 mg/dL (0.72-1.25); GLUCOSE 118 mg/dL (70-99); POTASSIUM 3.6 mmol/L (3.5-4.5); SODIUM 142 mmol/L (136-145); TOTAL PROTEIN 7.2 gm/dL (6.2-8.1)
[2021-07-24 07:05] LABS: TROPONIN-I < 0.010 ng/mL (0.00-0.033)
[2021-07-24 07:48] VITALS: BP 134/69; PULSE 76
== END 2021-07-24 08:03 | disposition home or self-care (01) ==
LOC: COL.ER 05:53
PROVIDERS: Emergency Medicine
DX: R07.89 Other chest pain (principal); Z86.718 Personal history of other venous thrombosis and embolism; Z86.73 Personal history of transient ischemic attack (TIA), and cerebral infarction without residual deficits; Z98.61 Coronary angioplasty status; Z20.822 Contact with and (suspected) exposure to COVID-19; Z79.01 Long term (current) use of anticoagulants
CPT/HCPCS: J2060; J2405

== ENCOUNTER 2022-03-15 15:26 | Emergency (ER) | payer OTHER, MEDICARE ==
[~2022-03-15] VITALS: Ht 185.4 cm; Wt 125.0 kg
[2022-03-15 15:35] VITALS: TEMP 97.9
[2022-03-15] MEDS ORDERED: FLAGYL500 MG PO (17:12)
[2022-03-15] MEDS ORDERED: CIPRO 500MG TA500 MG PO (17:12)
[2022-03-15 17:27] VITALS: BP 124/61; PULSE 86
== END 2022-03-15 17:30 | disposition home or self-care (01) ==
LOC: COL.ER 15:26
DX: K57.32 Diverticulitis of large intestine without perforation or abscess without bleeding (principal); Z83.79 Family history of other diseases of the digestive system; Z88.0 Allergy status to penicillin; Z88.5 Allergy status to narcotic agent
CPT/HCPCS: J3010

== ENCOUNTER 2022-04-08 15:12 | Emergency (ER) | payer OTHER, MEDICARE ==
[~2022-04-08] VITALS: Ht 185.4 cm; Wt 109.1 kg
[2022-04-08 15:35] VITALS: TEMP 97.6
[2022-04-08 16:48] VITALS: BP 167/95; PULSE 75
[2022-04-08] MEDS ORDERED: VANCOCIN H125 MG/CAP PO (19:24)
== END 2022-04-08 16:48 | disposition home or self-care (01) ==
LOC: COL.ER 15:12
DX: A04.72 Enterocolitis due to Clostridium difficile, not specified as recurrent (principal); Z88.1 Allergy status to other antibiotic agents

== ENCOUNTER 2022-11-10 10:30 | Outpatient (RCR) | payer OTHER ==
[~2022-11-10 10:30] MED LIST changes: +ANTI-DIARRHEAL2 MG PO; +VANCOCIN H125 MG/CAP PO
== END 2022-11-14 | disposition home or self-care (01) ==
LOC: MKS.ESL.PT
DX: M75.02 Adhesive capsulitis of left shoulder (principal)

== ENCOUNTER → 2022-12-31 13:38 | Outpatient (RCR) | payer OTHER | LOC: MKS.ESL.PT 12-16 08:45 | DX: M75.02 Adhesive capsulitis of left shoulder (principal) ==

== ENCOUNTER 2023-02-20 17:30 | Emergency (ER) | payer OTHER ==
[~2023-02-20] VITALS: Ht 185.4 cm; Wt 113.6 kg
[~2023-02-20 17:30] MED LIST changes: +NORVASC 5MG5 MG/TAB PO
[2023-02-20 17:35] VITALS: TEMP 98.1
[2023-02-20 19:53] VITALS: BP 163/87; PULSE 75
== END 2023-02-20 19:53 | disposition home or self-care (01) ==
LOC: COL.ER 17:30
DX: M10.9 Gout, unspecified (principal); R11.0 Nausea

== ENCOUNTER 2023-03-14 09:32 | Emergency (ER) | payer OTHER ==
[~2023-03-14] VITALS: Ht 177.8 cm; Wt 113.6 kg
[2023-03-14 09:39] VITALS: TEMP 98
[2023-03-14] MEDS ORDERED: cefTRIAXone 1 G,Lidocaine PF 1% 2.1 ML IM ONE (10:15)
[2023-03-14] MEDS ORDERED: oxyCODONE/Acetaminophen 5-325 MG TAB PO ONE (10:15)
[2023-03-14] MEDS ORDERED: Morphine 10 MG/ML VIAL IM ONE (10:30)
[2023-03-14] MEDS ORDERED: CEPHALEXIN500 M1 PO (11:02)
[2023-03-14] MEDS ORDERED: BACTRIM DS 8001 TAB PO (11:02)
[2023-03-14 11:16] VITALS: BP 119/74; PULSE 70
== END 2023-03-14 11:09 | disposition home or self-care (01) ==
LOC: COL.ER 09:32
DX: L03.012 Cellulitis of left finger (principal); Z88.5 Allergy status to narcotic agent
CPT/HCPCS: J0696; J2270

== ENCOUNTER 2023-04-13 07:43 | Emergency (ER) | payer OTHER ==
[~2023-04-13] VITALS: Ht 185.4 cm; Wt 122.7 kg
[~2023-04-13 07:43] MED LIST changes: +BACTRIM DS 8001 TAB PO
[2023-04-13 08:01] VITALS: TEMP 98.1
[2023-04-13] MEDS ORDERED: Ondansetron 4 MG/2 ML VIAL IV ONE (08:30)
[2023-04-13] MEDS ORDERED: Morphine 4 MG/ML VIAL IV ONE ×3 (08:30→11:30)
[2023-04-13 10:13] LABS: BASO # 0.1 K/mm3 (0.0-0.2); BASO % 1.5 % (0.0-2.0); EOS # 0.2 K/mm3 (0.0-0.7); EOS % 2.4 % (0.0-4.0); GRAN # 4.7 K/mm3 (1.4-6.5); GRAN % 65.4 % (42.2-75.2); HEMATOCRIT 42.8 % (42.0-52.0); HEMOGLOBIN 14.1 g/dl (13.5-18.0); LYMPH # 1.6 K/mm3 (1.2-3.4); LYMPH % 22.6 % (20.0-51.0); MEAN CELL VOLUME 96 fl (80.0-100.0); MEAN CORPUSCULAR HEMOGLOBIN 32 pg (27-31); MEAN CORPUSCULAR HGB CONC 33 g/dl (33.0-37.0); MEAN PLATELET VOLUME 11.1 fl (7.4-10.4); MONO # 0.6 K/mm3 (0.1-0.6); MONO % 7.7 % (1.7-9.3); PLATELET COUNT 206 K/mm3 (130-400); RED BLOOD COUNT 4.48 M/mm3 (4.20-5.60); REDCELL DISTRIBUTION WIDTH-CV 13.6 % (11.5-14.5)
[2023-04-13 10:25] LABS: ALBUMIN 3.6 gm/dL (3.4-4.8); BILIRUBIN,TOTAL 0.9 mg/dL (0.2-1.2); CALCIUM 9.4 mg/dL (8.4-10.2); CREATININE, serum 0.79 mg/dL (0.72-1.25); INR 1.1 (0.8-3.0); MAGNESIUM 1.8 mg/dL (1.6-2.6); POTASSIUM 4.1 mmol/L (3.5-4.5); PROTHROMBIN TIME 11.4 SECONDS (9.7-12.8); TOTAL PROTEIN 7.1 gm/dL (6.2-8.1)
[2023-04-13 10:27] LABS: PARTIAL THROMBOPLASTIN TIME 27.1 SECONDS (26.0-37.0)
[2023-04-13 11:48] VITALS: BP 158/92; PULSE 64
== END 2023-04-13 12:01 | disposition home or self-care (01) ==
LOC: COL.ER 07:43
PROVIDERS: Emergency Medicine
DX: S80.02XA Contusion of left knee, initial encounter (principal); S20.212A Contusion of left front wall of thorax, initial encounter; M54.2 Cervicalgia; M54.6 Pain in thoracic spine; M54.50 Low back pain, unspecified; R51.9 Headache, unspecified; R03.0 Elevated blood-pressure reading, without diagnosis of hypertension; Z86.718 Personal history of other venous thrombosis and embolism; Z86.711 Personal history of pulmonary embolism; Z79.01 Long term (current) use of anticoagulants; Z98.890 Other specified postprocedural states; Z88.5 Allergy status to narcotic agent; Z96.653 Presence of artificial knee joint, bilateral; W01.0XXA Fall on same level from slipping, tripping and stumbling without subsequent striking against object, initial encounter; Y92.009 Unspecified place in unspecified non-institutional (private) residence as the place of occurrence of the external cause
CPT/HCPCS: J2270; J2405

== ENCOUNTER 2023-04-26 17:42 | Emergency (ER) | payer OTHER ==
[~2023-04-26] VITALS: Ht 185.4 cm; Wt 122.7 kg
[~2023-04-26 17:42] MED LIST changes: +LEVSIN 0.10.125 MG/T PO
[2023-04-26 18:19] VITALS: TEMP 98.5
[2023-04-26] MEDS ORDERED: CEPHALEXIN500 M1 PO (18:31)
[2023-04-26 19:19] VITALS: BP 160/89; PULSE 78
== END 2023-04-26 19:20 | disposition home or self-care (01) ==
LOC: COL.ER 17:42
DX: S90.452A Superficial foreign body, left great toe, initial encounter (principal); Z86.39 Personal history of other endocrine, nutritional and metabolic disease; E66.01 Morbid (severe) obesity due to excess calories; Z68.35 Body mass index [BMI] 35.0-35.9, adult; W45.8XXA Other foreign body or object entering through skin, initial encounter

== ENCOUNTER 2023-05-06 10:30 | Emergency (ER) | payer OTHER ==
[~2023-05-06] VITALS: Ht 185.4 cm; Wt 122.7 kg
[2023-05-06 10:30] VITALS: TEMP 97.9
[2023-05-06] MEDS ORDERED: Acetaminophen 500 MG TAB PO ONE (11:00)
[2023-05-06] MEDS ORDERED: LR 1,000 ML IV ONE (11:00)
[2023-05-06 11:15] LABS: BASO # 0.1 K/mm3 (0.0-0.2); BASO % 1.1 % (0.0-2.0); EOS # 0.3 K/mm3 (0.0-0.7); EOS % 3.6 % (0.0-4.0); GRAN # 5.8 K/mm3 (1.4-6.5); GRAN % 72.3 % (42.2-75.2); HEMATOCRIT 42.9 % (42.0-52.0); HEMOGLOBIN 14.4 g/dl (13.5-18.0); LYMPH # 1.4 K/mm3 (1.2-3.4); LYMPH % 16.9 % (20.0-51.0); MEAN CELL VOLUME 93 fl (80.0-100.0); MEAN CORPUSCULAR HEMOGLOBIN 31 pg (27-31); MEAN CORPUSCULAR HGB CONC 34 g/dl (33.0-37.0); MEAN PLATELET VOLUME 10.6 fl (7.4-10.4); MONO # 0.5 K/mm3 (0.1-0.6); MONO % 5.7 % (1.7-9.3); PLATELET COUNT 196 K/mm3 (130-400); REDCELL DISTRIBUTION WIDTH-CV 13.5 % (11.5-14.5)
[2023-05-06 11:33] LABS: ALBUMIN 3.5 gm/dL (3.4-4.8); BILIRUBIN,TOTAL 0.8 mg/dL (0.2-1.2); CALCIUM 8.8 mg/dL (8.4-10.2); CREATININE, serum 0.85 mg/dL (0.72-1.25); POTASSIUM 3.7 mmol/L (3.5-4.5)
[2023-05-06 11:42] LABS: TROPONIN-I 0.015 ng/mL (0.00-0.033)
[2023-05-06 12:21] LABS: COLLECTION METHOD CLEAN CATCH
[2023-05-06] MEDS ORDERED: Iohexol 300 - 100 ML VIAL IV ONE (12:32)
[2023-05-06] MEDS ORDERED: NS 100 ML IV SCH (12:33)
[2023-05-06 13:51] LABS: URINE APPEARANCE CLEAR (CLEAR/HAZY); URINE BLOOD NEGATIVE (NEGATIVE); URINE COLOR YELLOW (YELLOW); URINE GLUCOSE 2+ (NEGATIVE); URINE KETONE NEGATIVE (NEGATIVE); URINE NITRATE NEGATIVE (NEGATIVE); URINE PROTEIN(semi-quant) NEGATIVE (NEGATIVE)
[2023-05-06 14:13] VITALS: BP 162/82; PULSE 72
[2023-05-06] MEDS ORDERED: Ibuprofen 400 MG TAB PO ONE (14:15)
== END 2023-05-06 14:19 | disposition home or self-care (01) ==
LOC: COL.ER 10:30
PROVIDERS: Emergency Medicine
DX: I10 Essential (primary) hypertension (principal); Z98.890 Other specified postprocedural states; Z79.01 Long term (current) use of anticoagulants
CPT/HCPCS: J7120; Q9967

== ENCOUNTER 2023-10-10 10:06 | Emergency (ER) | payer OTHER ==
[~2023-10-10] VITALS: Ht 185.4 cm; Wt 126.4 kg
[2023-10-10 10:09] VITALS: TEMP 98.2
[2023-10-10] MEDS ORDERED: LR 1,000 ML IV ONE (10:30)
[2023-10-10] MEDS ORDERED: Ondansetron 4 MG/2 ML VIAL IV ONE (10:30)
[2023-10-10 10:44] LABS: BASO % 0.4 % (0.0-2.0); EOS # 0.1 K/mm3 (0.0-0.7); EOS % 1.9 % (0.0-4.0); GRAN # 4.7 K/mm3 (1.4-6.5); GRAN % 67.4 % (42.2-75.2); HEMATOCRIT 41.4 % (42.0-52.0); HEMOGLOBIN 14.1 g/dl (13.5-18.0); LYMPH # 1.6 K/mm3 (1.2-3.4); LYMPH % 22.6 % (20.0-51.0); MEAN CELL VOLUME 93 fl (80.0-100.0); MEAN CORPUSCULAR HEMOGLOBIN 32 pg (27-31); MEAN CORPUSCULAR HGB CONC 34 g/dl (33.0-37.0); MEAN PLATELET VOLUME 10.2 fl (7.4-10.4); MONO # 0.5 K/mm3 (0.1-0.6); MONO % 7.3 % (1.7-9.3); PLATELET COUNT 178 K/mm3 (130-400); RED BLOOD COUNT 4.46 M/mm3 (4.20-5.60); REDCELL DISTRIBUTION WIDTH-CV 12.8 % (11.5-14.5)
[2023-10-10 10:46] LABS: COLLECTION METHOD CLEAN CATCH
[2023-10-10 10:49] LABS: URINE APPEARANCE CLEAR (CLEAR/HAZY); URINE BLOOD NEGATIVE (NEGATIVE); URINE COLOR YELLOW (YELLOW); URINE GLUCOSE TRACE (NEGATIVE); URINE KETONE NEGATIVE (NEGATIVE); URINE NITRATE NEGATIVE (NEGATIVE); URINE PROTEIN(semi-quant) NEGATIVE (NEGATIVE)
[2023-10-10] MEDS ORDERED: Morphine 4 MG/ML VIAL IV ONE (11:00)
[2023-10-10 11:01] LABS: ALBUMIN 3.7 g/dL (3.4-4.8); C-REACTIVE PROTEIN 0.66 mg/dL (0.00-0.50); CALCIUM 9.1 mg/dL (8.4-10.2); CREATININE, serum 0.87 mg/dL (0.72-1.25); POTASSIUM 4.4 mEq/L (3.5-4.5); TOTAL PROTEIN 7.4 g/dl (6.2-8.1)
[2023-10-10] MEDS ORDERED: ZOFRAN ODT4 MG PO (11:12)
[2023-10-10 11:30] VITALS: BP 107/64; PULSE 82
== END 2023-10-10 11:47 | disposition home or self-care (01) ==
LOC: COL.ER 10:06
PROVIDERS: Family Medicine
DX: K52.9 Noninfective gastroenteritis and colitis, unspecified (principal); E86.0 Dehydration
CPT/HCPCS: J2270; J2405; J7120